=== PATIENT | female | born 1965 | race Caucasian/White ===

== ENCOUNTER 2020-05-06 11:07 | Outpatient (CLI) | payer SELFPAY ==
--- NOTE | 2020-05-06 | CT_ITS ---
WS: [id number] CT CHEST, ABDOMEN AND PELVIS WITH CONTRAST HISTORY: SOB/RLQ PAIN TECHNIQUE: Contiguous 5 mm axial imaging performed through the chest, abdomen and pelvis with IV cont rast, oral contrast has been provided. Coronal and sagittal reformats chest. Coronal and sagittal ref ormats through the abdomen and pelvis. All CT scans at [facility] use at least one of the se dose optimization techniques: automated exposure control; mA and/or kV adjustment per patient size (includes targeted exams where dose is matched to clinical indication); or iterative reconstruction. CONTRAST: Omnipaque 300; 95 mL IV. DLP: 2568.08 mGy-cm. COMPARISON: None available. Chest CT: Diffuse bilateral interstitial thickening. Linear areas of atelectasis from poor inspiratio n and multifocal areas of groundglass attenuation. No mass or pneumonia. No pleural effusions. Mild a therosclerosis aorta. No adenopathy. RIGHT thyroid nodule. Abdomen CT: Moderately enlarged liver extends over length of 20 cm with diffuse hepatic steatosis. Pr ior cholecystectomy. Normal size spleen and pancreas. No bile duct dilatation. Bilateral too small to characterize hypodensities within each kidney with no obstruction. No solid mass. No free fluid or a scites or free air. Normal aorta with no retroperitoneal adenopathy. Mild constipation. The appendix is normal. No mucosal wall thickening or inflammation. Pelvic CT: Prior hysterectomy. No free fluid in the pelvis. Minimally distended urinary bladder. T9 hemangioma. Sclerotic focus in T6 is probably a bone island. Notified HUEY Kirby at 05/06/2020 12:[address]/CT chest abd pel w con* IMPRESSION: 1. Diffuse, multilobar groundglass attenuation and interstitial thickening. Co rrelate for possible viral pneumonia. 2. Prior cholecystectomy. 3. Moderate hepatomegaly and severe hepatic steatosis. 4. No ascites or free fluid. 5. Normal appendix.
[2020-05-06] MEDS: iohexol 300 mg/mL 100 mL Btl IV (12:07)
== END 2020-05-06 11:08 | disposition home or self-care (01) ==
LOC: RAD 11:12
PROVIDERS: PCP Physician Assistant; Visit Provider Physician Assistant
DX: R06.02 Shortness of breath (principal); R10.31 Right lower quadrant pain; R16.0 Hepatomegaly, not elsewhere classified; K76.0 Fatty (change of) liver, not elsewhere classified
CPT/HCPCS: 71260; 74177

== ENCOUNTER 2020-05-10 10:58 | Inpatient (IN) | payer SELFPAY ==
[2020-05-10] VITALS (9 sets, daily range): BP systolic 111–149; BP diastolic 71–87; PULSE 88–106; RESP 15–22; TEMP 36.8–37; O2SAT 90–92; BMI 35.4
--- NOTE | 2020-05-10 11:24 | ECG_ITS ---
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 Measurements Intervals Allen Rate: 99 P: 6 CA: 155 QRS: 265 QRSD: 85 T: -4 QT: 334 QTc: 429 Interpretive Statements SINUS RHYTHM POSSIBLE RIGHT VENTRICULAR HYPERTROPHY [SOME/ALL OF: PROMINENT R IN V1, LATE TRANSITION, RAD, VANESSA, SSS] POSSIBLE ANTERIOR MYOCARDIAL INFARCTION , PROBABLY OLD [30 ms Q WAVE IN V3/V4, OR R < 0.2 mV IN V4] INFERIOR MYOCARDIAL INFARCTION , OF INDETERMINATE AGE [40+ ms Q WAVE AND/OR ST/T ABNORMALITY IN II/aVF] No previous ECG available for comparison Electronically Signed On 05-11-2020 17:20:45 CDT by Quinton Moran M.D. [id number]
--- NOTE | 2020-05-10 11:24 | XRR_ITS ---
PROCEDURE INFORMATION: Exam: XR Chest, 1 View Exam date and time: 05/10/2020 12:26 PM Age: 54 years old Clinical indication: Dyspnea and other: Hypoxia; Patient HX: Covid precautions; Additional info: Dyspnea, hypoxia TECHNIQUE: Imaging protocol: XR of the chest Views: 1 view. COMPARISON: CT chest abd pel w con* 05/06/2020 12:11 PM FINDINGS: Lungs: Possible faint peripheral ill-defined foci of airspace disease. No focal peripheral lung consolidation, air bronchogram formation, or silhouette sign. Pleural space: No pleural effusion or pneumothorax. Heart/Mediastinum: The cardiac silhouette is not enlarged. The mediastinal contours are normal. Vasculature: The thoracic aorta is tortuous. Bones/joints: No acute osseous abnormality. XR/XR chest 1V portable [id number] IMPRESSION: Possible mild bilateral peripheral airspace disease. Consider follow-up CT CHEST as it would be more sensitive in detecting ground-glass opacities typical of COVID-19 pneumonia.
--- NOTE | 2020-05-10 11:40 | PC.NURSE ---
Pt swabbed for COVID, all precautions maintained.
[2020-05-10 11:46] LABS: Basophils % 0.3 %; Eosinophils % 0.3 %; Hematocrit 36.8 % (37.0-47.0); Lymphocytes # 4.1 10^3/uL (0.8-4.8); Lymphocytes % 29.7 %; Mean Corpuscular HGB Conc 32.6 g/dL (30.0-36.0); Mean Corpuscular Hemoglobin 30.1 pg (28.0-34.0); Mean Corpuscular Volume 92.2 fL (81-99); Monocytes # 1.3 10^3/uL (0.2-0.9); Monocytes % 9.6 %; Neutrophils % 59.2 %; Nucleated Red Blood Cells % 0 %; Platelet Count 460 10^3/cmm (130-400); Red Blood Count 3.99 10^6/uL (4.1-5.3); Red Cell Distribution Width 11.9 % (12.1-15.1); White Blood Count 13.7 10^3/uL (4.0-10.0)
--- NOTE | 2020-05-10 11:55 | ED_ITS ---
HPI - Fever General: Chief Complaint: Fever Stated Complaint: SOB Time Seen by Provider: 05/10/20 11:01 History of Present Illness: HPI Narrative: This patient is a 54-year-old diabetic female who presents with 4 weeks of symptoms. Her symptoms include cough, shortness of breath, fevers, night sweats, nausea and dry heaves, myalgias and fatigue. She denies rash. She has been to her primary care provider at [facility] several times for this. She has had testing including 2- COVID tests, one several weeks ago and 1 about 5 days ago. Both were negative. She also had testing for tickborne illnesses which came back positive for a prior infection of ehrlichiosis and possible acute [place] spotted fever. She has been on doxycycline, Augmentin, Zithromax. She finished the doxycycline yesterday. She was noted to have a markedly elevated CRP at 218 on her last round of labs. She also had a CT of her chest abdomen and pelvis on May 06 which showed viral pneumonia and severe fatty liver. She comes in today because she is still feeling so terrible. MD elicited complaint: fever, malaise, weakness and other (Shortness of breath) Pertinent past history: diabetes (Blood sugars normally run around 200-2 50. They have been around 300 with this illness.) Onset (ago): week(s) (4) Context: recent antibiotic use Exacerbating factors: nothing Relieving factors: nothing Associated symptoms: Reports flank pain, chills, cough, headache(s), myalgias, nausea, night sweats, short of breath and vomiting (Dry heaves); Deny dysuria Review of Systems General: Reports: 10 or more systems reviewed and unremarkable except in HPI and below Const: Reports: chills and night sweats Resp: Reports: dyspnea and non-productive cough GI: Reports: nausea and vomiting (Dry heaves) : Reports: flank pain; Denies: difficulty voiding or dysuria Skin/Breast: Denies: rash Neuro: Reports: headache(s) Woodrow/Lymph: Denies: easy bruising [facility] ED PFSH: Medical History (Updated 05/10/20 @ 16:44 by Willi Bills MD) Diabetes Surgical History H/O: hysterectomy Hx of cholecystectomy Family History Other Healthy adult No significant family history Social History Smoking and tobacco status: never smoked Alcohol intake: never Substance/Drug Use: never Household members: spouse Marital status: Physical Exam Const: COMMON NORMALS: no acute distress, patient oriented x3, no limitations and alert GENERAL APPEARANCE: cooperative, well kempt and other (Uncomfortable, pale) NUTRITIONAL APPEARANCE: overweight ORIENTATION/CONSCIOUSNESS: Yes awake, Yes oriented to person, Yes oriented to place and Yes oriented to time HENMT: HEAD & SCALP: normal to inspection FACE & SINUS: normal facial exam Eye: GENERAL EYE: appearance normal, both eyes and all related structures Neck/C-Spine: COMMON NORMALS: supple, no meningeal signs and no JVD Chest: COMMONS NORMALS: normal inspection of the chest Resp: EFFORT & INSPECTION: Yes tachypneic (Slightly, room air sat 88%) AUSCULTATION: diminished lung sounds diffuse Cardio: COMMON NORMALS: no JVD, regular rate, regular rhythm and No murmurs present (Cardio) RATE: regular rate RHYTHM: regular rhythm GI: COMMON NORMALS: Normal to inspection, nondistended, normoactive bowel sounds present, Soft to palpation and non-tender INSPECTION: Yes normal to inspection AUSCULTATION: Yes normoactive bowel sounds PALPATION: Yes Soft to palpation Back/Pelvis: COMMON NORMALS: thoracic and lumbar spine normal to inspection Extremity: COMMON NORMALS: normal to inspection and no pedal edema Neuro: COMMON NORMALS: patient oriented x3, moves all extremities, no focal motor deficits and no sensory deficits noted SENSORIUM/ORIENTATION: Yes alert, Yes oriented to person, Yes oriented to place and Yes oriented to time MENINGEAL SIGNS: Yes no meningeal signs Psych: COMMON NORMALS: mental status grossly normal, cooperative and normal affect APPEARANCE: Yes well kempt Skin: COMMON NORMALS: no rashes or lesions noted and turgor normal GENERAL SKIN EXAM: no rashes or lesions noted and turgor normal Course ED course: This patient has an unclear reason for her viral pneumonia apparent on her chest x-ray. She has had some blood work suggestive of tick fever but this typically does not cause a viral pneumonia picture. She has been treated with multiple and adequate antibiotics, although they may have started a little late into the treatment if this is actually tick fever. Her COVID was negative here. A PTC is pending. Given the prolonged course of her illness she will be admitted to the hospital for further evaluation. A viral respiratory panel is also pending. Vital Signs: Vital signs: Vital Signs Temperature 98.9 F 05/11/20 10:59 Pulse Rate 81 05/11/20 10:59 Respiratory Rate 16 05/11/20 10:59 Blood Pressure 121/71 05/11/20 10:59 Pulse Oximetry 93 05/11/20 10:59 MDM - Fever MDM Narrative: Medical decision making narrative: Viral pneumonia, COVID, influenza, other respiratory viral pneumonia, tick fever, less likely allergic, atypical bacterial. Lab Data: Labs: Lab Results 05/10/20 05/10/20 05/10/20 Range/Units 11:32 11:32 11:32 WBC 13.7 H (4.0-10.0) 10^3/ uL RBC 3.99 L (4.1-5.3) 10^6/u L Hgb 12.0 (11.5-15.3) g/dL Hct 36.8 L (37.0-47.0) % MCV 92.2 (81-99) fL MCH 30.1 (28.0-34.0) pg MCHC 32.6 (30.0-36.0) g/dL RDW 11.9 L (12.1-15.1) % Plt Count 460 H (130-400) 10^3/c mm MPV 10.0 (7.4-10.4) fL Neut % (Auto) 59.2 % Lymph % (Auto) 29.7 % [place] % (Auto) 9.6 % Eos % (Auto) 0.3 % Baso % (Auto) 0.3 % Neut # (Auto) 8.10 H (1.8-7.7) 10^3/u L Lymph # (Auto) 4.1 (0.8-4.8) 10^3/u L [place] # (Auto) 1.3 H (0.2-0.9) 10^3/u L Eos # (Auto) 0.0 (0.0-0.8) 10^3/u L Baso # (Auto) 0.0 (0.0-0.1) 10^3/u L Nucleated RBC % (a uto) 0 % Nucleated RBCs # 0.0 /100WBC ESR (0-15) mm/hr PT 15.40 H (12.1-14.9) SECO NDS INR 1.18 (0.8-1.2) Fibrinogen 869 H (174-498) mg/dL D-Dimer 1.13 H (0-0.59) ug/mIFE U Sodium 130 L (136-145) mmol/L Potassium 4.0 (3.5-5.1) mmol/L Chloride 94 L (98-107) mmol/L Carbon Dioxide 24 (22-29) mmol/L Anion Gap 16.0 (5-19) BUN 11 (6-20) mg/dL Creatinine 0.6 (0.5-0.9) mg/dL GFR Calculation 103.4 (90-130) mL/min Glucose 325 H (65-115) mg/dL Calculated Osmolal ity 279 L (285-295) mOsm/k g Lactic Acid (0.5-2.2) mmol/L Calcium 8.9 (8.5-10.5) mg/dL Ferritin 879 H (15-150) ng/mL Total Bilirubin 0.8 (0.15-1.2) mg/dL AST 15 (0-32) U/L ALT 12 (0-33) U/L Alkaline Phosphata se 49 (35-105) IU/L Lactate Dehydrogen ase 147 (135-214) U/L C-Reactive Protein 246.6 H (0.0-4.9) mg/L NT-Pro-B Natriuret Pep 70 (0-125) pg/mL Total Protein 8.2 (6.6-8.7) g/dL Albumin 3.5 (3.5-5.2) g/dL Globulin 4.7 H (1.3-4.6) g/dL Procalcitonin 0.17 (0-0.5) ng/mL TSH (0.27-4.20) uIU/ mL Nasal/Oral COVID-1 9 PCR Influenza Type A A g (Negative) Influenza Type B A g (Negative) SARS-CoV-2 Ag (Rap id) (Negative) 05/10/20 05/10/20 05/10/20 Range/Units 11:32 11:32 11:32 WBC (4.0-10.0) 10^3/ uL RBC (4.1-5.3) 10^6/u L Hgb (11.5-15.3) g/dL Hct (37.0-47.0) % MCV (81-99) fL MCH (28.0-34.0) pg MCHC (30.0-36.0) g/dL RDW (12.1-15.1) % Plt Count (130-400) 10^3/c mm MPV (7.4-10.4) fL Neut % (Auto) % Lymph % (Auto) % [place] % (Auto) % Eos % (Auto) % Baso % (Auto) % Neut # (Auto) (1.8-7.7) 10^3/u L Lymph # (Auto) (0.8-4.8) 10^3/u L [place] # (Auto) (0.2-0.9) 10^3/u L Eos # (Auto) (0.0-0.8) 10^3/u L Baso # (Auto) (0.0-0.1) 10^3/u L Nucleated RBC % (a uto) % Nucleated RBCs # /100WBC ESR 103 H (0-15) mm/hr PT (12.1-14.9) SECO NDS INR (0.8-1.2) Fibrinogen (174-498) mg/dL D-Dimer (0-0.59) ug/mIFE U Sodium (136-145) mmol/L Potassium (3.5-5.1) mmol/L Chloride (98-107) mmol/L Carbon Dioxide (22-29) mmol/L Anion Gap (5-19) BUN (6-20) mg/dL Creatinine (0.5-0.9) mg/dL GFR Calculation (90-130) mL/min Glucose (65-115) mg/dL Calculated Osmolal ity (285-295) mOsm/k g Lactic Acid 1.6 (0.5-2.2) mmol/L Calcium (8.5-10.5) mg/dL Ferritin (15-150) ng/mL Total Bilirubin (0.15-1.2) mg/dL AST (0-32) U/L ALT (0-33) U/L Alkaline Phosphata se (35-105) IU/L Lactate Dehydrogen ase (135-214) U/L C-Reactive Protein (0.0-4.9) mg/L NT-Pro-B Natriuret Pep (0-125) pg/mL Total Protein (6.6-8.7) g/dL Albumin (3.5-5.2) g/dL Globulin (1.3-4.6) g/dL Procalcitonin (0-0.5) ng/mL TSH 1.91 (0.27-4.20) uIU/ mL Nasal/Oral COVID-1 9 PCR Influenza Type A A g (Negative) Influenza Type B A g (Negative) SARS-CoV-2 Ag (Rap id) (Negative) 05/10/20 05/10/20 05/10/20 Range/Units 11:36 12:30 13:03 WBC (4.0-10.0) 10^3/ uL RBC (4.1-5.3) 10^6/u L Hgb (11.5-15.3) g/dL Hct (37.0-47.0) % MCV (81-99) fL MCH (28.0-34.0) pg MCHC (30.0-36.0) g/dL RDW (12.1-15.1) % Plt Count (130-400) 10^3/c mm MPV (7.4-10.4) fL Neut % (Auto) % Lymph % (Auto) % [place] % (Auto) % Eos % (Auto) % Baso % (Auto) % Neut # (Auto) (1.8-7.7) 10^3/u L Lymph # (Auto) (0.8-4.8) 10^3/u L [place] # (Auto) (0.2-0.9) 10^3/u L Eos # (Auto) (0.0-0.8) 10^3/u L Baso # (Auto) (0.0-0.1) 10^3/u L Nucleated RBC % (a uto) % Nucleated RBCs # /100WBC ESR (0-15) mm/hr PT (12.1-14.9) SECO NDS INR (0.8-1.2) Fibrinogen (174-498) mg/dL D-Dimer (0-0.59) ug/mIFE U Sodium (136-145) mmol/L Potassium (3.5-5.1) mmol/L Chloride (98-107) mmol/L Carbon Dioxide (22-29) mmol/L Anion Gap (5-19) BUN (6-20) mg/dL Creatinine (0.5-0.9) mg/dL GFR Calculation (90-130) mL/min Glucose (65-115) mg/dL Calculated Osmolal ity (285-295) mOsm/k g Lactic Acid (0.5-2.2) mmol/L Calcium (8.5-10.5) mg/dL Ferritin (15-150) ng/mL Total Bilirubin (0.15-1.2) mg/dL AST (0-32) U/L ALT (0-33) U/L Alkaline Phosphata se (35-105) IU/L Lactate Dehydrogen ase (135-214) U/L C-Reactive Protein (0.0-4.9) mg/L NT-Pro-B Natriuret Pep (0-125) pg/mL Total Protein (6.6-8.7) g/dL Albumin (3.5-5.2) g/dL Globulin (1.3-4.6) g/dL Procalcitonin (0-0.5) ng/mL TSH (0.27-4.20) uIU/ mL Nasal/Oral COVID-1 9 PCR Negative Influenza Type A A g Negative (Negative) Influenza Type B A g Negative (Negative) SARS-CoV-2 Ag (Rap id) Negative (Negative) Discharge Plan Discharge Patient Disposition: Admitted As Inpatient Admit Provider: Willi Bills Clinical Impression: Pneumonia, viral, COVID-19 virus test result unknown Diabetes Qualifiers: Diabetes mellitus type: type 2 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
[2020-05-10 12:05] LABS: INR 1.18 (0.8-1.2)
[2020-05-10 12:07] LABS: Fibrinogen 869 mg/dL (174-498)
[2020-05-10 12:09] LABS: D Dimer 1.13 ug/mIFEU (0-0.59)
[2020-05-10 12:10] LABS: Lactic Sepsis W/Reflex 1.6 mmol/L (0.5-2.2)
[2020-05-10 12:20] LABS: NT Pro B Type Natriuretic Pept 70 pg/mL (0-125); Procalcitonin 0.17 ng/mL (0-0.5)
[2020-05-10 12:32] LABS: Alanine Aminotransferase 12 U/L (0-33); Albumin Level 3.5 g/dL (3.5-5.2); Alkaline Phosphatase 49 IU/L (35-105); Aspartate Amino Transferase 15 U/L (0-32); Blood Urea Nitrogen 11 mg/dL (6-20); C Reactive Protein 246.6 mg/L (0.0-4.9); Calcium 8.9 mg/dL (8.5-10.5); Carbon Dioxide 24 mmol/L (22-29); Chloride 94 mmol/L (98-107); Creatinine Clr Calc Pharmacy 137.6182; Ferritin 879 ng/mL (15-150); Globulin 4.7 g/dL (1.3-4.6); Glomerular Filtration Rate 103.4 mL/min (90-130); Glucose 325 mg/dL (65-115); Lactate Dehydrogenase 147 U/L (135-214); Osmolality Calculated 279 mOsm/kg (285-295); Sodium 130 mmol/L (136-145); Total Bilirubin 0.8 mg/dL (0.15-1.2); Total Protein 8.2 g/dL (6.6-8.7)
[2020-05-10] MEDS: sodium chloride 0.9% 1,000 ML 150 ML IV ×2 (12:33→18:14)
[2020-05-10 13:31] LABS: SARS Covid-2 Antigen Negative (Negative)
[2020-05-10 15:03] LABS: Erythrocyte Sedimentation Rate 103 mm/hr (0-15)
--- NOTE | 2020-05-10 15:17 | PC.NURSE ---
Notified Dr. Bills patients arrival on floor and need for orders.
--- NOTE | 2020-05-10 16:04 | PM.HP ---
Providers/Chief Complaint Admitting Physician: Willi Bills Primary Care Provider: Chacha Whitmore Chief Complaint: SOB History of Present Illness Angela Estrada is a pleasant 54 year old lady with 4 week history of malaise, sweats, subjective fever, headaches, 12 lb weight loss, with symptoms not improving despite several courses of antibiotics. 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 She notes did not have any improvement despite this. She is also been undergoing now second day of Augmentin and azithromycin treatment. She reports mild intermittent cough productive of just clear sputum. Denies any chest pain or pressure. No hemoptysis. Has had loss of appetite as nothing tastes good. Denies any abdominal pain or diarrhea. She lives at home with her who has not had any illness at any time recently. She has been tested for COVID-19 by rapid antibody test at PCPs office which was negative. She denies history of VTE. Denies history of any autoimmune condition. Denies seeing any rashes. She does have cats and dogs at home which are outdoor pets. Denies keeping other pets. She has seasonal allergies, and takes Zyrtec year-round due to different allergies. She denies any prior history of TB. Has had skin test before which were negative, although has not had one in a while. Denies any exposure to ill persons. Denies any incarceration or homelessness. Review of Systems Const: Reports: fever(s) (Subjective), chills, body aches, change in appetite, change in weight (12 pound weight loss in the last 1 month), malaise, diaphoresis and other (Recurrent headaches. Denies photosensitivity.) Eyes: Denies: change in vision or eye redness ENMT: Denies: throat pain, oral sores or ear or mastoid pain Card: Denies: chest pain, edema, pre-syncope or dyspnea on exertion Resp: Reports: dyspnea and productive cough; Denies: wheezing, pain on inspiration, change in phlegm color or hemoptysis GI: Denies: abdominal pain, nausea, vomiting, diarrhea, constipation, hematochezia or melena : Denies: flank pain, urinary frequency or hematuria Musc: Denies: back pain, joint swelling or joint redness Skin/Breast: Denies: rash, sores or new lesions Neuro: Reports: headache(s); Denies: numbness in extremities, weakness in extremities, dizziness, confusion or seizure-like activity Endo: Denies: polyuria or polydipsia Woodrow/Lymph: Denies: easy bleeding or purpura All/Imm: Denies: urticaria, throat swelling or tongue swelling Medications/Allergies Home Medications Medication Instructions Recorded Confirmed Last Taken Type PNV cmb#95-ferrous fumarate-FA 1 tab PO DAILY 05/10/20 05/10/20 Unknown History [] Vitamin C 1 tab PO DAILY PRN 05/10/20 05/10/20 Unknown History alendronate 70 mg PO Q7D 05/10/20 05/10/20 Unknown History amoxicillin-pot clavulanate 2 tab PO BID 05/10/20 05/10/20 05/09/20 History rqwystp-ccaxigltkhktq-igjgcfvk 1 tab PO PRN 05/10/20 05/10/20 Unknown History [Excedrin Migraine] azithromycin See Rx Instructions .ROUTE .COMPLEX 05/10/20 05/10/20 05/09/20 History calcium carbonate-vitamin D3 1 tab PO DAILY 05/10/20 05/10/20 Unknown History [Calcium 500 + D] cetirizine [Zyrtec] 10 mg PO DAILY PRN 05/10/20 05/10/20 Unknown History citalopram 40 mg PO DAILY 05/10/20 05/10/20 05/09/20 History glyburide 5 mg PO DAILY 05/10/20 05/10/20 05/09/20 History ibuprofen 600 mg PO PRN 05/10/20 05/10/20 Unknown History metformin 1,000 mg PO BID 05/10/20 05/10/20 05/09/20 History trazodone 50 mg PO BEDTIME PRN 05/10/20 05/10/20 05/09/20 History Allergies Allergy/AdvReac Type Severity Reaction Status Date / Time No Known Allergies Allergy Verified 05/10/20 11:24 PFSH Acute PFSH: Medical History (Updated 05/10/20 @ 16:44 by Willi Bills MD) Diabetes Surgical History H/O: hysterectomy Hx of cholecystectomy Family History Other Healthy adult No significant family history Social History Smoking and tobacco status: never smoked Alcohol intake: never Substance/Drug Use: never Household members: spouse Marital status: Vitals/I&O/Wt Last Vital Signs Temp 98.2 F 05/10/20 15:01 Pulse 99 05/10/20 15:01 Resp 22 H 05/10/20 15:01 BP 143/87 05/10/20 15:01 Pulse Ox 92 05/10/20 15:01 Weight last 48 hrs Weight 108.862 kg Physical Exam Const: COMMON NORMALS: no acute distress and patient oriented x3 HENMT: COMMON NORMALS: oropharynx normal Neck/C-Spine: COMMON NORMALS: no JVD Resp: COMMON NORMALS: normal respiratory effort and clear to auscultation bilaterally AUSCULTATION: clear to auscultation bilaterally Cardio: COMMON NORMALS: no JVD, regular rhythm, S1 normal heart sound present, S2 normal heart sound present and No murmurs present (Cardio) RHYTHM: regular rhythm HEART SOUNDS: S1 normal heart sound present and S2 normal heart sound present GI: COMMON NORMALS: Normal to inspection, nondistended, normoactive bowel sounds present, Soft to palpation and non-tender PALPATION: Yes Soft to palpation Extremity: COMMON NORMALS: no joint enlargement and no pedal edema Neuro: COMMON NORMALS: patient oriented x3 and moves all extremities Skin: COMMON NORMALS: no rashes or lesions noted GENERAL SKIN EXAM: no rashes or lesions noted Data : 05/10/20 11:32 05/10/20 11:32 Micro: Microbiology 05/10/20 11:34 Blood Culture - Preliminary Blood SPECIMEN COLLECTED 05/10/20 11:32 Blood Culture - Preliminary Blood SPECIMEN COLLECTED A&P Assessment and plan (1) Malaise and fatigue: Discussed with her possible etiologies, including infectious, inflammatory. At this time also cannot exclude VTE, and she does have risk factors. Reports about 4 weeks of malaise, chills, subjective fevers, muscle aches, headaches, cough productive of clear sputum. Underwent treatment with a course of doxycycline for possibility of tickborne illness, testing positive for RMSF, ehrlichiosis, although denies having any rash. Took a 10-day course of doxycycline and did not note any improvement. These conditions are not commonly associated with pulmonary symptoms, although it is not impossible. For now empirically will resume doxycycline, although this appears less likely, RMSF also given she has had no rash at all. No response to Augmentin and azithromycin so far. Possibility of persistent pneumonia with groundglass opacities noted on CT. Discussed with her possibility of persistent pneumonia, possibly viral, we are also testing for COVID-19 by PCR, although rapid antigen was negative in the ER, rapid antibody test reportedly negative in the office. She has not been requiring any oxygen. Extensive viral panel has been sent out from ER. We will also add bacterial panel, as well as histoplasma, Blastomyces urine antigens, as well as PCP and MTB from sputum, although suspicion for this is lower, as she has never had positive skin test in the past, has had no exposure or risk factors. Check mycoplasma panel. She is immunocompromise secondary to diabetes, but otherwise is not on any immunosuppressive medications. Does not have any history of recurrent infections in the past. Will check BD glucan, galactomannan. Due to possibility of bacterial pneumonia, for now we will empirically treat with Levaquin. For now with elevated d-dimer, risk factors for PE, discussed with her that this is still consideration on differential diagnosis. For now she is agreeable to empiric anticoagulation. Will order VQ scan. She did just have recently CT scan with contrast, however, prescription with radiology this was not a good enough study to evaluate for possibility of PE. For now started on Lovenox. Ordered VQ scan to avoid repeat contrast administration with possibility of contrast nephropathy. She is in agreement to proceed this way. Discussed with her also that we cannot exclude possibility of other inflammatory conditions, possibly autoimmune. She denies any history of autoimmune conditions in the past. Denies any family history. Denies any renal history or other problems. Has had no rashes. Does have elevation of CRP and ESR. Will check NOLAN, ANCA. She is agreeable, if we are not finding a cause for her symptoms, to also see a radio program director as other etiologies may also need to be considered. Night events eosinophils elevated, however, she does have history of recurrent allergic rhinitis, conjunctivitis, with reported allergies to multiple things including grass. Hypersensitivity pneumonitis may need to be considered. She has cats and dogs, although they are outdoor pets. If no improvement, no additional obvious cause, additional ILD's may need to be considered as discussed with her. Her symptoms are associated with unintended weight loss of 12 pounds in the last 4 weeks. She has been having recurrent headaches, but otherwise no other meningeal signs to indicate LITURGICAL MUSIC DIRECTOR infection at this time. No focal normalities. Status: Acute (2) Persistent pneumonia: As above. Monitor oxygenation. He did not respond to courses of doxycycline, Augmentin, azithromycin. Status: Acute (3) Diabetes: Consistent carbohydrate diet. Hold metformin. Mild insulin sliding scale. 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 Coding Level of Care Code Acute Director Of Business Development for [facility] Diagnoses Malaise and fatigue R53.81; R53.83 Persistent pneumonia J18.9 Diabetes E11.9 Diabetes mellitus skilled nursing insulin use: unspecified adjunct faculty for medical terminology insulin use status Diabetes mellitus type: type 2
[2020-05-10 16:38] LABS: LAB Peripheral Smear Sent for Review
[2020-05-10] MEDS: levofloxacin-dextrose 5 % 750 MG/150 ML PREMIX 100 MG IV (17:05)
[2020-05-10] MEDS: enoxaparin 100 mg/mL Syringe SUBCUT (17:05)
[2020-05-10 17:06] LABS: Thyroid Stimulating Hormone 1.91 uIU/mL (0.27-4.20)
[2020-05-10 17:22] LABS: Glucose Point of Care 247 mg/dL (70-110)
[2020-05-10] MEDS: doxycycline 100 MG in sodium chloride 0.9% (plus) 100 ML IV (18:14)
[2020-05-10 18:26] LABS: Influenza A by IFA Negative (Negative)
[2020-05-10 18:27] LABS: Influenza B by IFA Negative (Negative)
[2020-05-10 20:36] LABS: Glucose Point of Care 334 mg/dL (70-110)
[2020-05-11] VITALS (8 sets, daily range): BP systolic 118–126; BP diastolic 71–82; PULSE 78–95; RESP 16–18; TEMP 36.7–37.3; O2SAT 92–95
[2020-05-11] MEDS: sodium chloride 0.9% 1,000 ML 150 ML IV ×3 (01:00→13:45)
[2020-05-11 05:22] LABS: Basophils % 0.4 %; Eosinophils # 0.1 10^3/uL (0.0-0.8); Eosinophils % 1.4 %; Hematocrit 33.6 % (37.0-47.0); Hemoglobin 10.7 g/dL (11.5-15.3); Lymphocytes # 3.2 10^3/uL (0.8-4.8); Lymphocytes % 35.9 %; Mean Corpuscular HGB Conc 31.8 g/dL (30.0-36.0); Mean Corpuscular Hemoglobin 30.1 pg (28.0-34.0); Mean Corpuscular Volume 94.6 fL (81-99); Mean Platelet Volume 10.3 fL (7.4-10.4); Monocytes # 1.1 10^3/uL (0.2-0.9); Monocytes % 12.6 %; Neutrophils # 4.36 10^3/uL (1.8-7.7); Neutrophils % 48.5 %; Nucleated Red Blood Cells % 0 %; Platelet Count 362 10^3/cmm (130-400); Red Blood Count 3.55 10^6/uL (4.1-5.3); Red Cell Distribution Width 12.1 % (12.1-15.1)
[2020-05-11] MEDS: enoxaparin 100 mg/mL Syringe SUBCUT ×2 (05:28→16:52)
[2020-05-11] MEDS: doxycycline 100 MG in sodium chloride 0.9% (plus) 100 ML IV ×2 (05:28→17:57)
[2020-05-11 06:01] LABS: Alanine Aminotransferase 8 U/L (0-33); Albumin Level 2.8 g/dL (3.5-5.2); Alkaline Phosphatase 41 IU/L (35-105); Aspartate Amino Transferase 12 U/L (0-32); Blood Urea Nitrogen 9 mg/dL (6-20); Calcium 7.9 mg/dL (8.5-10.5); Carbon Dioxide 24 mmol/L (22-29); Chloride 99 mmol/L (98-107); Globulin 4.4 g/dL (1.3-4.6); Glomerular Filtration Rate 103.4 mL/min (90-130); Glucose 276 mg/dL (65-115); Osmolality Calculated 284 mOsm/kg (285-295); Sodium 134 mmol/L (136-145); Total Bilirubin 0.4 mg/dL (0.15-1.2); Total Protein 7.2 g/dL (6.6-8.7)
[2020-05-11 06:40] LABS: Glucose Point of Care 296 mg/dL (70-110)
[2020-05-11] MEDS: citalopram 20 mg Tablet 40 MG PO (08:48)
--- NOTE | 2020-05-11 09:42 | PC.NURSE ---
sputum sent to lab
[2020-05-11 10:21] LABS: Coronavirus Lab Test PTC Negative
--- NOTE | 2020-05-11 10:41 | PC.NURSE ---
[facility] called and said they can not do test until patient is off Airborne precautions for TB. notified Dr Bills
[2020-05-11 10:58] LABS: Glucose Point of Care 224 mg/dL (70-110)
[2020-05-11 13:52] LABS: Anti-Nuclear Antibody Screen NEGATIVE (NEGATIVE)
[2020-05-11] MEDS: acetaminophen 325 mg Tablet 650 MG PO (13:57)
--- NOTE | 2020-05-11 14:02 | PC.NURSE ---
urine sample sent to lab
--- NOTE | 2020-05-11 14:24 | PC.NURSE ---
Patient gave verbal permission to speak with Amina
[2020-05-11] MEDS: levofloxacin-dextrose 5 % 750 MG/150 ML PREMIX 100 MG IV (16:51)
[2020-05-11 16:56] LABS: Glucose Point of Care 215 mg/dL (70-110)
--- NOTE | 2020-05-11 17:51 | P.PN_ITS ---
Subjective Subjective: Interval history: So far she is feeling slightly better, so far denies recurrence of chills. No muscle aches. Currently denies headache. Vitals/I&O/Wt Last Vital Signs Temp 99.1 F 05/11/20 16:47 Pulse 78 05/11/20 16:47 Resp 16 05/11/20 16:47 BP 118/74 05/11/20 16:47 Pulse Ox 95 05/11/20 16:47 05/11/20 05/11/20 05/11/20 06:59 14:59 22:59 Intake Total 1000 / 2582.5 1982.5 / 1981.5 Output Total 1650 / 1650 600 / 600 Balance -650 / 932.5 1382.5 / 1382.5 Weight last 48 hrs Weight 112.499 kg Weight 108.862 kg Physical Exam Const: COMMON NORMALS: no acute distress and patient oriented x3 HENMT: COMMON NORMALS: oropharynx normal Neck/C-Spine: COMMON NORMALS: no JVD Resp: COMMON NORMALS: normal respiratory effort and clear to auscultation bilaterally AUSCULTATION: clear to auscultation bilaterally Cardio: COMMON NORMALS: no JVD, regular rhythm, S1 normal heart sound present, S2 normal heart sound present and No murmurs present (Cardio) RHYTHM: regular rhythm HEART SOUNDS: S1 normal heart sound present and S2 normal heart sound present GI: COMMON NORMALS: Normal to inspection, nondistended, normoactive bowel sounds present, Soft to palpation and non-tender PALPATION: Yes Soft to palpation Extremity: COMMON NORMALS: no joint enlargement and no pedal edema Neuro: COMMON NORMALS: patient oriented x3 and moves all extremities Skin: COMMON NORMALS: no rashes or lesions noted GENERAL SKIN EXAM: no rashes or lesions noted Data : 05/11/20 04:28 05/11/20 04:28 Micro: Microbiology 05/11/20 13:40 Legionella Urinary Antigen - Final Urine,Voided Bacterial Antigens - Final 05/10/20 11:34 Blood Culture - Preliminary Blood NEGATIVE TO DATE 05/10/20 11:32 Blood Culture - Preliminary Blood NEGATIVE TO DATE A&P Assessment and plan (1) Malaise and fatigue: Subjectively she is doing a little better today. We have not been able to catch a fever here, although low-grade temperature of 99.1 is present today. So far coronavirus testing has been negative, including PCR. Rapid influenza negative. Other tests are pending. NOLAN screen has come back negative. Leukocytosis is improved down to normal. Tachycardia resolved. Sepsis suspected on presentation with leukocytosis of 13.7, tachycardia with heart rate of 99, appears to be resolving. Since she appears to be improving With current treatment, for now we will continue with Levaquin. If continues to improve, and remains stable, consideration may be given to follow-up with pulmonology on outpatient side. Continue collection of ordered cultures. Discussed with her possible etiologies, including infectious, inflammatory including autoimmune or allergic. At this time also cannot exclude VTE, and she does have risk factors. Unfortunately VQ scan could not be obtained due to precautions empirically for TB. Of renal function remains stable, may need to consider CTA tomorrow. 4 weeks of malaise, chills, subjective fevers, muscle aches, headaches, cough productive of clear sputum. Underwent treatment preadmission with a course of doxycycline for possibility of tickborne illness, testing positive for RMSF, ehrlichiosis, although denies having any rash. Took a 10-day course of doxycycline and did not note any improvement. These conditions are not commonly associated with pulmonary symptoms, although it is not impossible. For now empirically will resume doxycycline, although this appears less likely, RMSF also given she has had no rash at all. No response to Augmentin and azithromycin. Possibility of persistent pneumonia with groundglass opacities noted on CT. Discussed with her possibility of persistent pneumonia, possibly viral. Negative COVID-19 by PCR, rapid antibody test reportedly negative in the office. She has not been requiring any oxygen. Extensive viral panel has been sent out from ER. Requested also add bacterial panel, as well as histoplasma, Blastomyces urine antigens, as well as PCP and MTB from sputum, although suspicion for this is lower, as she has never had positive skin test in the past, has had no exposure or risk factors. Check mycoplasma panel. She is immunocompromised secondary to diabetes, but otherwise is not on any immunosuppressive medications. Does not have any history of recurrent infections in the past. Will check BD glucan, galactomannan. Due to possibility of bacterial pneumonia, for now empirically treat with Levaquin. For now with elevated d-dimer, risk factors for PE, discussed with her that this is still consideration on differential diagnosis. For now continue empiric anticoagulation. Discussed with her also that we cannot exclude possibility of other inflammatory conditions, possibly autoimmune. She denies any history of autoimmune conditions in the past. Denies any family history. Denies any renal history or other problems. Has had no rashes. Does have elevation of CRP and ESR. Pending ANCA. She is agreeable, if we are not finding a cause for her symptoms, to also see a small arms repairer as other etiologies may also need to be considered. Night events eosinophils elevated, however, she does have history of recurrent allergic rhinitis, conjunctivitis, with reported allergies to multiple things including grass. Hypersensitivity pneumonitis may need to be considered. She has cats and dogs, although they are outdoor pets. If no improvement, no additional obv ious cause, additional ILD's may need to be considered as discussed with her. Her symptoms are associated with unintended weight loss of 12 pounds in the last 4 weeks. She has been having recurrent headaches, but otherwise no other meningeal signs to indicate OUTREACH SPECIALIST infection at this time. No focal normalities. Status: Acute (2) Persistent pneumonia: As above. Monitor oxygenation. He did not respond to courses of doxycycline, Augmentin, azithromycin. Status: Acute (3) Diabetes: Consistent carbohydrate diet. Hold metformin. Mild insulin sliding scale. 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 Coding Level of Care Code Acute Dental Hygiene Administrative Assistant for [facility] Fwd Exam Comprehensive Diagnoses Malaise and fatigue R53.81; R53.83 Persistent pneumonia J18.9 Diabetes E11.9 Diabetes mellitus intermediate school teacher insulin use: unspecified [facility] insulin use status Diabetes mellitus type: type 2
[2020-05-11 20:11] LABS: Glucose Point of Care 292 mg/dL (70-110)
[2020-05-12] VITALS (11 sets, daily range): BP systolic 117–137; BP diastolic 72–80; PULSE 71–84; RESP 16–18; TEMP 36.6–37.6; O2SAT 92–96
[2020-05-12] MEDS: enoxaparin 100 mg/mL Syringe SUBCUT (05:50)
[2020-05-12] MEDS: sodium chloride 0.9% 1,000 ML 150 ML IV ×3 (05:58→17:10)
[2020-05-12] MEDS: doxycycline 100 MG in sodium chloride 0.9% (plus) 100 ML IV ×2 (05:58→21:16)
[2020-05-12 05:59] LABS: Basophils % 0.5 %; Eosinophils # 0.2 10^3/uL (0.0-0.8); Hematocrit 31.4 % (37.0-47.0); Hemoglobin 9.9 g/dL (11.5-15.3); Lymphocytes # 2.8 10^3/uL (0.8-4.8); Lymphocytes % 34.4 %; Mean Corpuscular HGB Conc 31.5 g/dL (30.0-36.0); Mean Corpuscular Hemoglobin 29.7 pg (28.0-34.0); Mean Corpuscular Volume 94.3 fL (81-99); Mean Platelet Volume 10.2 fL (7.4-10.4); Neutrophils % 49.9 %; Nucleated Red Blood Cells % 0 %; Platelet Count 371 10^3/cmm (130-400); Red Blood Count 3.33 10^6/uL (4.1-5.3); Red Cell Distribution Width 12.1 % (12.1-15.1); White Blood Count 8.2 10^3/uL (4.0-10.0)
[2020-05-12] MEDS: acetaminophen 325 mg Tablet 650 MG PO ×2 (06:02→17:32)
[2020-05-12 06:14] LABS: Alanine Aminotransferase 7 U/L (0-33); Albumin Level 2.8 g/dL (3.5-5.2); Alkaline Phosphatase 41 IU/L (35-105); Anion Gap 10.4 (5-19); Aspartate Amino Transferase 12 U/L (0-32); Blood Urea Nitrogen 6 mg/dL (6-20); Calcium 7.3 mg/dL (8.5-10.5); Carbon Dioxide 25 mmol/L (22-29); Chloride 103 mmol/L (98-107); Globulin 3.9 g/dL (1.3-4.6); Glomerular Filtration Rate 127.6 mL/min (90-130); Glucose 254 mg/dL (65-115); Osmolality Calculated 284 mOsm/kg (285-295); Potassium 3.4 mmol/L (3.5-5.1); Sodium 135 mmol/L (136-145); Total Bilirubin 0.4 mg/dL (0.15-1.2); Total Protein 6.7 g/dL (6.6-8.7)
[2020-05-12 07:16] LABS: Glucose Point of Care 264 mg/dL (70-110)
--- NOTE | 2020-05-12 08:40 | PC.NURSE ---
Patient awake alert and oriented, sitting up in bed eating breakfast, denies pain, denies shortness of breath, intermittent cough noted nonproductive, reports, I just want to know what's wrong with me, I need an answer. Understands doctor will be in to see her today to discuss further plan of care. Pleasant and understands plan of care.
[2020-05-12] MEDS: citalopram 20 mg Tablet 40 MG PO (10:04)
--- NOTE | 2020-05-12 10:14 | PC.NURSE ---
Patient refused miralax due to just having a BM, reports, the orange juice that was on my breakfast tray made me go.
[2020-05-12 12:24] LABS: Glucose Point of Care 240 mg/dL (70-110)
--- NOTE | 2020-05-12 13:34 | CT_ITS ---
WS: [id number] CTA OF THE CHEST WITH PULMONARY EMBOLISM PROTOCOL TECHNIQUE: High-resolution contrast enhanced CTA of the chest with coronal and sagittal reformatted i mages with pulmonary embolism protocol. MIP images are also reviewed. CLINICAL INFORMATION: Assess for possible PE COMPARISON: CT chest abdomen pelvis May 06, 2020 DLP: 1021.[address] scans at [facility] use at least one of these dose optimization techniques: automat ed exposure control; mA and/or kV adjustment per patient size (includes targeted exams where dose is matched to clinical indication); or iterative reconstruction. FINDINGS: Previously described hazy groundglass infiltrates in the mid and lower lungs unchanged since April 182019. No focal consolidation. No significant pleural fluid. Proximal main pulmonary arteries are normal. Normal segmental and subsegmental pulmonary arteries. No filling defects. No evidence of pulmonary embolus. No mediastinal or hilar lymphadenopathy. Normal c aliber thoracic aorta. Benign-appearing sclerotic lesion in the mid thoracic spine T7. No axillary ly mphadenopathy. Stable right thyroid nodule. Hepatomegaly. Diffuse fatty infiltration liver. CT/CT angio chest PE protcl [id number] IMPRESSION: 1. No evidence for pulmonary embolus. 2. Slight hazy groundglass infiltrates in the mid and lower lungs unchanged. N o focal consolidation. 3. No mediastinal or hilar lymphadenopathy. 4. Hepatomegaly with diffuse fatty infiltration liver. 5. Cholecystectomy.
[2020-05-12] MEDS: sodium chloride 3.5% neb 4 mL Neb INHALATION ×2 (14:03→22:56)
[2020-05-12] MEDS: iohexol 350 mg/mL 100 mL Btl IV ×2 (14:38→14:39)
--- NOTE | 2020-05-12 16:35 | P.PN_ITS ---
Subjective Subjective: Interval history: She is overall feeling better. Vitals/I&O/Wt Last Vital Signs Temp 98.6 F 05/12/20 14:52 Pulse 83 05/12/20 14:52 Resp 18 05/12/20 14:52 BP 134/75 05/12/20 14:52 Pulse Ox 94 05/12/20 14:52 05/12/20 05/12/20 05/12/20 06:59 14:59 22:59 Intake Total 1600 / 3922.5 857.5 / 857.5 Output Total 1500 / 2700 850 / 850 Balance 100 / 1222.5 7.5 / 7.5 Weight last 48 hrs Weight 112.499 kg Physical Exam Const: COMMON NORMALS: no acute distress and patient oriented x3 HENMT: COMMON NORMALS: oropharynx normal Neck/C-Spine: COMMON NORMALS: no JVD Resp: COMMON NORMALS: normal respiratory effort and clear to auscultation bilaterally AUSCULTATION: clear to auscultation bilaterally Cardio: COMMON NORMALS: no JVD, regular rhythm, S1 normal heart sound present, S2 normal heart sound present and No murmurs present (Cardio) RHYTHM: regular rhythm HEART SOUNDS: S1 normal heart sound present and S2 normal heart sound present GI: COMMON NORMALS: Normal to inspection, nondistended, normoactive bowel sounds present, Soft to palpation and non-tender PALPATION: Yes Soft to palp ation Extremity: COMMON NORMALS: no joint enlargement and no pedal edema Neuro: COMMON NORMALS: patient oriented x3 and moves all extremities Skin: COMMON NORMALS: no rashes or lesions noted GENERAL SKIN EXAM: no rashes or lesions noted Data : 05/12/20 05:17 05/12/20 05:17 Micro: Microbiology 05/11/20 13:40 Legionella Urinary Antigen - Final Urine,Voided Bacterial Antigens - Final 05/10/20 11:34 Blood Culture - Preliminary Blood NEGATIVE TO DATE 05/10/20 11:32 Blood Culture - Preliminary Blood NEGATIVE TO DATE A&P Assessment and plan (1) Malaise and fatigue: Subjectively improving. Received some low-grade temperature 99 Fahrenhe it, but no fever. Leukocytosis is resolved. Most studies are still pending. We are working on collecting sputum for AFB, pneumocystis. Unfortunately not been able to provide a good sample. Discussed with RT will need to induce with hypertonic saline. Discussion with pulmonology may do every 8 hour samples. Discussed condition and imaging with our on-call spot man. Groundglass positives appear somewhat focal, and so at this time cannot exclude infection. Continue empirically treating as she appears to be improving. If she continues to do well, if we are able to collect sputum samples for AFB, pneumocystis, and she is still not requiring any oxygen, and has no worsening, discussed with her may cautiously discharge from the hospital and have her follow-up with pulmonology in office. Minibus Driver will be able to see her in 1 week. By that time hopefully most of the studies should be back to give additional idea as to what may be causing her persistent pneumonia findings and malaise. She understands that this lab work is taking somewhat longer. Understands that in case there was worsening her condition, a higher level facility may be able to get some of these tests done faster. She agrees that at this time there is no strong indication to transfer as this option has been discussed with her. We discussed again that there may be possibility of underlying bacterial p neumonia which currently is responding to Levaquin as she is feeling better and showing clinical improvement. But cannot exclude other possibilities of a viral, fungal or other pulmonary infection. We are still also working on additional assessment for possible autoimmune causes. Pulmonology may consider additional evaluation if she is not improving, possibly with bronchoscopy with additional samples, both for culture, evaluation for eosinophils, etc. She verbalized understanding and agreement with plan. For now given persisting groundglass opacities will assess with CTA to exclude pulmonary emboli and any progression of disease. If no PE is noted, may discontinue therapeutic anticoagulation. So far coronavirus testing has been negative, including PCR. Rapid influenza negative. Other tests are pending. NOLAN screen has come back negative. Leukocytosis is improved down to normal. Tachycardia resolved. Sepsis suspected on presentation with leukocytosis of 13.7, tachycardia with heart rate of 99, appears to be resolving. Since she appears to be improving With current treatment, for now we will continue with Levaquin. If continues to improve, and remains stable, consideration may be given to follow-up with pulmonology on outpatient side. Continue collection of ordered cultures. Discussed with her possible etiologies, including infectious, inflammatory including autoimmune or allergic. At this time also cannot exclude VTE, and she does have risk factors. Unfortunately VQ scan could not be obtained due to precautions empirically for TB. Of renal function remains stable, may need to consider CTA tomorrow. 4 weeks of malaise, chills, subjective fevers, muscle aches, headaches, cough productive of clear sputum. Underwent treatment preadmission with a course of doxycycline for possibility of tickborne illness, testing positive for RMSF, ehrlichiosis, although denies having any rash. Took a 10-day course of doxycycline and did not note any improvement. These conditions are not commonly associated with pulmonary symptoms, although it is not impossible. For now empirically will resume doxycycline, although this appears less likely, RMSF also given she has had no rash at all. No response to Augmentin and azithromycin. Possibility of persistent pneumonia with groundglass opacities noted on CT. Discussed with her possibility of persistent pneumonia, possibly viral. Negative COVID-19 by PCR, rapid antibody test reportedly negative in the office. She has not been requiring any oxygen. Extensive viral panel has been sent out from ER. Requested also add bacterial panel, as well as histoplasma, Blastomyces urine antigens, as well as PCP and MTB from sputum, although suspicion for this is lower, as she has never had positive skin test in the past, has had no exposure or risk factors. Check mycoplasma panel. She is immunocompromised secondary to diabetes, but otherwise is not on any immunosuppressive medications. Does not have any history of recurrent infections in the past. Will check BD glucan, galactomannan. Due to possibility of bacterial pneumonia, for now empirically treat with Levaquin. For now with elevated d-dimer, risk factors for PE, discussed with her that this is still consideration on differential diagnosis. For now continue empiric anticoagulation. Discussed with her also that we cannot exclude possibility of other inflammatory conditions, possibly autoimmune. She denies any history of autoimmune conditions in the past. Denies any family history. Denies any renal history or other problems. Has had no rashes. Does have elevation of CRP and ESR. Pending ANCA. She is agreeable, if we are not finding a cause for her symptoms, to also see a spot man as other etiologies may also need to be considered. Night events eosinophils elevated, however, she does have history of recurrent allergic rhinitis, conjunctivitis, with reported allergies to multiple things including grass. Hypersensitivity pneumonitis may need to be considered. She has cats and dogs, although they are outdoor pets. If no improvement, no additional obvious cause, additional ILD's may need to be considered as discussed with her. Her symptoms are associated with unintended weight loss of 12 pounds in the last 4 weeks. She has been having recurrent headaches, but otherwise no other meningeal signs to indicate SPA EXPERIENCE COORDINATOR infection at this time. No focal normalities. Status: Acute (2) Persistent pneumonia: CTA chest. Discussed benefits and risks involved with study with contrast administration. She is agreeable to proceed. As above. Monitor oxygenation. He did not respond to courses of doxycycline, Augmentin, azithromycin. Status: Acute (3) Diabetes: Consistent carbohydrate diet. Hold metformin. Mild insulin sliding scale. 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
[2020-05-12] MEDS: levofloxacin-dextrose 5 % 750 MG/150 ML PREMIX 100 MG IV (17:10)
[2020-05-12 17:15] LABS: Glucose Point of Care 226 mg/dL (70-110)
[2020-05-12 20:56] LABS: Glucose Point of Care 212 mg/dL (70-110)
[2020-05-13] VITALS (8 sets, daily range): BP systolic 120–148; BP diastolic 73–82; PULSE 73–90; RESP 16–20; TEMP 36.8–38.3; O2SAT 91–95
[2020-05-13] MEDS: sodium chloride 0.9% 1,000 ML 150 ML IV ×3 (03:23→16:55)
[2020-05-13] MEDS: enoxaparin 40 mg/0.4 mL Syringe SUBCUT (05:47)
[2020-05-13 06:09] LABS: Basophils % 0.3 %; Eosinophils # 0.1 10^3/uL (0.0-0.8); Eosinophils % 1.6 %; Hematocrit 31.1 % (37.0-47.0); Hemoglobin 9.9 g/dL (11.5-15.3); Lymphocytes # 2.4 10^3/uL (0.8-4.8); Lymphocytes % 31.1 %; Mean Corpuscular HGB Conc 31.8 g/dL (30.0-36.0); Mean Corpuscular Hemoglobin 30.1 pg (28.0-34.0); Mean Corpuscular Volume 94.5 fL (81-99); Mean Platelet Volume 10.2 fL (7.4-10.4); Monocytes % 12.7 %; Neutrophils # 4.11 10^3/uL (1.8-7.7); Neutrophils % 53.1 %; Nucleated Red Blood Cells % 0 %; Platelet Count 349 10^3/cmm (130-400); Red Blood Count 3.29 10^6/uL (4.1-5.3); Red Cell Distribution Width 12.1 % (12.1-15.1); White Blood Count 7.7 10^3/uL (4.0-10.0)
[2020-05-13] MEDS: sodium chloride 3.5% neb 4 mL Neb INHALATION (06:12)
[2020-05-13 06:26] LABS: Glucose Point of Care 221 mg/dL (70-110)
[2020-05-13 07:02] LABS: Alanine Aminotransferase 12 U/L (0-33); Albumin Level 2.6 g/dL (3.5-5.2); Alkaline Phosphatase 40 IU/L (35-105); Anion Gap 13.3 (5-19); Aspartate Amino Transferase 18 U/L (0-32); Blood Urea Nitrogen 4 mg/dL (6-20); Calcium 7.7 mg/dL (8.5-10.5); Carbon Dioxide 23 mmol/L (22-29); Chloride 102 mmol/L (98-107); Globulin 3.8 g/dL (1.3-4.6); Glomerular Filtration Rate 127.6 mL/min (90-130); Glucose 224 mg/dL (65-115); Osmolality Calculated 283 mOsm/kg (285-295); Potassium 3.3 mmol/L (3.5-5.1); Sodium 135 mmol/L (136-145); Total Bilirubin 0.4 mg/dL (0.15-1.2); Total Protein 6.4 g/dL (6.6-8.7)
[2020-05-13] MEDS: doxycycline 100 MG in sodium chloride 0.9% (plus) 100 ML IV ×2 (08:39→21:25)
[2020-05-13] MEDS: potassium chloride ER 10 mEq Tablet 40 MEQ PO (08:41)
[2020-05-13] MEDS: citalopram 20 mg Tablet 40 MG PO (08:42)
[2020-05-13] MEDS: cetirizine 10 mg Tablet PO (08:43)
[2020-05-13 11:07] LABS: Glucose Point of Care 254 mg/dL (70-110)
[2020-05-13] MEDS: acetaminophen 325 mg Tablet 650 MG PO ×2 (12:22→22:44)
[2020-05-13 16:47] LABS: Glucose Point of Care 219 mg/dL (70-110)
[2020-05-13] MEDS: levofloxacin-dextrose 5 % 750 MG/150 ML PREMIX 100 MG IV (16:56)
--- NOTE | 2020-05-13 21:11 | PM.PN ---
Subjective Subjective: Interval history: No change. Overall she is feeling better. Has been working with respiratory therapy for induction of sputum to collect for samples. Vitals/I&O/Wt Last Vital Signs Temp 98.3 F 05/13/20 15:29 Pulse 73 05/13/20 15:29 Resp 18 05/13/20 15:29 BP 121/75 05/13/20 15:29 Pulse Ox 94 05/13/20 15:29 05/13/20 05/13/20 05/13/20 06:59 14:59 22:59 Intake Total 1240 / 3587.5 1345 / 1345 1240 / 2585 Output Total 1100 / 3250 700 / 700 1650 / 2350 Balance 140 / 337.5 645 / 645 -410 / 235 Weight last 48 hrs Weight 120.202 kg Physical Exam Const: COMMON NORMALS: no acute distress and patient oriented x3 HENMT: COMMON NORMALS: oropharynx normal Neck/C-Spine: COMMON NORMALS: no JVD Resp: COMMON NORMALS: normal respiratory effort and clear to auscultation bilaterally AUSCULTATION: clear to auscultation bilaterally Cardio: COMMON NORMALS: no JVD, regular rhythm, S1 normal heart sound present, S2 normal heart sound present and No murmurs present (Cardio) RHYTHM: regular rhythm HEART SOUNDS: S1 normal heart sound present and S2 normal heart sound present GI: COMMON NORMALS: Normal to inspection, nondistended, normoactive bowel sounds present, Soft to palpation and non-tender PALPATION: Yes Soft to palpation Extremity: COMMON NORMALS: no joint enlargement and no pedal edema Neuro: COMMON NORMALS: patient oriented x3 and moves all extremities Skin: COMMON NORMALS: no rashes or lesions noted GENERAL SKIN EXAM: no rashes or lesions noted Data : 05/13/20 05:40 05/13/20 05:40 Micro: Microbiology 05/11/20 09:05 Sputum Culture - Preliminary Sputum - Expectorated Sputum Gram positive jake A&P Assessment and plan (1) Malaise and fatigue: Low-grade fever today 99.9. She does report overall has been feeling better. We repeated CTA, and discussed results with her. No PE is noted. She is noted to have persistent areas of groundglass opacities. Today complete collection of needed sputum samples. Monitor for any recurrent/worsening of fever, and if remains stable, no further fever, she is agreeable with plan tomorrow to cautiously return home and follow-up in outpatient with pulmonology and PCP with regards to further reassessment, and follow-up on the pending studies. Subjectively improving. Received some low-grade temperature 99 Fahrenheit, but no fever. Leukocytosis is resolved. Most studies are still pending. We are working on collecting sputum for AFB, pneumocystis. Unfortunately not been able to provide a good sample. Discussed with RT will need to induce with hypertonic saline. Discussion with pulmonology may do every 8 hour samples. Discussed condition and imaging with our on-call bowling pin refinisher. Groundglass positives appear somewhat focal, and so at this time cannot exclude infection. Continue empirically treating as she appears to be improving. If she continues to do well, if we are able to collect sputum samples for AFB, pneumocystis, and she is still not requiring any oxygen, and has no worsening, discussed with her may cautiously discharge from the hospital and have her follow-up with pulmonology in office. Dog Pound Attendant will be able to see her in 1 week. By that time hopefully most of the studies should be back to give additional idea as to what may be causing her persistent pneumonia findings and malaise. She understands that this lab work is taking somewhat longer. Understands that in case there was worsening her condition, a higher level facility may be able to get some of these tests done faster. She agrees that at this time there is no strong indication to transfer as this option has been discussed with her. We discussed again that there may be possibility of underlying bacterial pneumonia which currently is responding to Levaquin as she is feeling better and showing clinical improvement. But cannot exclude other possibilities of a viral, fungal or other pulmonary infection. We are still also working on additional assessment for possible autoimmune causes. Pulmonology may consider additional evaluation if she is not improving, possibly with bronchoscopy with additional samples, both for culture, evaluation for eosinophils, etc. She verbalized understanding and agreement with plan. For now given persisting groundglass opacities will assess with CTA to exclude pulmonary emboli and any progression of disease. If no PE is noted, may discontinue therapeutic anticoagulation. So far coronavirus testing has been negative, including PCR. Rapid influenza negative. Other tests are pending. NOLAN screen has come back negative. Leukocytosis is improved down to normal. Tachycardia resolved. Sepsis suspected on presentation with leukocytosis of 13.7, tachycardia with heart rate of 99, appears to be resolving. Since she appears to be improving With current treatment, for now we will continue with Levaquin. If continues to improve, and remains stable, consideration may be given to follow-up with pulmonology on outpatient side. Continue collection of ordered cultures. Discussed with her possible etiologies, including infectious, inflammatory including autoimmune or allergic. At this time also cannot exclude VTE, and she does have risk factors. Unfortunately VQ scan could not be obtained due to precautions empirically for TB. Of renal function remains stable, may need to consider CTA tomorrow. 4 weeks of malaise, chills, subjective fevers, muscle aches, headaches, cough productive of clear sputum. Underwent treatment preadmission with a course of doxycycline for possibility of tickborne illness, testing positive for RMSF, ehrlichiosis, although denies having any rash. Took a 10-day course of doxycycline and did not note any improvement. These conditions are not commonly associated with pulmonary symptoms, although it is not impossible. For now empirically will resume doxycycline, although this appears less likely, RMSF also given she has had no rash at all. No response to Augmentin and azithromycin. Possibility of persistent pneumonia with groundglass opacities noted on CT. Discussed with her possibility of persistent pneumonia, possibly viral. Negative COVID-19 by PCR, rapid antibody test reportedly negative in the office. She has not been requiring any oxygen. Extensive viral panel has been sent out from ER. Requested also add bacterial panel, as well as histoplasma, Blastomyces urine antigens, as well as PCP and MTB from sputum, although suspicion for this is lower, as she has never had positive skin test in the past, has had no exposure or risk factors. Check mycoplasma panel. She is immunocompromised secondary to diabetes, but otherwise is not on any immunosuppressive medications. Does not have any history of recurrent infections in the past. Will check BD glucan, galactomannan. Due to possibility of bacterial pneumonia, for now empirically treat with Levaquin. For now with elevated d-dimer, risk factors for PE, discussed with her that this is still consideration on differential diagnosis. For now continue empiric anticoagulation. Discussed with her also that we cannot exclude possibility of other inflammatory conditions, possibly autoimmune. She denies any history of autoimmune conditions in the past. Denies any family history. Denies any renal history or other problems. Has had no rashes. Does have elevation of CRP and ESR. Pending ANCA. She is agreeable, if we are not finding a cause for her symptoms, to also see a bowling pin refinisher as other etiologies may also need to be considered. Night events eosinophils elevated, however, she does have history of recurrent allergic rhinitis, conjunctivitis, with reported allergies to multiple things including grass. Hypersensitivity pneumonitis may need to be considered. She has cats and dogs, although they are outdoor pets. If no improvement, no additional obvious cause, additional ILD's may need to be considered as discussed with her. Her symptoms are associated with unintended weight loss of 12 pounds in the last 4 weeks. She has been having recurrent headaches, but otherwise no other meningeal signs to indicate FUR STORAGE CLERK infection at this time. No focal normalities. Status: Acute (2) Persistent pneumonia: Continue Levaquin. As above. Monitor oxygenation. He did not respond to courses of doxycycline, Augmentin, azithromycin. Status: Acute (3) Diabetes: Consistent carbohydrate diet. Hold metformin. Mild insulin sliding scale. 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 If no new developments, tentative discharge tomorrow. Coding Level of Care Code Acute Batting Machine Operator for [facility] Diagnoses Malaise and fatigue R53.81; R53.83 Persistent pneumonia J18.9 Diabetes E11.9 Diabetes mellitus prison insulin use: unspecified terminal computer operator insulin use status Diabetes mellitus type: type 2
[2020-05-13 21:39] LABS: Glucose Point of Care 286 mg/dL (70-110)
[2020-05-14] VITALS (8 sets, daily range): BP systolic 126–145; BP diastolic 74–82; PULSE 73–89; RESP 16–18; TEMP 36.3–38.3; O2SAT 92–95; BMI 40.1
[2020-05-14] MEDS: sodium chloride 0.9% 1,000 ML 150 ML IV ×4 (02:35→19:53)
[2020-05-14 04:37] LABS: Adenovirus Not Detected (Not Detected); Human Metapneumovirus Not Detected (Not Detected); Human Parainflu Virus 1 Not Detected (Not Detected); Human Parainflu Virus 2 Not Detected (Not Detected); Human Parainflu Virus 3 Not Detected (Not Detected); Human Rsv A Not Detected (Not Detected); Influenza A Not Detected (Not Detected); Influenza B Not Detected (Not Detected); Rhinovirus/Enterovirus Not Detected (Not Detected)
[2020-05-14 05:07] LABS: Basophils % 0.4 %; Eosinophils # 0.1 10^3/uL (0.0-0.8); Eosinophils % 1.5 %; Hematocrit 35.6 % (37.0-47.0); Hemoglobin 10.9 g/dL (11.5-15.3); Lymphocytes # 2.4 10^3/uL (0.8-4.8); Lymphocytes % 32.3 %; Mean Corpuscular HGB Conc 30.6 g/dL (30.0-36.0); Mean Corpuscular Hemoglobin 29.5 pg (28.0-34.0); Mean Corpuscular Volume 96.2 fL (81-99); Monocytes % 13.3 %; Nucleated Red Blood Cells % 0 %; Platelet Count 360 10^3/cmm (130-400); Red Cell Distribution Width 12.3 % (12.1-15.1); White Blood Count 7.5 10^3/uL (4.0-10.0)
[2020-05-14 05:56] LABS: Alanine Aminotransferase 9 U/L (0-33); Albumin Level 2.5 g/dL (3.5-5.2); Alkaline Phosphatase 39 IU/L (35-105); Anion Gap 13.8 (5-19); Aspartate Amino Transferase 15 U/L (0-32); Blood Urea Nitrogen 5 mg/dL (6-20); Calcium 7.7 mg/dL (8.5-10.5); Carbon Dioxide 22 mmol/L (22-29); Chloride 105 mmol/L (98-107); Globulin 4.3 g/dL (1.3-4.6); Glomerular Filtration Rate 127.6 mL/min (90-130); Glucose 235 mg/dL (65-115); Osmolality Calculated 287 mOsm/kg (285-295); Potassium 3.8 mmol/L (3.5-5.1); Sodium 137 mmol/L (136-145); Total Bilirubin 0.4 mg/dL (0.15-1.2); Total Protein 6.8 g/dL (6.6-8.7)
[2020-05-14] MEDS: enoxaparin 40 mg/0.4 mL Syringe SUBCUT (06:35)
[2020-05-14] MEDS: acetaminophen 325 mg Tablet 650 MG PO (06:40)
[2020-05-14] MEDS: doxycycline 100 MG in sodium chloride 0.9% (plus) 100 ML IV ×2 (08:23→19:53)
[2020-05-14] MEDS: polyethylene glycol 3350 Pkt 17 gm PO (08:24)
[2020-05-14] MEDS: citalopram 20 mg Tablet 40 MG PO (08:25)
[2020-05-14 08:29] LABS: Glucose Point of Care 245 mg/dL (70-110)
--- NOTE | 2020-05-14 09:40 | PC.RESP ---
PATIENT DOES NOT HAVE A QUALIFYING HX OF LUNG DISEASE AND DOES NOT QUALIFY FOR PULMONARY REHAB AT THIS TIME.
[2020-05-14 11:41] LABS: Glucose Point of Care 260 mg/dL (70-110)
[2020-05-14 17:18] LABS: Glucose Point of Care 247 mg/dL (70-110)
[2020-05-14] MEDS: levofloxacin-dextrose 5 % 750 MG/150 ML PREMIX 100 MG IV (17:39)
[2020-05-14 19:59] LABS: Glucose Point of Care 285 mg/dL (70-110)
--- NOTE | 2020-05-14 21:29 | PM.PN ---
Subjective Subjective: Interval history: She subjectively is still feeling better. She is agreeable to stay for additional day due to finding of gram-positive jake in sputum to modify antibiotic regimen, and get seen by pulmonology tomorrow. Denies any chest pain, pressure, any headache, dizziness, any nausea, vomiting, diarrhea, or rash. Vitals/I&O/Wt Last Vital Signs Temp 99.2 F 05/14/20 19:55 Pulse 89 05/14/20 19:55 Resp 18 05/14/20 19:55 BP 128/76 05/14/20 19:55 Pulse Ox 94 05/14/20 19:55 05/14/20 05/14/20 05/14/20 06:59 14:59 22:59 Intake Total 1480 / 5135 2200.0 / 2200.0 1050.0 / 3250.0 Output Total 1400 / 4650 950 / 950 400 / 1350 Balance 80 / 485 1250.0 / 1250.0 650.0 / 1900.0 Weight last 48 hrs Weight 123.332 kg Weight 120.202 kg Physical Exam Const: COMMON NORMALS: no acute distress and patient oriented x3 HENMT: COMMON NORMALS: oropharynx normal Neck/C-Spine: COMMON NORMALS: no JVD Resp: COMMON NORMALS: normal respiratory effort and clear to auscultation bilaterally AUSCULTATION: clear to auscultation bilaterally Cardio: COMMON NORMALS: no JVD, regular rhythm, S1 normal heart sound present, S2 normal heart sound present and No murmurs present (Cardio) RHYTHM: regular rhythm HEART SOUNDS: S1 normal heart sound present and S2 normal heart sound present GI: COMMON NORMALS: Normal to inspection, nondistended, normoactive bowel sounds present, Soft to palpation and non-tender PALPATION: Yes Soft to palpation Extremity: COMMON NORMALS: no joint enlargement and no pedal edema Neuro: COMMON NORMALS: patient oriented x3 and moves all extremities Skin: COMMON NORMALS: no rashes or lesions noted GENERAL SKIN EXAM: no rashes or lesions noted Data : 05/14/20 04:50 05/14/20 04:50 Micro: Microbiology 05/13/20 12:50 Mycobacterial Smear - Preliminary Sputum - Expectorated Sputum 05/13/20 06:30 Mycobacterial Smear - Preliminary Sputum - Expectorated Sputum 05/12/20 01:20 Sputum Culture - Preliminary Sputum - Expectorated Sputum Gram positive jake A&P Assessment and plan (1) Malaise and fatigue: Subjectively she is feeling well. Again fever up to 100.9 with an episode this morning. Discussed with her, as well as her and [id number]. Preparations have been made for discharge and follow-up with pulmonology in office since she has been stable. However, gram-positive rods are noted in sputum culture this morning. Discussed with pulmonology. They are agreeable to see her in the hospital. For now recommend addition of penicillin. Per discussion with micro this may be suspicious for nocardia, possibly actinomyces, although needs definitive identification. For now we will keep Levaquin for possible nocardia, doxycycline is for now continues with history of positive tick panel. Her [id number] will also get some professional assessment of their house as it appears they live in a house that is built into a hill, and so he is like a basement environment. They are having to run humidifier all the time. She states will perform deep cleaning on everything, disinfect humidifier, and also involved professional assessment to exclude mold in the germain, or other contaminants. AFB sputum cultures collected. Low-grade fever today 99.9. She does report overall has been feeling better. We repeated CTA, and discussed results with her. No PE is noted. She is noted to have persistent areas of groundglass opacities. Groundglass positives appear somewhat focal, and so at this time cannot exclude infection. Continue empirically treating as she appears to be improving. We discussed again that there may be possibility of underlying bacterial pneumonia which currently is responding to Levaquin as she is feeling better and showing clinical improvement. But cannot exclude other possibilities of a viral, fungal or other pulmonary infection. We are still also working on additional assessment for possible autoimmune causes. Pulmonology may consider additional evaluation if she is not improving, possibly with bronchoscopy with additional samples, both for culture, evaluation for eosinophils, etc. Family understand that in case of any deterioration or change or concerning symptoms to seek immediate medical attention in ER. Coronavirus testing has been negative, including PCR. Rapid influenza negative. Viral panel negative. Other tests are pending. NOLAN screen has come back negative. Leukocytosis is improved down to normal. Tachycardia resolved. Sepsis suspected on presentation with leukocytosis of 13.7, tachycardia with heart rate of 99, appears to be resolving. Since she appears to be improving With current treatment, for now we will continue with Levaquin. If continues to improve, and remains stable, consideration may be given to follow-up with pulmonology on outpatient side. Continue collection of ordered cultures. Discussed with her possible etiologies, including infectious, inflammatory including autoimmune or allergic. On admission 4 weeks of malaise, chills, subjective fevers, muscle aches, headaches, cough productive of clear sputum. Underwent treatment preadmission with a course of doxycycline for possibility of tickborne illness, testing positive for RMSF, ehrlichiosis, although denies having any rash. Took a 10-day course of doxycycline and did not note any improvement. These conditions are not commonly associated with pulmonary symptoms, although it is not impossible. For now empirically will resume doxycycline, although this appears less likely, RMSF also given she has had no rash at all. No response to Augmentin and azithromycin. Possibility of persistent pneumonia with groundglass opacities noted on CT. Discussed with her possibility of persistent pneumonia She is agreeable, if we are not finding a cause for her symptoms, to also see a language teacher as other etiologies may also need to be considered. Night events eosinophils elevated, however, she does have history of recurrent allergic rhinitis, conjunctivitis, with reported allergies to multiple things including grass. Hypersensitivity pneumonitis may need to be considered. She has cats and dogs, although they are outdoor pets. If no improvement, no additional obvious cause, additional ILD's may need to be considered as discussed with her. Her symptoms are associated with unintended weight loss of 12 pounds in the last 4 weeks. She has been having recurrent headaches, but otherwise no other meningeal signs to indicate [employer] infection at this time. No focal normalities. Status: Acute (2) Persistent pneumonia: Continue Levaquin. As above. Monitor oxygenation. She did not respond to courses of doxycycline, Augmentin, azithromycin. Status: Acute (3) Diabetes: Consistent carbohydrate diet. Hold metformin. Mild insulin sliding scale. Status: Acute Qualifiers: Diabetes mellitus fci insulin use: unspecified fci insulin use status Diabetes mellitus type: type 2 Attestations Medical Necessity Statement*: Continue admission for additional assessment and management of persistent pneumonia not responsive to outpatient treatment, with gram-positive jake growing in sputum, with immunocompromise due to diabetes. Coding Level of Care Code Acute Clinical Rehabilitation Liaison for Daisy Fwjeremias Diagnoses Malaise and fatigue R53.81; R53.83 Persistent pneumonia J18.9 Diabetes E11.9 Diabetes mellitus fci insulin use: unspecified intermediate accountant insulin use status Diabetes mellitus type: type 2
[2020-05-15] VITALS: BP 129/73; PULSE 86; RESP 16; TEMP 37.3; O2SAT 93
[2020-05-15 04:00] VITALS: BP 136/76; PULSE 78; RESP 16; TEMP 37.3; O2SAT 93
[2020-05-15 04:30] LABS: Basophils % 0.4 %; Eosinophils # 0.1 10^3/uL (0.0-0.8); Eosinophils % 1.2 %; Hematocrit 33.5 % (37.0-47.0); Hemoglobin 10.5 g/dL (11.5-15.3); Lymphocytes # 3.1 10^3/uL (0.8-4.8); Lymphocytes % 34.5 %; Mean Corpuscular HGB Conc 31.3 g/dL (30.0-36.0); Mean Corpuscular Hemoglobin 29.6 pg (28.0-34.0); Mean Corpuscular Volume 94.4 fL (81-99); Monocytes # 1.2 10^3/uL (0.2-0.9); Monocytes % 13.1 %; Neutrophils # 4.44 10^3/uL (1.8-7.7); Neutrophils % 49.7 %; Nucleated Red Blood Cells % 0 %; Platelet Count 420 10^3/cmm (130-400); Red Blood Count 3.55 10^6/uL (4.1-5.3); Red Cell Distribution Width 12.2 % (12.1-15.1); White Blood Count 8.9 10^3/uL (4.0-10.0)
[2020-05-15 04:50] LABS: Alanine Aminotransferase 10 U/L (0-33); Albumin Level 2.7 g/dL (3.5-5.2); Alkaline Phosphatase 45 IU/L (35-105); Anion Gap 9.8 (5-19); Aspartate Amino Transferase 16 U/L (0-32); Blood Urea Nitrogen 4 mg/dL (6-20); Calcium 8.2 mg/dL (8.5-10.5); Carbon Dioxide 27 mmol/L (22-29); Chloride 103 mmol/L (98-107); Globulin 4.1 g/dL (1.3-4.6); Glomerular Filtration Rate 103.4 mL/min (90-130); Glucose 216 mg/dL (65-115); Osmolality Calculated 284 mOsm/kg (285-295); Potassium 3.8 mmol/L (3.5-5.1); Sodium 136 mmol/L (136-145); Total Bilirubin 0.4 mg/dL (0.15-1.2); Total Protein 6.8 g/dL (6.6-8.7)
[2020-05-15] MEDS: enoxaparin 40 mg/0.4 mL Syringe SUBCUT (05:40)
[2020-05-15] MEDS: sodium chloride 0.9% 1,000 ML 150 ML IV (05:40)
[2020-05-15 06:00] VITALS: BMI 40.1
[2020-05-15 07:14] LABS: Glucose Point of Care 239 mg/dL (70-110)
[2020-05-15] MEDS: doxycycline 100 MG in sodium chloride 0.9% (plus) 100 ML IV (07:58)
[2020-05-15] MEDS: citalopram 20 mg Tablet 40 MG PO (07:58)
[2020-05-15] MEDS: polyethylene glycol 3350 Pkt 17 gm PO (07:59)
[2020-05-15 08:00] VITALS: BP 126/77; PULSE 80; RESP 18; TEMP 37.2; O2SAT 94
[2020-05-15 09:12] VITALS: PULSE 95; RESP 18; O2SAT 92; O2SAT 93
--- NOTE | 2020-05-15 09:37 | P.CONIM_ITS ---
Providers/Reason For Consult Consulting Physican/Specialty*: Dr. Cerda Datar/Pulmonary Reason for Consult*: Pneumonia Attending Physician: Willi Bills Primary Care Provider: Chacha Whitmore History of Present Illness History of Present Illness Angela Estrada is a 54 year old lady with 4 week history of malaise, sweats, subjective fever, headaches, 12 lb weight loss, with symptoms not improving despite several courses of antibiotics. 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 She notes did not have any improvement despite this. She is also been undergoing now second day of Augmentin and azithromycin treatment. She reports mild intermittent cough productive of just clear sputum. Denies any chest pain or pressure. No hemoptysis. Has had loss of appetite as nothing tastes good. Denies any abdominal pain or diarrhea. She lives at home with her who has not had any illness at any time recently. She has been tested for COVID-19 by rapid antibody test at PCPs office which was negative. She denies history of VTE. Denies history of any autoimmune condition. Denies seeing any rashes. She does have cats and dogs at home which are outdoor pets. Denies keeping other pets. She has seasonal allergies, and takes Zyrtec year-round due to different allergies. She denies any prior history of TB. Has had skin test before which were negative, although has not had one in a while. Denies any exposure to ill persons. Denies any incarceration or homelessness. On admission CT chest ruled out PE but showed diffuse GGO's. She was tested for COVID 4 times and was negative. sputum cultures are growing gram-positive rods and patient is covered with Levaquin since 05/10/2020. Pulmonary consultation called for pneumonia Review of Systems General: Reports: 10 or more systems reviewed and unremarkable except in HPI and below Meds/Allergies Home Medications and Allergies Home Medications Medication Instructions Recorded Confirmed Last Taken Type PNV cmb#95-ferrous fumarate-FA 1 tab PO DAILY 05/10/20 05/10/20 Unknown History [] Vitamin C 1 tab PO DAILY PRN 05/10/20 05/10/20 Unknown History alendronate 70 mg PO Q7D 05/10/20 05/10/20 Unknown History amoxicillin-pot clavulanate 2 tab PO BID 05/10/20 05/10/20 05/09/20 History gsgwjds-jboilwjjmpsca-wrqeoont 1 tab PO PRN 05/10/20 05/10/20 Unknown History [Excedrin Migraine] azithromycin See Rx Instructions .ROUTE .COMPLEX 05/10/20 05/10/20 05/09/20 History calcium carbonate-vitamin D3 1 tab PO DAILY 05/10/20 05/10/20 Unknown History [Calcium 500 + D] cetirizine [Zyrtec] 10 mg PO DAILY PRN 05/10/20 05/10/20 Unknown History citalopram 40 mg PO DAILY 05/10/20 05/10/20 05/09/20 History glyburide 5 mg PO DAILY 05/10/20 05/10/20 05/09/20 History ibuprofen 600 mg PO PRN 05/10/20 05/10/20 Unknown History metformin 1,000 mg PO BID 05/10/20 05/10/20 05/09/20 History trazodone 50 mg PO BEDTIME PRN 05/10/20 05/10/20 05/09/20 History Allergies Allergy/AdvReac Type Severity Reaction Status Date / Time No Known Allergies Allergy Verified 05/10/20 11:24 Current Medications Current Medications Generic Name Dose Route Start Last Admin Trade Name Freq PRN Reason Stop Dose Admin Acetaminophen 650 mg 05/10/20 16:18 05/14/20 06:40 Tylenol PO 650 mg Q6H PRN Administration Mild/Mod Pain Or Temp >/= 101 Cetirizine HCl 10 mg 05/10/20 16:17 05/13/20 08:43 Zyrtec PO 10 mg DAILY PRN Administration Allergy Symptoms Citalopram Hydrobromide 40 mg 05/11/20 09:00 05/15/20 07:58 Celexa PO 40 mg DAILY HIRO Administration Enoxaparin Sodium 40 mg 05/13/20 06:00 05/15/20 05:40 Lovenox SUBCUT 40 mg Q24H HIRO Administration Sodium Chloride 1,000 mls @ 150 mls/hr 05/10/20 11:30 05/15/20 05:40 Sodium Chloride 0.9% IV 150 mls/hr .Q6H40M HIRO Administration Levofloxacin/Dextrose 750 mg in 150 mls @ 100 mls/hr 05/10/20 16:45 05/14/20 17:39 Levaquin-D5w IV 100 mls/hr Q24H HIRO Administration Protocol Doxycycline Hyclate 100 mg/ 100 mls @ 100 mls/hr 05/10/20 18:00 05/15/20 07 :58 Sodium Chloride IV 100 mls/hr Q12H HIRO Administration Protocol Penicillin G Potassium 2,500, 100 mls @ 100 mls/hr 05/14/20 14:00 05/15/20 04:07 000 unit/ Sodium Chloride IV 100 mls/hr Q6H HIRO Administration Insulin Aspart 0 unit 05/10/20 18:00 05/15/20 07:59 Novolog SUBCUT 6 unit WM&BEDTIME HIRO Administration Protocol Polyethylene Glycol 17 gm 05/12/20 09:45 05/15/20 07:59 Miralax PO 17 gm BID HIRO Administration Sodium Chloride 4 ml 05/12/20 14:00 05/13/20 06:12 Hyper-Chapo INHALATION 4 ml Q8H HIRO Administration PFSH Acute PFSH: Medical History Diabetes Surgical History H/O: hysterectomy Hx of cholecystectomy Family History Other Healthy adult No significant family history Social History Smoking and tobacco status: never smoked Alcohol intake: never Substance/Drug Use: never Household members: spouse Marital status: Vitals/I&O/Wt Last Vital Signs Temp 99.0 F 05/15/20 08:00 Pulse 95 05/15/20 09:12 Resp 18 05/15/20 09:12 BP 126/77 05/15/20 08:00 Pulse Ox 92 05/15/20 09:12 05/14/20 05/15/20 05/15/20 22:59 06:59 14:59 Intake Total 1610.0 / 3910.0 2500 / 6410.0 360 / 360 Output Total 1300 / 2250 1600 / 3850 Balance 310.0 / 1660.0 900 / 2560.0 360 / 360 Weight last 48 hrs Weight 271 lb 14.4 oz Weight 271 lb 14.4 oz Physical Exam Narrative: EXAM NARRATIVE: General: alert, NAD HEENT: conj clear, EOMI, PERRL, mmm, Neck: supple, no meningismus Heme: no cervical LAP Pulmonary: CTAB, no wheezing, rhonchi, crackles Cardiovascular: rrr, nl s1s2, no mrg Abdomen: soft, nt, nd, no r/g, bs+ Extremities: pulses +, no edema, no c/c : no CVA tenderness Skin: intact, no rash MSK: no back or neck pain Neurologic: grossly intact Data Micro: Micro: Microbiology 05/13/20 12:50 Mycobacterial Smea r - Preliminary Sputum - Expector ated Sputum 05/13/20 06:30 Mycobacterial Smea r - Preliminary Sputum - Expector ated Sputum 05/12/20 01:20 Sputum Culture - P reliminary Sputum - Expector ated Sputum Gram positive r od A&P Assessment and plan (1) Persistent pneumonia: Status: Acute #Pneumonia #Recently treated [address] chest 05/12/2020-ruled out PE but showed persistent slight hazy groundglass infiltrates in mid and lower lungs compared to CT 05/06/2020 Patient on Levaquin/and doxy since 05/10/2020 COVID-19 tested for times negative Viral panel negative-preliminary AFB smears negative-discontinue contact/isolation precautions Sputum stains shows gram-positive rods-moderate branching-final organism identification and antibiotic sensitivity is pending Patient is clinically stable and saturating 94% on room air Can switch to Levaquin p.o. and continue for 4 more days After discharge will follow-up in clinic Medical condition, labs, investigations, medications, counseling regarding medication compliance, side effects, importance of follow-up appointments, smoking-its adverse effects and importance of cessation and plan of care- everything explained in detail to the patient. Patient verbalized understanding and agreed with the plan of care. Recommendations conveyed to Dr. Gilliam hospitalist Consult Attestations Medical Necessity Statement: Pneumonia Time Spent in Patient Care: 16 - 35 minutes (>than 50% of time spent in counselling and/or direct pt care on unit) . 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
[2020-05-15 11:32] LABS: Glucose Point of Care 74 mg/dL (70-110)
[2020-05-15 11:32] LABS: Glucose Point of Care 263 mg/dL (70-110)
[2020-05-15 11:56] VITALS: BP 136/77; PULSE 85; RESP 20; TEMP 37.4; O2SAT 92
--- NOTE | 2020-05-15 13:47 | P.DS_ITS ---
Discharge Providers Date of Admission: 05/10/20 13:56 Date of Discharge: May 15, 2020 Attending Provider at Admission: Willi Bills Attending Provider at Discharge: Willi Bills Primary Care Provider: Chacha Whitmore Diagnoses at Discharge Discharge Diagnosis (1) Persistent pneumonia: Status: Acute Reason for Visit Reason for Visit: SOB Hospital Course Hospital Course: This pleasant 54-year-old lady with history of diabetes, as well as non-resolving symptoms of malaise, sweats, chills, muscle aches, cough, low-grade fevers as well as 12 pound weight loss for about a month, for which she was treated with several courses of antibiotics, for pneumonia, and with a course of doxycycline after tick panel came back positive for RMSF and ehrlichiosis. Subsequently treated with Augmentin and azithromycin. Her symptoms still did not resolve. She was tested for coronavirus by PCP, and testing was repeated here with rapid antigen and PCR, both negative. She denied history of any autoimmune condition. Denied any rash. Does have cats and dogs which are outdoor pets. No other pets. Has seasonal allergies and takes Zyrtec year-round due to different allergies. Does report that they run a [employer]'s at home pretty much all the time as the house is built into a hill and so is like a semi-basement. Has had no risk factors of tuberculosis. On presentation noted to be with possible sepsis, with leukocytosis of 13.7, sinus tachycardia of 99. In the hospital she was restarted on doxycycline, and treated with Levaquin for possible bacterial pneumonia. She was initially treated empirically with anticoagulation due to possibility of PE, although additional assessment by CTA did not reveal PE, and therapeutic dose anticoagulation was discontinued. Leukocytosis on presentation of 13.7 had resolved. Subjectively she reported feeling better. Her vital signs remained stable. Blood cultures were unrevealing. Urine bacterial antigens negative. Sputum culture initially was not growing anything, but subsequently is showing gram-positive rods. Moderate. Due to concern for possible nocardia, or actinomyces she is maintained on empiric antibiotics, and was evaluated in the hospital by pulmonology. She will follow-up with them in office, and is also referred to follow-up with infectious disease specialist. Other considerations of her condition with persistent groundglass opacities noted on CT included possible other infections, with AFBs collected to exclude TB, although initial smears are negative. Galactomannan and B-D glucan were requested. As well as fungal cultures. More extensive viral panel was sent out and was negative. Mycoplasma and Ureaplasma PCR was requested. Sputum was also collected for pneumocystis PCR. Autoimmune conditions were considered as well, although NOLAN has been negative. ANCA has been sent out and pending. Additional consideration was given to possibly hypersensitivity pneumonitis, although distribution of opacities on CT did not fit the pattern per discussion with senior production supervisor. Hypersensitivity to molds could have been considered as well as discussed with her and daughter given the construction of their house. Recommendation was given to check for mold in the germain, as well as make sure to disinfect the humidifiers. Given she is continued to do well, did not require any oxygen, although continues spiking low-grade temperatures up to about 100.9, she is preferred to return home and follow-up in outpatient setting with the specialists. She was urged to return to the hospital in case there was any change in her symptoms, and verbalized understanding and agreement. Physical Exam Const: COMMON NORMALS: no acute distress and patient oriented x3 HENMT: COMMON NORMALS: oropharynx normal Neck/C-Spine: COMMON NORMALS: no JVD Resp: COMMON NORMALS: normal respiratory effort and clear to auscultation bilaterally AUSCULTATION: clear to auscultation bilaterally Cardio: COMMON NORMALS: no JVD, regular rhythm, S1 normal heart sound present, S2 normal heart sound present and No murmurs present (Cardio) RHYTHM: regular rhythm HEART SOUNDS: S1 normal heart sound present and S2 normal heart sound present GI: COMMON NORMALS: Normal to inspection, nondistended, normoactive bowel sounds present, Soft to palpation and non-tender PALPATION: Yes Soft to palpation Extremity: COMMON NORMALS: no joint enlargement and no pedal edema Neuro: COMMON NORMALS: patient oriented x3 and moves all extremities Skin: COMMON NORMALS: no rashes or lesions noted GENERAL SKIN EXAM: no rashes or lesions noted Discharge Data Data Completed and Pending: Completed Studies During Hospitalization Category Date Time Status CT angio chest PE protcl 85910 Rout ine Cat Scan 05/12/20 13:34 Completed XR chest 1V sofie ble [id number] Stat Exams 05/10/20 11:24 Completed Pending at discharge Category Date Time Status Anti-Neutrophil C utoplasmic AB Rout ine Lab 05/10/20 05:17 Received Complete Blood Co unt w/Auto AM LABS Lab 05/16/20 04:00 Ordered Comprehensive Met abolic Panel AM LA BS Lab 05/16/20 04:00 Ordered Miscellaneous Effie t Routine Lab 05/10/20 16:25 Received Miscellaneous Effie t Routine Lab 05/10/20 16:28 Received Miscellaneous Effie t Routine Lab 05/10/20 16:30 Received Miscellaneous Effie t Routine Lab 05/10/20 18:54 Received Miscellaneous Effie t Routine Lab 05/10/20 18:54 Received Mycobacteria, Cul ture w/Fluor Routi ne Lab 05/13/20 06:30 Results Mycobacteria, Cul ture w/Fluor Routi ne Lab 05/13/20 12:50 Results Mycoplasma/Ureapl asma Panel Routine Lab 05/10/20 16:31 Received Pneumocystis jiro vecii, QT PCR Rout ine Lab 05/10/20 16:32 Received Sputum Culture Ro utine Lab 05/12/20 01:[address] at Lab 05/11/20 09:05 Results Labs from last 24 hours 05/15/20 05/15/20 05/15/20 11:23 11:19 07:11 WBC RBC Hgb Hct MCV MCH MCHC RDW Plt Count MPV Neut % (Auto) Lymph % (Auto) Randall % (Auto) Eos % (Auto) Baso % (Auto) Neut # (Auto) Lymph # (Auto) Randall # (Auto) Eos # (Auto) Baso # (Auto) Nucleated RBC % (a uto) Nucleated RBCs # Sodium Potassium Chloride Carbon Dioxide Anion Gap BUN Creatinine GFR Calculation Glucose POC Glucose 74 263 239 Calculated Osmolal ity Calcium Total Bilirubin AST ALT Alkaline Phosphata se Total Protein Albumin Globulin 05/15/20 05/15/20 05/14/20 04:16 04:16 19:47 WBC 8.9 RBC 3.55 L Hgb 10.5 L Hct 33.5 L MCV 94.4 MCH 29.6 MCHC 31.3 RDW 12.2 Plt Count 420 H MPV 10.0 Neut % (Auto) 49.7 Lymph % (Auto) 34.5 Randall % (Auto) 13.1 Eos % (Auto) 1.2 Baso % (Auto) 0.4 Neut # (Auto) 4.44 Lymph # (Auto) 3.1 Randall # (Auto) 1.2 H Eos # (Auto) 0.1 Baso # (Auto) 0.0 Nucleated RBC % (a uto) 0 Nucleated RBCs # 0.0 Sodium 136 Potassium 3.8 Chloride 103 Carbon Dioxide 27 Anion Gap 9.8 BUN 4 L Creatinine 0.6 GFR Calculation 103.4 Glucose 216 H POC Glucose 285 Calculated Osmolal ity 284 L Calcium 8.2 L Total Bilirubin 0.4 AST 16 ALT 10 Alkaline Phosphata se 45 Total Protein 6.8 Albumin 2.7 L Globulin 4.1 05/14/20 16:49 WBC RBC Hgb Hct MCV MCH MCHC RDW Plt Count MPV Neut % (Auto) Lymph % (Auto) Randall % (Auto) Eos % (Auto) Baso % (Auto) Neut # (Auto) Lymph # (Auto) Randall # (Auto) Eos # (Auto) Baso # (Auto) Nucleated RBC % (a uto) Nucleated RBCs # Sodium Potassium Chloride Carbon Dioxide Anion Gap BUN Creatinine GFR Calculation Glucose POC Glucose 247 Calculated Osmolal ity Calcium Total Bilirubin AST ALT Alkaline Phosphata se Total Protein Albumin Globulin Vitals: Last Vital Signs Temp 99.3 F 05/15/20 11:56 Pulse 85 05/15/20 11:56 Resp 20 H 05/15/20 11:56 BP 136/77 05/15/20 11:56 Pulse Ox 92 05/15/20 11:56 Discharge Plan Discharge Patient Disposition: Home Condition: Stable Prescriptions: New doxycycline hyclate 100 mg capsule 100 mg PO BID 14 Days Qty: 28 RF: 0 Levaquin 750 mg tablet 750 mg PO DAILY 10 Days RF: 0 Continued citalopram 40 mg tablet 40 mg PO DAILY RF: 0 trazodone 50 mg tablet 50 mg PO BEDTIME PRN (Reason: Sleep) RF: 0 Zyrtec 10 mg Tablet 10 mg PO DAILY PRN (Reason: Allergy Symptoms) RF: 0 glyburide 5 mg tablet 5 mg PO DAILY RF: 0 alendronate 70 mg tablet 70 mg PO Q7D RF: 0 metformin 1,000 mg tablet 1,000 mg PO BID RF: 0 Excedrin Migraine 250-250-65 mg Tablet 1 tab PO PRN RF: 0 Calcium 500 + D 500 mg(1,250mg) -200 unit Tablet 1 tab PO DAILY RF: 0 28 mg iron- 800 mcg Tablet 1 tab PO DAILY RF: 0 Vitamin C 1 tab PO DAILY PRN (Reason: unknown) RF: 0 Discontinued azithromycin 250 mg tablet See Rx Instructions .ROUTE .COMPLEX RF: 0 ibuprofen 200 mg Tablet 600 mg PO PRN RF: 0 amoxicillin-pot clavulanate 500-125 mg tablet 2 tab PO BID RF: 0 Discharge Orders: Discharge Order (Routine); Ordered 05/15/20 Ordered By: Willi Bills Referrals: Prashant Weiner MD [Physician] - 4-7 days (Please call patient at home with a hospital follow up appointment in 4-7 days. Faxed information to clinic) Viral Ma MD [Physician] - (Persistant PNA and low grade fevers. Please call patient at home with a follow up appointment with Dr. Gould. Faxed information to clinic) Chacha Whitmore PA [Primary Care Provider] - 4-7 days (Please call patient at home with a follow up appointment from the hosptial in 4-7 days. Faxed information to clinic) Discharge Diet: Diabetic Discharge Activity: Increase activity as tolerated Patient Instructions: Doxycycline (By mouth), Levofloxacin (By mouth), Viral Pneumonia (DC) Activity Restrictions/Additional Instructions: Please make sure to follow-up with senior production supervisor in office. Follow-up with infectious disease Dr. Gould at next available appointment. You are for now prescribed 2 antibiotics. You are continued on doxycycline for now until this may be changed by 1 of the following up physicians. He also given prescription for Levaquin, for now only for 10 days, but this may be changed or extended by the specialist physicians after your visit in office. Please proceed to ER in case there is any change for worsening your symptoms, or any other worrisome symptoms. Do not wait for the appointments if there is any concern. Please continue monitoring her glucose, write down values to follow-up with your primary care doctor to optimize control of your diabetes. Discharge Date/Time: 05/15/20 15:00 Discharge Attestations Time Spent in Discharge Care*: greater than 30 min Quality Metrics Clinical Quality Measures During this hospital stay, did patient experience: None Coding Level of Care Code Acute Rat Breeder for Chg Fwd Diagnoses Persistent pneumonia J18.9
[2020-05-15 13:57] VITALS: BP 136/77; PULSE 85; RESP 20; TEMP 37.4; O2SAT 92
[2020-05-16 21:22] LABS: ANCA Interp Negative (Negative)
--- NOTE | 2020-05-19 14:00 | PC.SOCIAL ---
[facility] has called to notify Dr Bills about a test that could not be performed. Pneumocystitis Jirovecii due to specimen type has not been validated for test requested. Sent Dr Bills copy of report and will await his response to see if further orders are needed.
--- NOTE | 2020-05-19 14:23 | PC.SOCIAL ---
Notified Chacha Le's nurse regarding the test previous mentioned on sputum not able to be performed. Pneumocystis Jirovecii. Faxed information to their office at [phone] with confirmation that fax was sent successfully. Updated patient as well and asked her to review any further questions with primary care provider. She verbalized understanding and indicates overall she is feeling better.
== END 2020-05-15 15:00 | disposition home or self-care (01) | DRG 871 ==
LOC: ER 13:59 → MEDSURG 14:16
PROVIDERS: Emergency Medicine; Admitting Provider Internal Medicine; PCP Physician Assistant; Visit Provider Internal Medicine
DX: A41.9 Sepsis, unspecified organism (principal); J18.9 Pneumonia, unspecified organism; E11.9 Type 2 diabetes mellitus without complications; R53.81 Other malaise; R53.83 Other fatigue; Z79.84 Long term (current) use of oral hypoglycemic drugs
CPT/HCPCS: 12345; 36415; 36416; 71045; 71275; 80053; 80500; 82728; 82962; 83516; 83605; 83615; 83880; 84145; 84443; 85025; 85378; 85384; 85610; 85651; 86038; 86140; 86403; 87015; 87040; 87070; 87077; 87116; 87206; 87305; 87385; 87426; 87449; 87635; 87799; 87801; 87804; 93005; 94640; 94664; 96372; 99283; J1650; J1815; J1956; J2540; J3490; J7030; Q9967

== ENCOUNTER 2020-05-26 13:11 | Outpatient (CLI) | payer SELFPAY ==
[2020-05-26 13:55] LABS: Basophils # 0.1 10^3/uL (0.0-0.1); Basophils % 0.5 %; Eosinophils # 0.1 10^3/uL (0.0-0.8); Eosinophils % 0.5 %; Hematocrit 40.9 % (37.0-47.0); Hemoglobin 13.2 g/dL (11.5-15.3); Lymphocytes # 6.1 10^3/uL (0.8-4.8); Mean Corpuscular HGB Conc 32.3 g/dL (30.0-36.0); Mean Corpuscular Hemoglobin 29.3 pg (28.0-34.0); Mean Corpuscular Volume 90.9 fL (81-99); Mean Platelet Volume 9.4 fL (7.4-10.4); Monocytes % 12.5 %; Neutrophils # 7.67 10^3/uL (1.8-7.7); Neutrophils % 47.6 %; Nucleated Red Blood Cells % 0 %; Platelet Count 719 10^3/cmm (130-400); Red Cell Distribution Width 12.5 % (12.1-15.1); White Blood Count 16.1 10^3/uL (4.0-10.0)
[2020-05-26 14:24] LABS: Free T4 Free Thyroxine 1.51 ng/dL (0.82-1.77); T3 Free 2.6 PG/ML (2.0-4.4); Thyroid Stimulating Hormone 2.07 uIU/mL (0.27-4.20)
[2020-05-26 14:34] LABS: Erythrocyte Sedimentation Rate 98 mm/hr (0-15)
[2020-05-26 14:46] LABS: Hepatitis A Antibody IgM Non-Reactive (Nonreactive); Hepatitis B Core AB, Total Non-Reactive (Nonreactive); Hepatitis B Surface AB 3.5 (0-8.5); Hepatitis B Surface Antigen Non-Reactive (Nonreactive); Hepatitis C Virus Antibody Non-Reactive (Nonreactive)
[2020-05-26 14:50] LABS: HIV 1 & 2 Antibody Non-Reactive (Non-Reactiv); HIV 1 & 2 Antigen Non-Reactive (Non-Reactiv)
[2020-05-27 14:03] LABS: CENTROMERE B ANTIBODY <1.0 NEG AI (<1.0 NEG); JO-1 ANTIBODY <1.0 NEG AI (<1.0 NEG); RNP ANTIBODY <1.0 NEG AI (<1.0 NEG); SCL-70 ANTIBODY <1.0 NEG AI (<1.0 NEG); SJOGREN'S ANTIBODY (SS-A) <1.0 NEG AI (<1.0 NEG); SM ANTIBODY <1.0 NEG AI (<1.0 NEG)
[2020-05-27 14:56] LABS: Immunoglobulin E 46 kU/L (<OR=114)
[2020-05-27 15:57] LABS: Lyme AB Screen <0.90 index
[2020-05-27 17:23] LABS: THYROID PEROXIDASE ANTIBODIES <1 IU/mL (<9)
[2020-05-28 12:07] LABS: ANA SCREEN, IFA POSITIVE (NEGATIVE); ANA TITER 1:40 titer
[2020-05-28 15:32] LABS: Quantiferon Mitogen 7.67 IU/mL; Quantiferon Nil 0.01 IU/mL; Quantiferon Plus TB1 0.01 IU/mL; Quantiferon Plus TB2 0.01 IU/mL; Quantiferon TB Gold NEGATIVE (NEGATIVE)
[2020-05-31 00:47] LABS: DNA AB (DS) CRITHIDIA,IFA NEGATIVE (NEGATIVE)
[2020-05-31 15:13] LABS: COMPLEMENT COMPONENT C3C 247 mg/dL (83-193); COMPLEMENT COMPONENT C4C 39 mg/dL (15-57)
[2020-06-01 16:16] LABS: RMSF IGG NOT DETECTED; RMSF IGM NOT DETECTED
[2020-06-01 17:12] LABS: E. Chaffeensis AB IGM <1:20; Interpretation PAST INFECTION
== END 2020-05-26 13:12 | disposition home or self-care (01) ==
LOC: LAB 13:14
PROVIDERS: Student in an Organized Health Care Education/Training Program; PCP Physician Assistant; Visit Provider Internal Medicine Pulmonary Disease
DX: J18.9 Pneumonia, unspecified organism (principal); R53.81 Other malaise; R53.83 Other fatigue
CPT/HCPCS: 36415; 82785; 84439; 84443; 84481; 85025; 85651; 86003; 86480; 86618; 86666; 86705; 86706; 86709; 86757; 86803; 87340; 87806

== ENCOUNTER 2020-06-07 12:29 | Outpatient (CLI) | payer SELFPAY ==
[2020-06-07 15:25] LABS: Basophils % 0.3 %; Eosinophils # 0.2 10^3/uL (0.0-0.8); Eosinophils % 1.4 %; Hematocrit 40.5 % (37.0-47.0); Hemoglobin 12.8 g/dL (11.5-15.3); Lymphocytes # 4.1 10^3/uL (0.8-4.8); Lymphocytes % 35.5 %; Mean Corpuscular HGB Conc 31.6 g/dL (30.0-36.0); Mean Corpuscular Hemoglobin 28.6 pg (28.0-34.0); Mean Corpuscular Volume 90.6 fL (81-99); Mean Platelet Volume 10.1 fL (7.4-10.4); Monocytes # 1.1 10^3/uL (0.2-0.9); Monocytes % 9.5 %; Neutrophils # 6.13 10^3/uL (1.8-7.7); Neutrophils % 52.7 %; Nucleated Red Blood Cells % 0 %; Platelet Count 528 10^3/cmm (130-400); Red Blood Count 4.47 10^6/uL (4.1-5.3); Red Cell Distribution Width 13.1 % (12.1-15.1); White Blood Count 11.6 10^3/uL (4.0-10.0)
[2020-06-07 15:46] LABS: LAB Peripheral Smear Sent for Review
[2020-06-07 16:10] LABS: Alanine Aminotransferase 14 U/L (0-33); Albumin Level 3.5 g/dL (3.5-5.2); Alkaline Phosphatase 50 IU/L (35-105); Anion Gap 18.3 (5-19); Aspartate Amino Transferase 24 U/L (0-32); Blood Urea Nitrogen 7 mg/dL (6-20); Carbon Dioxide 25 mmol/L (22-29); Chloride 97 mmol/L (98-107); Glomerular Filtration Rate 103.4 mL/min (90-130); Glucose 314 mg/dL (65-115); Lactate Dehydrogenase 154 U/L (135-214); Osmolality Calculated 292 mOsm/kg (285-295); Potassium 4.3 mmol/L (3.5-5.1); Sodium 136 mmol/L (136-145); Total Bilirubin 0.4 mg/dL (0.15-1.2); Total Protein 8.5 g/dL (6.6-8.7)
[2020-06-07 16:11] LABS: Erythrocyte Sedimentation Rate 96 mm/hr (0-15)
[2020-06-07 18:09] LABS: Immunoglobulin IGA 780 mg/dL (70-400); Immunoglobulin IGG 1504 mg/dL (700-1600); Immunoglobulin IGM 130 mg/dL (40-230)
--- NOTE | 2020-06-07 18:19 | ONC CON_ITS ---
Dr. Novoa New Patient Note Patient: Angela Estrada Unit #: [id number]: [id number] Dicatated By: Nishant Novoa M.D.Date of Visit: Jun 07, 2020 Onc MED New Patient/Consult Referring Physician: Prashant Weiner Chief Complaint: Anemia and thrombocytosis. History of Present Illness: This is a 54 year-old woman with anemia and thrombocytosis in association with an acute illness characterized by low-grade fever, weakness/fatigue, and drenching night sweats. She has type 2 diabetes, osteopenia, and depression, and she also has a history of nephrolithiasis. On 05/10/2020 she was admitted to the hospital after presenting to the emergency room with a 4-week history of cough, shortness of breath, low-grade fever, night sweating, nausea/dry heaves, myalgias, and fatigue. Her CBC showed borderline low hemoglobin at 12.0 g with white blood cell count elevated at 13,700 and platelet count elevated at 460,000. Her sed rate was markedly elevated at 103 mm/hour and her CRP was also significantly elevated at 246.6 mg/L, normal range up to 4.9. Comprehensive metabolic profile was unremarkable except for elevated blood sugar. Her CT chest, abdomen, and pelvis showed diffuse multilobar groundglass attenuation and interstitial thickening suggestive of possible viral pneumonia. There was moderate hepatomegaly with severe hepatic steatosis. There were no other acute findings. She had previously been given outpatient antibiotic therapy with doxycycline. Following admission she continued empiric antibiotic therapy with doxycycline and Levaquin. Her blood and urine cultures were negative and extensive serologic testing revealed no specific cause for the illness. She tested negative for COVID. A CT pulmonary angiogram on 05/12/2020 showed no evidence for pulmonary embolus. Slight hazy groundglass infiltrates in the mid and lower lung zones were noted to be unchanged. There was no mediastinal or hilar lymphadenopathy noted. At discharge she continued on antibiotic therapy with Levaquin and doxycycline but those were subsequently discontinued because of nausea/vomiting. Her outpatient laboratory studies on 05/26/2020 included CBC showing hemoglobin 13.2 g with white blood cell count elevated at 16,100 and platelet count elevated at 719,000. The differential included 47% neutrophils, 38% lymphocytes, and 12% monocytes. Sed rate remained elevated at 98 mm/hour. Her NOLAN screen was positive at 1:40, but the NOLAN profile was unrevealing. Since she has been home from the hospital she has been feeling a little better, to the extent that she is starting to get some strength back. However, she still has very limited activity. Her ECOG score is 3. She was having difficulty eating, as everything had a metal taste, but that is also getting better now. Her weight is down at least 20 pounds. She continues to have intermittent low-grade fever in the range of 99 to 100.5 degrees. She continues to have drenching night sweats. She still has shortness of breath, which does limit her activity. She also is still having cough. She has not had chest pain or hemoptysis. Her nausea has improved since she stopped the antibiotics. She is having some constipation, but bowel function has been adequate with MiraLAX. She has no complaints. She still sometimes feels achy, but it is not bad. She has no other joint or bone pain. She had been having some headaches, but lately those have been better. She had an episode of vertigo last week. She occasionally has lightheadedness. She has no focal neurologic symptoms. Past Medical History: Her medical history includes depression, history of nephrolithiasis, osteopenia, and type II diabetes. Past Surgical History: Her surgical/procedural history includes bilateral oophorectomy, section in 1986 and in 1988, cholecystectomy, hysterectomy, and lithotripsy for kidney stone. Medications: Albuterol Sulfate 2 Puff(s) (of 108 (90 base) mcg/act) Aerosol Powder, Breath Activated Inhalation q 6 hours PRN, Alendronate Sodium 1 Tablet (of 70 mg) Oral q 7 days, Citalopram Hydrobromide 1 Tablet (of 40 mg) Oral daily, glyBURIDE 1 Tablet (of 5 mg) Oral daily, metFORMIN HCl 1 Tablet (of 1000 mg) Oral b.i.d., traZODone HCl 1 Tablet (of 50 mg) Oral daily Allergies: No Known Allergies. Social History: Ms. Estrada is . She is a non-smoker. She does not drink alcohol. Family History: Her mother had diabetes and of heart disease at age 71. She does not know about her father. A twin sister has diabetes. Another sister and a brother in good health. Review Of Symptoms: Constitutional - She has very limited activity, but recently she has started getting a little strength back. Appetite has been poor, as everything has had a metal taste. She is eating better now, but her weight is down at least 20 pounds. She still has intermittent low-grade fever in the range of 99 to 100.5 degrees. She had chills at the initial onset of the illness, but that has resolved. She is still having drenching night sweats. ECOG score is 3, Eyes - She has had some decline in visual acuity, ENMT - No sinus congestion/drainage. No mouth sores. No sore throat or difficulty swallowing, Hematologic/Lymphatic - No abnormal bruising or bleeding, Respiratory - She has shortness of breath, which limits her activity and she still has cough. No pleuritic pain or hemoptysis, Cardiovascular - No angina pain. No palpitations, Gastrointestinal - She was having nausea/vomiting attributed to her medication, and that has now resolved. No heartburn or acid reflux. She has had some constipation, adequately managed with MiraLAX. No blood in the stool or black stools, Genitourinary (F) - No dysuria or hematuria. No urinary frequency. No urgency or incontinence, Musculoskeletal - Her joints are sometimes achy, not bad. No other joint or bone pain, Integumentary - No skin rash, Neurologic - She has had headaches, but lately they have been getting better. She had an episode of vertigo last week, and she has had occasional lightheadedness. No numbness or tingling. No other focal neurologic symptoms, Psychiatric - She has depression. She sometimes has difficulty sleeping. Vital Signs: Performed on Jun 07, 2020 13:39: 0, 33.88 (HIGH), 2.19 sq.m, 69.00 in, 95 % (LOW), 113 /min (HIGH), 24 /min, 10/78 mm(hg) (LOW), 98.4 F, and 229.4 lbs (HIGH). Physical Examination: Constitutional - She appears somewhat weak generally, Eyes - Sclerae nonicteric. Conjunctivae clear, ENMT - No lesions noted in the oral cavity, Neck - No mass or thyromegaly, Hematologic/Lymphatic - No cervical, clavicular, or axillary adenopathy, Respiratory - Lungs sound clear. She has good air movement bilaterally, Cardiovascular - Heart rhythm is regular with a mild tachycardia. There is no murmur, gallop, or rub noted, Abdomen - Soft and non-tender. Liver and spleen are not enlarged. There is no abdominal mass or ascites noted and there is no inguinal adenopathy, Back/Spine - No spine or CVA tenderness noted, Extremities - No edema. Dorsalis pedis pulses are palpable bilaterally, Integumentary - No rashes. No suspicious skin lesions noted, Neurologic - No focal neurologic deficits noted. Impression: 1. Patient with anemia and thrombocytosis in association with an acute illness characterized by low-grade fever, drenching night sweats, shortness of breath and cough, fatigue, and markedly elevated sed rate and CRP. Her initial chest CT was suggestive of possible viral pneumonia, but thus far a specific cause for the illness has not been determined. 2. There has been no evidence of underlying malignancy by CT scan, but with the symptoms and associated laboratory findings, I am concerned about the possibility of underlying hematologic malignancy. Her other medical illnesses include: 3. Type 2 diabetes. 4. Osteopenia. 5. Depression. 6. History of nephrolithiasis. Plan: The laboratory and CT findings were reviewed with the patient and her , and we discussed the clinical implications. She has significant symptomatology in association with very high sed rate and CRP levels, but as yet a specific cause for the illness has not been determined. At this point I would like to repeat the CBC and CMP along with sed rate and CRP level and also check her LDH level, serum protein electrophoresis, and serum free light chain assay. I will contact Dr. Gould when the results are available, and we will determine then whether to proceed with bone marrow aspiration/biopsy. Signed By: Nishant Novoa M.D. <<Signature on File>>
[2020-06-08 07:58] LABS: PROTEIN, TOTAL 7.7 g/dL (6.1-8.1)
[2020-06-08 15:42] LABS: ALBUMIN 3.3 g/dL (3.8-4.8); ALPHA 1 GLOBULIN 0.5 g/dL (0.2-0.3); ALPHA 2 GLOBULIN 1.1 g/dL (0.5-0.9); BETA 1 GLOBULIN 0.6 g/dL (0.4-0.6); BETA 2 GLOBULIN 0.7 g/dL (0.2-0.5); GAMMA GLOBULIN 1.6 g/dL (0.8-1.7); KAPPA LIGHT CHAIN, FREE, SERUM 42.3 mg/L (3.3-19.4); KAPPA/LAMBDA LIGHT CHAINS FREE 0.84 (0.26-1.65); LAMBDA LIGHT CHAIN, FREE, SERU 50.5 mg/L (5.7-26.3)
== END 2020-06-07 12:30 | disposition home or self-care (01) ==
PROVIDERS: PCP Physician Assistant; Visit Provider Internal Medicine Medical Oncology
DX: R79.89 Other specified abnormal findings of blood chemistry (principal); E11.9 Type 2 diabetes mellitus without complications; M85.80 Other specified disorders of bone density and structure, unspecified site; F32.9 Major depressive disorder, single episode, unspecified; N20.0 Calculus of kidney
CPT/HCPCS: 80053; 82784; 83615; 83883; 84155; 84165; 85025; 85651; 86141; 99205

== ENCOUNTER 2020-06-08 15:27 | Outpatient (CLI) | payer SELFPAY ==
[2020-06-09 12:27] LABS: EBV IGG TEST >750.00 U/mL; EBV IGM TEST <36.00 U/mL
== END 2020-06-08 15:28 | disposition home or self-care (01) ==
LOC: LAB 15:28
PROVIDERS: PCP Physician Assistant; Visit Provider Student in an Organized Health Care Education/Training Program
DX: R50.9 Fever, unspecified (principal)
CPT/HCPCS: 36415

== ENCOUNTER → 2020-06-26 11:32 | Outpatient (BNVA) | payer OTHER, SELFPAY | PROVIDERS: PCP Physician Assistant; Visit Provider Surgery | DX: Z11.59 Encounter for screening for other viral diseases (principal) | CPT/HCPCS: 87635 ==

== ENCOUNTER 2020-06-30 09:53 | Day surgery (SDC) | payer SELFPAY ==
[2020-06-29 12:55] VITALS: BMI 33.5
[2020-06-30 10:20] VITALS: BP 127/93; PULSE 110; RESP 18; TEMP 36.1; O2SAT 90
[2020-06-30] MEDS: sodium chloride 0.9% 1,000 ML 30 ML IV (10:28)
[2020-06-30 10:34] LABS: Glucose Point of Care 290 mg/dL (70-110)
--- NOTE | 2020-06-30 11:25 | ANES.PREANE2 ---
Pre-Anesthetic Assessment Pre-Anesthetic Assessment: Height/Weight: Height 1.75 m Weight 102.965 kg Temp Pulse Resp BP Pulse Ox 97 F L 110 H 18 127/93 90 06/30/20 10:20 06/30/20 10:20 06/30/20 10:20 06/30/20 10:20 06/30/20 10:20 Preop Diagnosis: headache Proposed Procedure: Operation Date: 06/30/20 11:40 Proposed Procedures p Temporal Artery Biopsy 36443 R51.9(Right) - Viral Ma MD s Bone Marrow Biopsy With Aspiration(Not Applicable) - Lala Zavala MD Familial anesthetic complications: PONV Was Beta Gil taken within 24 hours: N/A Last intake: Intake Last Liquid Date 06/29/20 Last Liquid Time 20:00 Last Solid Date 06/29/20 Last Solid Time 19:00 Social: Social History: No alcohol and No tobacco Exam: Pre-Anes Outpt Exam: alert, oriented x 3, clear to auscultation bilaterally and regular rate & rhythm Airway: Cervical ROM: WNL MP: 2 Dentition: Full Pulmonary: Pulmonary: Asthma Comments: pneumonia (frequent) Metabolic: Metabolic: DM Comments: B symptoms Anesthetic Plan: ASA status: 3 Anesthesia: MAC Risk of > 500 ml blood loss (7ml/kg in children): No Meds/Allergies Current Medications: Current Medications Generic Name Dose Route Start Last Admin Trade Name Freq PRN Reason Stop Dose Admin Sodium Chloride 1,000 mls @ 30 ml s/hr 06/30/20 10:30 06/30/20 10:28 Sodium Chloride 0.9% IV 07/01/20 10:29 30 mls/hr .Q24H HIRO Administration PFSH Anesthesia PFSH: Medical History Diabetes Surgical History H/O: hysterectomy Hx of cholecystectomy Family History Other Healthy adult No significant family history Social History Smoking and tobacco status: never smoked Alcohol intake: never Lives independently: Yes Household members: spouse Marital status: Current occupational status: employed 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
--- NOTE | 2020-06-30 11:36 | W.PM.OPSUD ---
Surgery/Procedure H&P Update DATE OF PROCEDURE: June 30, 2020 DATE H&P PERFORMED: 06/18/20 H&P UPDATE INFORMATION: I have reviewed H&P completed within last 30 days, I have examined patient prior to procedure and No changes to prior documentation PREOP DIAGNOSIS: headache PLANNED PROCEDURE: Operation Date: 06/30/20 11:40 Proposed Procedures p Temporal Artery Biopsy 74973 R51.9(Right) - Viral Ma MD s Bone Marrow Biopsy With Aspiration(Not Applicable) - Lala Zavala MD
[2020-06-30] MEDS: lidocaine 1% INJ 20 mL INJECTION (13:18)
[2020-06-30 13:25] VITALS: BP 145/98; PULSE 86; RESP 18; TEMP 36.7; O2SAT 90
--- NOTE | 2020-06-30 13:26 | PM.OP ---
Operative Report Date of procedure: June 30, 2020 Pre-op Diagnosis: headache with elevated ESR Post-op Findings: Right and left superficial temporal artery could not be identified on Doppler right superficial temporal artery confirmed on frozen section Bone marrow biopsy by Dr. Zavala Procedure Done: Right superficial temporal artery biopsy Specimens removed/disposition: Segment of right superficial temporal artery Surgeon: Viral Ma Anesthesia: MAC Condition: stable Disposition: same day Procedure: The patient was taken to the operating room and the right adventism or the left temporal artery could not be identified using a Doppler. The right temporal area was prepped and draped in a sterile manner. 5 mL of 1% lidocaine with 0.5% Marcaine was infiltrated around this area. Using a 15 blade the skin and subcutaneous tissue was divided over the approximate location of the superficial temporal artery until the temporoparietal fascia was identified. The temporoparietal fascia was opened using iris scissors and about a 3 cm segment of superficial temporal artery was skeletonized. Small vascular clips were applied proximally and distally and the artery was divided and confirmed on frozen section. Hemostasis was ensured, subcutis tissue approximate using running 3-0 Vicryl suture and skin was closed using running subcuticular 4-0 Monocryl suture and surgical glue. Please refer to Dr. Zavala's note about the bone marrow biopsy
[2020-06-30 13:45] VITALS: BP 142/95; PULSE 75; RESP 18; O2SAT 93
--- NOTE | 2020-06-30 15:52 | P.PCN_ITS ---
Bone Marrow Biopsy Bone Marrow Biopsy: I was consulted by [] office regarding bone marrow biopsy on Angela Estrada []. Briefly, the patient is a [54-year] year old female [] with [anemia and thrombocytosis]. In the Outpatient Services Department, with nursing staff and laboratory technologists in attendance, the procedure was discussed with the patient. Appropriate consent form had been signed. Appropriate alternatives, benefits and risks of procedure were discussed with the patient and she was pre-operatively assessed with a history and physical by myself and cleared for the biopsy procedure. The patient did request IV sedation and that was provided by the Anesthesia Department. Under general sedation, local anesthesia was given to the right superior iliac area, and to the periosteum and about 15 cc of bone marrow aspirate and core biopsy was obtained, patient tolerated procedure well, hemostasis was obtained, sample was sent for routine histopathology, flow cytometry/cytogenetic and further orders as per Dr. Novoa. Postprocedure nursing instructions were given. Thank you for allowing me to participate in this patient's care and diagnosis. Coding Level of Care Code Acute Radio Frequency Technician for Daisy Hartley
--- NOTE | 2020-07-02 01:06 | PTH.FRZRPT ---
Frozen Section Notes Specimen(s): Vascular fragment superficial temporal artery Gross: The specimen is received fresh in a single container labeled with the patient's name and MRN number and additionally labeled, superficial temporal artery consists of a 0.6 x 0.1 cm vascular fragment. The specimen is serially sectioned and submitted for frozen section diagnosis in [facility] 1. Preliminary Impression: Soft tissue, vascular tissue superficial temporal artery , excisional biopsy: ?Vascular fragment, consistent with temporal artery. - Specimen Information Pathologist: Madhu John Date: 06/30/20 Specimen reported at what time: 13:09 - Clinician Specimen collection time: 12:57 Clinician reported to: Viral Ma
[2020-07-21 11:01] LABS: Miscellaneous Test See Scanned Lab Rpt
== END 2020-06-30 14:08 | disposition home or self-care (01) ==
PROVIDERS: Internal Medicine Hematology & Oncology; PCP Physician Assistant; Visit Provider Surgery
PROC: (CPT 37609; principal; 2020-06-30 11:40)
PROC: (CPT 38221; 2020-06-30 11:40)
DX: R51.9 Headache, unspecified (principal); J45.909 Unspecified asthma, uncomplicated; E11.9 Type 2 diabetes mellitus without complications; Z79.82 Long term (current) use of aspirin; Z79.84 Long term (current) use of oral hypoglycemic drugs
CPT/HCPCS: 37609; 12345; 36416; 38222; 82962; 88305; J0690; J2704; J3010; J3490; J7030

== ENCOUNTER → 2020-07-05 15:03 | Outpatient (BNVA) | payer OTHER, SELFPAY | PROVIDERS: PCP Physician Assistant; Visit Provider Internal Medicine Pulmonary Disease | DX: Z11.59 Encounter for screening for other viral diseases (principal) | CPT/HCPCS: 87635 ==

== ENCOUNTER 2020-07-08 13:46 | Outpatient (CLI) | payer SELFPAY ==
--- NOTE | 2020-07-08 14:30 | PFTS_ITS ---
Date of Study:07/08/20 Date of Dictation: 07/08/2020 MECHANICS: Forced vital capacity (FVC) is reduced Forced expiratory volume in one second (FEV1) is normal FEV1/FVC is normal No significant response to bronchodilators FLOW VOLUME LOOP: Normal . LUNG VOLUMES: Total lung capacity (TLC) is normal. Residual volume (RV) is slightly increased suggestive of mild air trapping DIFFUSING CAPACITY FOR CARBON MONOXIDE: Normal . INTERPRETATION: The pulmonary function tests are normal MTDD
== END 2020-07-08 13:47 | disposition home or self-care (01) ==
LOC: RT 13:48
PROVIDERS: PCP Physician Assistant; Visit Provider Internal Medicine Pulmonary Disease
DX: J18.9 Pneumonia, unspecified organism (principal)
CPT/HCPCS: 94060; 94726; 94729; J7611

== ENCOUNTER 2020-07-15 13:47 | Outpatient (CLI) | payer SELFPAY ==
--- NOTE | 2020-07-15 13:56 | CT_ITS ---
WS: [id number] Exam: CT chest wo con [id number] Date/Time of Exam: 07/15/2020 1:58 PM Reason For Exam: resolution of pneumonia DLP: 1681.[address] scans at [facility] use at least one of these dose optimization techniques: automat ed exposure control; mA and/or kV adjustment per patient size (includes targeted exams where dose is matched to clinical indication); or iterative reconstruction. Comparison with prior CTA of the chest performed 05/12/2020. High-resolution CT scan of the chest is p erformed. There are mild groundglass densities identified throughout both lungs. No consolidated infiltrates ar e seen. The lungs are fully inflated. No pleural or pericardial effusion. The airway is patent. The t horacic aorta is normal in caliber. No mediastinal or hilar lymphadenopathy is seen. No destructive b one lesions are seen. Several vertebra contain bone hemangiomas unchanged. CT/CT chest wo con [id number] IMPRESSION: 1. Mild groundglass densities identified in both lungs essentially unchanged fr om prior study and most likely chronic. 2. No consolidating infiltrate or pulmonary mass. No lymphadenopathy in the [facility].
[2020-07-16 17:38] LABS: Immunoglobulin E 20 kU/L (<OR=114)
[2020-07-16 18:08] LABS: Bermuda Class 0; Bermuda Grass (G2) Ige <0.10 kU/L; Cat Dander (E1) Ige <0.10 kU/L; Cat Dander Class 0; Common Ragweed (Short) (W1) Ig <0.10 kU/L; Dog Dander (E5) Ige <0.10 kU/L; Dog Dander Class 0; Elm (T8) Ige <0.10 kU/L; Elm Class 0; English Plantain (W9) Ige <0.10 kU/L; English Plantain Class 0; Johnson Grass (G10) Ige <0.10 kU/L; Johnson Grass Cl 0; June Grass Class 0; June Grass(Kentucky Blue) (G8) <0.10 kU/L; Lamb'S Quarters (Goose Foot) <0.10 kU/L; Lamb'S Quarters Class 0; Maple (Box Elder) (T1) Ige <0.10 kU/L; Maple Class 0; Meadow Fescue (G4) Ige <0.10 kU/L; Meadow Fescue Class 0; Oak (T7) Ige <0.10 kU/L; Oak Class 0; Orchard Grass (Cocksfoot) (G3) <0.10 kU/L; Perennial Rye Grass (G5) Ige <0.10 kU/L; Perennial Rye Grass Class 0; Ragweeed Class 0; Rough Marsh Elder (W16) Ige <0.10 kU/L; Rough Marsh Elder Class 0; Sweet Vernal Class 0; Sweet Vernal Grass (G1) Ige <0.10 kU/L; Timothy Grass (G6) Ige <0.10 kU/L; Timothy Grass Class 0
[2020-07-19 17:52] LABS: Alternaria Alternata (M6) Ige <0.10 kU/L; Alternaria Class 0; D. Farinae Class 0; Dermatophagoides Class 0; Dermatophagoides Farinae (D2) <0.10 kU/L; Dermatophagoides Pteronyssinus <0.10 kU/L; House Dust (Greer) (H1) Ige <0.10 kU/L; House Dust (Hollister- Stier) <0.10 kU/L; House Dust Class 0; Mucor Racemosus Class 0; Penicillium Class 0; Penicillium Notatum (M1) Ige <0.10 kU/L
[2020-07-20 15:08] LABS: Aspergillus Fumigatus, Igg Ab, 23.4 mg/L (<=102)
== END 2020-07-15 13:48 | disposition home or self-care (01) ==
PROVIDERS: PCP Physician Assistant; Visit Provider Internal Medicine Pulmonary Disease
DX: J18.9 Pneumonia, unspecified organism (principal); T78.40XA Allergy, unspecified, initial encounter
CPT/HCPCS: 36415; 71250; 82785; 86003

== ENCOUNTER → 2020-07-19 12:10 | Outpatient (BNVA) | payer OTHER, SELFPAY | PROVIDERS: PCP Physician Assistant; Visit Provider Internal Medicine Critical Care Medicine | DX: Z11.59 Encounter for screening for other viral diseases (principal); J84.9 Interstitial pulmonary disease, unspecified | CPT/HCPCS: 87635 ==

== ENCOUNTER 2020-07-22 09:36 | Outpatient (CLI) | payer SELFPAY ==
--- NOTE | 2020-07-22 09:42 | MM_ITS ---
WS: [id number] Bilateral screening digital mammogram, 07/22/2020 Clinical Data: SCREENING Comparison: 08/30/2017, 08/16/2017, 02/28/2010, 02/21/2008. Findings: The breast parenchymal pattern shows fat replacement. No spiculated masses or clustered calcification s are seen. There are no secondary signs of carcinoma. MM/[place] [id number] Impression: 1. Negative bilateral mammogram unchanged. 2. Recommend annual screening mammograms. BIRADS: 1-Negative FOLLOW UP: 1 Year Follow-up The CAD material checker was used.
== END 2020-07-22 09:37 | disposition home or self-care (01) ==
LOC: RADSHAW 09:38
PROVIDERS: PCP Physician Assistant; Visit Provider Physician Assistant
DX: Z12.31 Encounter for screening mammogram for malignant neoplasm of breast (principal)
CPT/HCPCS: 77067

== ENCOUNTER 2020-07-23 06:40 | Day surgery (SDC) | payer SELFPAY ==
[2020-07-22 14:22] VITALS: BMI 34.4
[2020-07-23] VITALS (8 sets, daily range): BP systolic 125–152; BP diastolic 65–89; PULSE 78–98; RESP 16–20; TEMP 36.1–36.4; O2SAT 92–96
--- NOTE | 2020-07-23 | SCC_ITS ---
Procedure: Flexible bronchoscopy with BAL and transbronchial biopsy of right upper lobe 16.6 seconds of fluoroscopic guidance, for a cumulative dose of 2.57 mGy, was provided to Dr. Weiner by the radiology department. C-arm images of the chest were saved for the patient's permanent record. TAMIKOD
--- NOTE | 2020-07-23 06:43 | XR_ITS ---
WS: [id number] XR chest 1V portable [id number] REASON FOR EXAM: post bronch scopy with Transbroncial biopsies FINDINGS: Examination post bronchoscopy to evaluate for pneumothorax. Case discussed over the phone with pulmon ologist. No pneumothorax is identified. Minimal infiltrative change in the right upper. (Minimal infiltrative changes often seen post bronchoscopy.) The heart and mediastinum are within normal limits. XR/XR chest 1V portable [id number] IMPRESSION: Post bronchoscopy with no pneumothorax.
[2020-07-23] MEDS: sodium chloride 0.9% 1,000 ML 30 ML IV (06:55)
[2020-07-23 07:02] LABS: Glucose Point of Care 236 mg/dL (70-110)
--- NOTE | 2020-07-23 07:07 | PM.OPSURHP ---
Providers/Chief Complaint Primary Care Provider: Chacha Whitmore Chief Complaint: bronchoscopy with c-arm History of Present Illness Angela Estrada is a 54 year old female seen in clinic and scheduled for bronchoscopy for transbronchial biopsy and BAL for CD4 and CD8 count to rule out Hypersensitivity pneumonitis Pt. seen recently in pulmonary clinic on 07/13/2020. No new complaints Review of Systems Narrative: mostly constitutional drenching night sweaths low grade fevers, malaise shortness of breath especially on exertion Medications/Allergies Home Medications Medication Instructions Recorded Confirmed Last Taken Type alendronate 70 mg PO Q7D 05/10/20 07/22/20 07/21/20 History citalopram 40 mg PO DAILY 05/10/20 07/23/20 07/21/20 History glyburide 5 mg PO BEDTIME 05/10/20 07/23/20 07/21/20 History metformin 1,000 mg PO BID 05/10/20 07/23/20 07/21/20 History trazodone 50 mg PO BEDTIME PRN 05/10/20 07/23/20 07/21/20 History dulaglutide 0.75 mg/0.5 mL 0.75 mg SUBCUT .weekly ml 05/25/20 07/22/20 07/21/20 History subcutaneous pen injector cetirizine [Zyrtec] 10 mg PO DAILY 06/29/20 07/23/20 07/21/20 History docusate sodium [Colace] 100 mg PO BID #30 cap 06/30/20 07/23/20 07/21/20 Rx albuterol sulfate 90 mcg/actuation 2 puff INHALATION Q6H PRN #18 gm 07/13/20 07/23/20 07/21/20 Rx aerosol inhaler prednisone 10 mg tablet 30 mg PO DAILY #21 tab 07/15/20 07/23/20 07/21/20 Rx Allergies Allergy/AdvReac Type Severity Reaction Status Date / Time No Known Allergies Allergy Verified 07/23/20 06:47 PFSH PFSH: Medical History Diabetes Surgical History H/O: hysterectomy History of temporal artery biopsy Hx of cholecystectomy Status post colonoscopy Family History Other Healthy adult No significant family history Social History Smoking and tobacco status: never smoked Second hand smoke exposure: Yes Smoking risk assessment/counseling performed?: No Alcohol intake: never Lives independently: Yes Household members: spouse Marital status: Current occupational status: employed 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 History of recent travel: No Current gender identity: Female Dietary Habits: Caffeine: Yes Vital Signs Vitals Signs: Last Vital Signs Temp 97.5 F L 07/23/20 06:51 Pulse 93 07/23/20 06:51 Resp 18 07/23/20 06:51 BP 129/89 07/23/20 06:51 Pulse Ox 93 07/23/20 06:51 Weight: Weight last 48 hrs Weight 233 lb Weight 233 lb Physical Exam Narrative: EXAM NARRATIVE: General: alert, NAD HEENT: conj clear, EOMI, PERRL, mmm, Neck: supple, no meningismus Heme: no cervical LAP Pulmonary: CTAB, no wheezing, rhonchi, crackles Cardiovascular: rrr, nl s1s2, no mrg Abdomen: soft, nt, nd, no r/g, bs+ Extremities: pulses +, no edema, no c/c : no CVA tenderness Skin: intact, no rash MSK: no back or neck pain Neurologic: grossly intact A&P Assessment and plan (1) Interstitial lung disease: Status: Acute (2) Unexplained night sweats: Status: Acute (3) Reactive airway disease: Status: Acute Qualifiers: Asthma severity: mild Asthma persistence: unspecified Qualified Code(s): J45.909 - Unspecified asthma, uncomplicated (4) FUO (fever of unknown origin): Status: Acute Additional A&P Information #Exertional shortness of breath and nonproductive cough with remote history of allergies #PFTs restrictive spirometry and lung volumes suggestive of mild air trapping; -albuterol as needed -Allergy panel not reported-we will follow-up -on Zyrtec for allergies -If frequent symptoms we will step up therapy to add inhaled corticosteroid #Persistent fever of unknown origin, night sweats #Recently treated for Rickettsia and pneumonia #Diabetes -Lost weight but states that she recently started gaining weight -Recent CT abdomen pelvis and chest did not reveal any lymphadenopathy -CBC differential showed elevated monocytes and thrombocytosis all could be reactive to underlying inflammatory or infectious process -Bone marrow biopsy done 06/30/2020 did not show any abnormality of myeloid or lymphoid cells -Increased serum kappa and lambda light chains but ratio is normal -Elevated ESR, CRP but ANCA negative -NOLAN IFA positive 1:40, complement C3 elevated to 47 -nonspecific findings -e.chaffeensisIgG antibodies 1: 256 high - EBV IgG antibody and EBV nuclear antigen high and IgA antibodies high -all suggestive of previous/recovering EBV infection -TB QuantiFERON negative, negative sputum culture for TB after 6 weeks -We will discuss with oncology/rheumatologyID and get back to patient -Says her A1c is 11 has been on Metformin 1000 mg twice daily, glyburide 5 mg daily daily, and recently started on Trulicity 0.75 mg subcutaneously every week. Says her morning sugars are 200-300. Says she has just nighttime drenching sweats even before starting Trulicity. But to rule out possibility of Somogyi effect asked patient to check blood sugars during middle of the night and to report if they are low CT chest 07/15/20: 1. Mild groundglass densities identified in both lungs essentially unchanged from prior study and most likely chronic. 2. No consolidating infiltrate or pulmonary mass. No lymphadenopathy in the chest. Looking at HRCT inspiration and expiration films - suspect Hypersensitivity pneumonitis -ordered hypersensitivity panel , -Given endocrinology referral for diabetes management as patient reported that her sugars between 200 -300 even on Metformin thousand p.o. twice daily, glyburide 5 mg daily, dulaglutide 0.75 mg weekly injection and -today bronchoscopy for transbronchial biopsy and BAL for CD4 and CD8 count #Excessive daytime sleepiness, fatigue, snoring and headaches -Sleep study to rule out NICOLÁS-not yet done Medical condition, labs, investigations, medications, counseling regarding medication compliance, side effects, importance of follow-up appointments, and plan of care-everything explained in detail to the patient. Patient verbalized understanding and agreed with the plan of care. If symptoms worse informed patient to call 911 or go to nearest emergency room immediately. Patient verbalized understanding and agreed to do so Return to clinic in 2 months Coding Level of Care Code Established Pt Acute Leadership Program Intern for Daisy Hartley Patient Type Established History Comprehensive Exam Comprehensive Medical Decision Making Moderate Complexity Diagnoses Interstitial lung disease J84.9 Unexplained night sweats R61 Reactive airway disease J45.909 Asthma severity: mild Asthma persistence: unspecified FUO (fever of unknown origin) R50.9 Time Spent (min) 20
--- NOTE | 2020-07-23 07:23 | ANES.PREANE2 ---
Pre-Anesthetic Assessment Pre-Anesthetic Assessment: Height/Weight: Height 1.75 m Weight 105.687 kg Temp Pulse Resp BP Pulse Ox 97.5 F L 93 18 129/89 93 07/23/20 06:51 07/23/20 06:51 07/23/20 06:51 07/23/20 06:51 07/23/20 06:51 Preop Diagnosis: Hypersensitivity pneumonitis Proposed Procedure: Operation Date: 07/23/20 07:55 Proposed Procedures p Bronchoscopy 34436(Not Applicable) - Prashant Weiner MD s Colonoscopy(Not Applicable) - Viral Ma MD s possible polypectomy/excision of warts suprapubic area(Not Applicable) - Viral Ma MD Familial anesthetic complications: None Was Beta Gil taken within 24 hours: N/A Last intake: Intake Last Liquid Date 07/22/20 Last Liquid Time 22:00 Last Solid Date 07/21/20 Social: Social History: No alcohol and No tobacco Exam: Pre-Anes Outpt Exam: alert, oriented x 3, clear to auscultation bilaterally and regular rate & rhythm Airway: Cervical ROM: WNL MP: 2 Dentition: Full Pulmonary: Pulmonary: Asthma Comments: persistent pneumonia, B symptoms, Insterstitial lung disease CV/HEM: Comments: EKG - SR with possible old anterior inferior ND Metabolic: Metabolic: DM Anesthetic Plan: ASA status: 3 Anesthesia: General Other: on prednisone daily, if refractory hypotension occurs may require hdyrocoritsone 100 mg IV Risk of > 500 ml blood loss (7ml/kg in children): No Meds/Allergies Current Medications: Current Medications Generic Name Dose Route Start Last Admin Trade Name Freq PRN Reason Stop Dose Admin Sodium Chloride 1,000 mls @ 30 ml s/hr 07/23/20 06:45 07/23/20 06:55 Sodium Chloride 0.9% IV 07/24/20 06:44 30 mls/hr .Q24H HIRO Administration PFSH Anesthesia PFSH: Medical History Diabetes Surgical History H/O: hysterectomy History of temporal artery biopsy Hx of cholecystectomy Status post colonoscopy Family History Other Healthy adult No significant family history Social History Smoking and tobacco status: never smoked Second hand smoke exposure: Yes Smoking risk assessment/counseling performed?: No Alcohol intake: never Lives independently: Yes Household members: spouse Marital status: Current occupational status: employed 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
--- NOTE | 2020-07-23 07:35 | W.PM.OPSUD ---
Surgery/Procedure H&P Update DATE OF PROCEDURE: July 23, 2020 DATE H&P PERFORMED: 07/19/20 H&P UPDATE INFORMATION: I have reviewed H&P completed within last 30 days, I have examined patient prior to procedure and No changes to prior documentation PREOP DIAGNOSIS: screening PLANNED PROCEDURE: Operation Date: 07/23/20 07:55 Proposed Procedures p Bronchoscopy 59592(Not Applicable) - Prashant Weiner MD s Colonoscopy(Not Applicable) - Viral Ma MD s possible polypectomy/excision of warts suprapubic area(Not Applicable) - Viral Ma MD
--- NOTE | 2020-07-23 08:55 | SC_ITS ---
WS: [id number] Right chest with C-arm fluoroscopy for bronchoscopy, 07/23/2020 Clinical Data: intra-op Comparison: None. Findings: The bronchoscope enters the right upper lobe bronchus. SC/C-arm FL for Bronchoscopy Impression: Images of bronchoscopy in the right lung.
[2020-07-23] MEDS: lidocaine 1% INJ 20 mL XX (09:15)
[2020-07-23] MEDS: EPINEPHrine 1 mg/mL INJ XX (09:25)
--- NOTE | 2020-07-23 10:05 | PM.OP ---
Operative Report Date of procedure: Procedure: Flexible bronchoscopy with BAL and transbronchial biopsy of right upper lobe Pre-Operative Diagnosis: Hypersensitivity pneumonitis Post-Operative Diagnosis: Same Indication: Patient with unexplained low-grade fevers, drenching night sweats, elevated ESR, persistent GGO's on CT chest Anesthesia: Anesthesia Pre-procedure Evaluation: Patient was evaluated clinically and ancillary testing reviewed. The risk of having active MTB infection is very low in my clinical judgement. ASA:3 Malampati score: unable to evaluate due to presence of endotracheal tube Consent: Consents were obtained from patient/MPOA and placed in the chart Procedure Details: Time out was performed by the procedure team and nursing staff. Vent support maintained on Fio2 100. The bronchoscope was introduced through the ETT. Distal trachea look normal. Main giorgio looked sharp. A bronchoscopic airway exam was performed to evaluate the visible tracheobronchial tree to the segmental level up to 3RD generation. The left bronchial tree was assessed to include the left mainstem bronchus, MIGUELITO, Lingula, and LLL bronchi to the segmental level. Mucosa looked normal throughout with no endobronchial lesions or abnormalities. T cysts hen the right bronchial tree was assessed to include the right mainstem bronchus, RBI, and RUL/RML/RLL bronchi to the segmental level. Mucosa looked normal throughout with no endobronchial lesions or abnormalities except right upper lobe subsegment has 4 openings. BAL and 5 transbronchial biopsies were taken from the posterior subsegment of the right upper lobe. The bronchoscope was then removed and the procedure terminated. Estimated Blood Loss: 10 mL Specimens: BAL from right upper lobe sent for microbiology culture, mycobacterial stain and culture, fungal cultures, viral culture, cell count and differential, flow cytometry, transbronchial biopsies in saline to microbiology for culture and transbronchial biopsies informally sent to pathology. Complications:None; patient tolerated the procedure well. Chest x-ray pending to rule out post transbronchial biopsy pneumothorax. Disposition: Home Prashant Weiner MD Pulmonary critical Care Medicine [facility] Pre-op Diagnosis: screening Associated Problem List Diagnoses (1) Interstitial lung disease: (2) Unexplained night sweats: (3) FUO (fever of unknown origin):
--- NOTE | 2020-07-23 12:15 | ANE.PACU2 ---
Inpatient post-anesthesia follow up: Airway intact: Yes Vital signs: Temperature 97.0 F Pulse Rate 78 Respiratory Rate 18 Blood Pressure 125/72 Pulse Oximetry 92 Oxygen Delivery Me thod Room Air Oxygen Flow Rate 8 Fraction of Inspir ed Oxygen Hydration adequate: Yes Nausea and vomiting: No Pain level: 2 Mental status: Baseline
[2020-07-23 13:13] LABS: Apprearance, Bronch Wash Clear (CLEAR); Color, Bronc Wash Colorless; PATH Referral Yes
[2020-07-23 15:34] LABS: Total Cells Counted Bronch 200
--- NOTE | 2020-07-23 15:53 | PM.OP ---
Operative Report Date of procedure: July 23, 2020 Pre-op Diagnosis: Vulvar lesions, screening colonoscopy Post-op Diagnosis: #1 7 x 7 mm papular lesion right side of the vulva #2 1 x 1 cm papular lesion inferior right side of vulva 5 mm sessile polyp removed with cold biopsy forceps sigmoid colon Procedure Done: Colonoscopy with polypectomy using cold biopsy forceps Excision of skin lesion right side of vulva Cautery of skin lesion right side of vulva Pathology: 1: Sigmoid colon polyp 2: Skin lesion right side of vulva Surgeon: Viral Ma Anesthesia: General Condition: stable Disposition: PACU Procedure: The patient was taken to the operating room and placed in the supine position well bronchoscopy was performed. The area around the vulva on the right side was prepped and draped in a sterile manner. 1% lidocaine with 1 2% Marcaine was infiltrated under the 2 lesions. Using a 15 blade lesion #1 which measured about 7 x 7 mm was excised and the base was cauterized. The specimen is sent to pathology Lesion #2 which measured 1 x 1 cm was cauterized and hemostasis ensured The patient was then placed in left lateral position after bronchoscopy was completed, refer to Dr. Weiner's note for bronchoscopy details. The colonoscope was introduced and advanced up to the cecum where the ileocecal valve and the appendicular orifice was visualized. The colonoscope was slowly withdrawn. The colon prep was fair. Cecum: Normal Ascending colon: Normal Transverse colon: Normal Descending colon: Normal Sigmoid colon: 5 mm sessile polyp removed with cold biopsy forceps Rectum:: Internal hemorrhoids JEN: internal hemorrhoids The patient was extubated and transferred to recovery room in stable condition.
[2020-07-26 22:27] LABS: Legionella Specimen Source BRONCH
[2020-07-28 09:47] LABS: Miscellaneous Test See Scanned Lab Rpt
[2020-08-17 18:33] LABS: Histoplasma Antigen (Quant) NONE DETECTED; Histoplasma Antigen Interpreta NEGATIVE
== END 2020-07-23 12:16 | disposition home or self-care (01) ==
PROVIDERS: Internal Medicine Pulmonary Disease; Surgery; PCP Physician Assistant; Visit Provider Internal Medicine Critical Care Medicine
PROC: 0BJ08ZZ Inspection of Tracheobronchial Tree, Via Natural or Artificial Opening Endoscopic (ICD-10-PCS; CPT 31622; principal; 2020-07-23 07:55)
PROC: 0DJD8ZZ Inspection of Lower Intestinal Tract, Via Natural or Artificial Opening Endoscopic (ICD-10-PCS; CPT 45378; 2020-07-23 07:55)
DX: J67.9 Hypersensitivity pneumonitis due to unspecified organic dust (principal); J45.909 Unspecified asthma, uncomplicated; E11.9 Type 2 diabetes mellitus without complications; Z79.52 Long term (current) use of systemic steroids; Z79.84 Long term (current) use of oral hypoglycemic drugs; J84.9 Interstitial pulmonary disease, unspecified; R61 Generalized hyperhidrosis; R50.9 Fever, unspecified
CPT/HCPCS: 12345; 36416; 71045; 76000; 80500; 82962; 87015; 87070; 87102; 87116; 87176; 87205; 87206; 87278; 87385; 87798; 87801; 88112; 88304; 88305; 89050; J0171; J1100; J2405; J2704; J2710; J3010; J3490; J7030

== ENCOUNTER → 2020-07-29 13:31 | Outpatient (BNVA) | payer SELFPAY | PROVIDERS: PCP Physician Assistant; Referring Provider Internal Medicine Pulmonary Disease; Visit Provider Internal Medicine | DX: E11.65 Type 2 diabetes mellitus with hyperglycemia (principal); Z79.52 Long term (current) use of systemic steroids | CPT/HCPCS: 99204 ==

== ENCOUNTER 2020-07-29 15:37 | Outpatient (CLI) | payer SELFPAY ==
[2020-07-29 16:59] LABS: Free T4 Free Thyroxine 1.37 ng/dL (0.82-1.77); T3 Free 2.3 PG/ML (2.0-4.4); Thyroid Stimulating Hormone 0.65 uIU/mL (0.27-4.20)
[2020-07-29 17:06] LABS: Estmated Average Glucose 200; Hemoglobin A1C 8.6 % (4.0-6.0)
[2020-07-29 17:12] LABS: HIV 1 & 2 Antibody Non-Reactive (Non-Reactiv); HIV 1 & 2 Antigen Non-Reactive (Non-Reactiv)
[2020-07-29 17:13] LABS: Hepatitis A Antibody IgM Non-Reactive (Nonreactive); Hepatitis B Core AB, Total Non-Reactive (Nonreactive); Hepatitis B Surface AB 3.5 (0-8.5); Hepatitis B Surface Antigen Non-Reactive (Nonreactive); Hepatitis C Virus Antibody Non-Reactive (Nonreactive)
[2020-07-29 17:41] LABS: Erythrocyte Sedimentation Rate 32 mm/hr (0-15)
[2020-07-30 11:57] LABS: COMPLEMENT COMPONENT C3C 175 mg/dL (83-193); COMPLEMENT COMPONENT C4C 27 mg/dL (15-57)
[2020-07-30 12:27] LABS: CENTROMERE B ANTIBODY <1.0 NEG AI (<1.0 NEG); JO-1 ANTIBODY <1.0 NEG AI (<1.0 NEG); RNP ANTIBODY <1.0 NEG AI (<1.0 NEG); SCL-70 ANTIBODY <1.0 NEG AI (<1.0 NEG); SJOGREN'S ANTIBODY (SS-A) <1.0 NEG AI (<1.0 NEG); SM ANTIBODY <1.0 NEG AI (<1.0 NEG); SS-B <1.0 NEG AI (<1.0 NEG)
[2020-07-30 12:58] LABS: COMPLEMENT, TOTAL (CH50) >60 U/mL (31-60)
[2020-07-30 14:28] LABS: Lyme AB Screen <0.90 index
[2020-07-30 14:58] LABS: ANA SCREEN, IFA NEGATIVE (NEGATIVE)
[2020-07-30 17:33] LABS: THYROID PEROXIDASE ANTIBODIES <1 IU/mL (<9)
[2020-07-31 14:33] LABS: Quantiferon Mitogen >10.00 IU/mL; Quantiferon Nil 0.01 IU/mL; Quantiferon Plus TB1 0.01 IU/mL; Quantiferon Plus TB2 0.01 IU/mL; Quantiferon TB Gold NEGATIVE (NEGATIVE)
[2020-08-02 23:36] LABS: DNA AB (DS) CRITHIDIA,IFA NEGATIVE (NEGATIVE)
[2020-08-03 16:38] LABS: E. Chaffeensis AB IGM <1:20; Interpretation PAST INFECTION
[2020-08-03 17:38] LABS: RMSF IGG NOT DETECTED; RMSF IGM NOT DETECTED
== END 2020-07-29 15:38 | disposition home or self-care (01) ==
LOC: LAB 15:38
PROVIDERS: Internal Medicine Pulmonary Disease; Student in an Organized Health Care Education/Training Program; PCP Physician Assistant; Visit Provider Internal Medicine
DX: R50.9 Fever, unspecified (principal); J18.9 Pneumonia, unspecified organism
CPT/HCPCS: 36415; 83036; 84439; 84443; 84481; 85651; 86480; 86618; 86666; 86705; 86706; 86709; 86757; 86803; 87340; 87385; 87806

== ENCOUNTER 2020-07-30 13:19 | Emergency (ER) | payer SELFPAY ==
[2020-07-30 13:35] VITALS: BP 122/81; PULSE 94; RESP 18; TEMP 37; O2SAT 94; BMI 34.5
[2020-07-30 14:51] LABS: Basophils % 0.3 %; Eosinophils % 0.2 %; Hematocrit 45.6 % (37.0-47.0); Hemoglobin 14.3 g/dL (11.5-15.3); Lymphocytes % 15.9 %; Mean Corpuscular HGB Conc 31.4 g/dL (30.0-36.0); Mean Corpuscular Hemoglobin 28.5 pg (28.0-34.0); Monocytes # 0.4 10^3/uL (0.2-0.9); Monocytes % 2.9 %; Neutrophils # 10.27 10^3/uL (1.8-7.7); Neutrophils % 79.8 %; Nucleated Red Blood Cells % 0 %; Platelet Count 409 10^3/cmm (130-400); Red Blood Count 5.01 10^6/uL (4.1-5.3); Red Cell Distribution Width 15.7 % (12.1-15.1); White Blood Count 12.9 10^3/uL (4.0-10.0)
[2020-07-30 15:12] LABS: Alanine Aminotransferase 36 U/L (0-33); Albumin Level 4.3 g/dL (3.5-5.2); Alkaline Phosphatase 63 IU/L (35-105); Anion Gap 19.7 (5-19); Aspartate Amino Transferase 45 U/L (0-32); Blood Urea Nitrogen 19 mg/dL (6-20); Calcium 9.3 mg/dL (8.5-10.5); Carbon Dioxide 23 mmol/L (22-29); Chloride 94 mmol/L (98-107); Globulin 3.7 g/dL (1.3-4.6); Glomerular Filtration Rate 86.6 mL/min (90-130); Lipase 98 U/L (13-60); Osmolality Calculated 300 mOsm/kg (285-295); Potassium 5.7 mmol/L (3.5-5.1); Sodium 131 mmol/L (136-145); Total Bilirubin 0.5 mg/dL (0.15-1.2)
[2020-07-30 15:16] LABS: Glucose 569 mg/dL (65-115)
--- NOTE | 2020-07-30 16:31 | XRR_ITS ---
PROCEDURE INFORMATION: Exam: XR Chest, 1 View Exam date and time: 07/30/2020 4:41 PM Age: 54 years old Clinical indication: Other: Vomiting blood; Patient HX: SOB TECHNIQUE: Imaging protocol: XR of the chest Views: 1 view. COMPARISON: CR XR chest 1V portable [id number] 07/23/2020 10:46 AM FINDINGS: Lungs: Unremarkable. No consolidation. Upper lobe infiltrates are improved compared with 07/23/2020 Pleural space: Unremarkable. No pleural effusion. No pneumothorax. Heart/Mediastinum: Unremarkable. No cardiomegaly. Bones/joints: Unremarkable. XR/XR chest 1V portable [id number] IMPRESSION: No acute findings.
--- NOTE | 2020-07-30 16:32 | CTR_ITS ---
PROCEDURE INFORMATION: Exam: CT Angiography Chest With Contrast Exam date and time: 07/30/2020 5:52 PM Age: 54 years old Clinical indication: Patient HX: 1 week S/P bronch w hemoptysis TECHNIQUE: Imaging protocol: Computed tomographic angiography of the chest with intravenous contrast. 3D rendering (Not supervised by radiologist): MIP and/or 3D reconstructed images were created by the technologist. Radiation optimization: All CT scans at this facility use at least one of these dose optimization techniques: automated exposure control; mA and/or kV adjustment per patient size (includes targeted exams where dose is matched to clinical indication); or iterative reconstruction. Contrast material: OMNI 350; Contrast volume: 67 ml; Contrast route: INTRAVENOUS (IV); COMPARISON: 1. CT angio chest PE protcl [id number] 05/12/2020 2:[address] chest wo con [id number] 07/15/2020 2:04:27 PM RADIATION DOSE METRICS: Total DLP (mGy-cm): 535.53 FINDINGS: Limitations: Suboptimal/less than robust opacification the pulmonary arterial tree. Pulmonary arteries: There is no evidence of filling defects within the pulmonary arterial circulation to suggest pulmonary embolism. Aorta: Unremarkable. No aortic aneurysm. No aortic dissection. Lungs: There are mild scattered ground-glass opacity showing improvement compared with 05/12/2020. There is some thickening of the upper end of the major fissure. The appearance of the lungs is not changed compared with 07/15/2020. No new infiltrate is identified. Pleural space: Unremarkable. No pneumothorax. No pleural effusion. Heart: Unremarkable. No cardiomegaly. No pericardial effusion. Lymph nodes: Unremarkable. No enlarged lymph nodes. Bones/joints: Unremarkable. No acute fracture. Soft tissues: Unremarkable. CT/CT angio chest PE protcl [id number] IMPRESSION: 1. No evidence of pulmonary embolism. 2. Minimal pulmonary scarring or subsegmental atelectasis. 3. No acute infiltrate. Radiation Dose CTDIVOL = (mGy): DLP = 535.53 (mGy-cm)
--- NOTE | 2020-07-30 16:36 | W.ED.GENADLT ---
HPI - General Adult General: Chief complaint: General Medical Stated complaint: THROWING UP BLOOD Time Seen by Provider: 07/30/20 16:25 Source: patient Mode of arrival: ambulatory Limitations: no limitations History of Present Illness: HPI narrative: 54-year-old female states she had a bronchoscopy last week for biopsy. She states since then she has had episodes hemoptysis. She states she had another episode today where she coughed up some blood clots. She denies any shortness of breath. She states she called her commercial carpet installer who recommended her come to the ER. She denies any chest pain. She denies any weakness or fever. Denies any worsening improving factors. Associated symptoms: Deny chest pain, headache(s), nausea, rash or vomiting Review of Systems Const: Denies: fever(s), chills, body aches or change in appetite Eyes: Denies: blurry vision or eye discomfort ENMT: Denies: throat pain or dental pain Card: Denies: chest pain Resp: Reports: hemoptysis GI: Denies: abdominal pain, nausea, vomiting or diarrhea : Denies: dysuria Musc: Denies: neck pain or back pain Skin/Breast: Denies: rash Neuro: Denies: headache(s) Psych: Denies: depression Woodrow/Lymph: Denies: easy bruising All/Imm: Denies: urticaria PFSH ED PFSH: Medical History Diabetes Surgical History H/O: hysterectomy History of temporal artery biopsy Hx of cholecystectomy Status post colonoscopy (07/23/20) Family History (Updated 07/29/20 @ 13:59 by Jose Potter) Mother Diabetes Sister Diabetes Other Healthy adult No significant family history Social History Smoking and tobacco status: never smoked Second hand smoke exposure: Yes Smoking risk assessment/counseling performed?: No Alcohol intake: never Lives independently: Yes Household members: spouse Marital status: Current occupational status: employed 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 History of recent travel: No Current gender identity: Female Physical Exam Const: COMMON NORMALS: no acute distress, patient oriented x3 and healthy appearing HENMT: COMMON NORMALS: normocephalic and atraumatic HEAD & SCALP: normocephalic and atraumatic Eye: COMMON NORMALS: Equal, round and reactive pupils present and EOMs intact bilaterally PUPIL: Yes Equal, round and reactive pupils present Neck/C-Spine: COMMON NORMALS: full ROM and supple Chest: COMMONS NORMALS: normal inspection of the chest and normal palpation of entire chest wall Resp: COMMON NORMALS: normal respiratory effort, No retractions, No use of accessory muscles and clear to auscultation bilaterally AUSCULTATION: clear to auscultation bilaterally Cardio: COMMON NORMALS: regular rate, regular rhythm and No murmurs present (Cardio) RATE: regular rate RHYTHM: regular rhythm GI: COMMON NORMALS: Normal to inspection, nondistended, normoactive bowel sounds present, Soft to palpation, non-tender and no masses PALPATION: Yes Soft to palpation Extremity: COMMON NORMALS: normal to inspection and full ROM Neuro: COMMON NORMALS: patient oriented x3, moves all extremities and no focal motor deficits Psych: COMMON NORMALS: mental status grossly normal, Normal thought process present and cooperative THOUGHT PROCESS: Normal thought process present Skin: COMMON NORMALS: no rashes or lesions noted and no wounds GENERAL SKIN EXAM: no rashes or lesions noted Course Vital Signs: Vital signs: Vital Signs Temperature 98.6 F 07/30/20 13:35 Pulse Rate 69 07/30/20 18:35 Respiratory Rate 18 07/30/20 18:35 Blood Pressure 117/73 07/30/20 18:35 Pulse Oximetry 95 07/30/20 18:35 MDM - General Adult MDM Narrative: Medical decision making narrative: Patient presents here with hemoptysis. She had no hemoptysis here CT scan is normal. I spoke to her commercial carpet installer he wants her to take her steroids and did feel her cough medicine any prescriber. I informed her of this that she is that she is going to had to the pharmacy. Patient is stable for discharge and is to follow-up with the commercial carpet installer. She is return if worsening. Patient is also hyperglycemic and informed her she needs to take her insulin and check her sugar closely. Lab Data: Labs: Lab Results 07/30/20 07/30/20 07/30/20 Range/Units 14:43 14:43 17:45 WBC 12.9 H (4.0-10.0) 10^3/ uL RBC 5.01 (4.1-5.3) 10^6/u L Hgb 14.3 (11.5-15.3) g/dL Hct 45.6 (37.0-47.0) % MCV 91.0 (81-99) fL MCH 28.5 (28.0-34.0) pg MCHC 31.4 (30.0-36.0) g/dL RDW 15.7 H (12.1-15.1) % Plt Count 409 H (130-400) 10^3/c mm MPV 10.0 (7.4-10.4) fL Neut % (Auto) 79.8 % Lymph % (Auto) 15.9 % Andrew % (Auto) 2.9 % Eos % (Auto) 0.2 % Baso % (Auto) 0.3 % Neut # (Auto) 10.27 H (1.8-7.7) 10^3/u L Lymph # (Auto) 2.0 (0.8-4.8) 10^3/u L Andrew # (Auto) 0.4 (0.2-0.9) 10^3/u L Eos # (Auto) 0.0 (0.0-0.8) 10^3/u L Baso # (Auto) 0.0 (0.0-0.1) 10^3/u L Nucleated RBC % (a uto) 0 % Nucleated RBCs # 0.0 /100WBC Sodium 131 L (136-145) mmol/L Potassium 5.7 H (3.5-5.1) mmol/L Chloride 94 L (98-107) mmol/L Carbon Dioxide 23 (22-29) mmol/L Anion Gap 19.7 H (5-19) BUN 19 (6-20) mg/dL Creatinine 0.7 (0.5-0.9) mg/dL GFR Calculation 86.6 L (90-130) mL/min Glucose 569 H* (65-115) mg/dL POC Glucose 330 (70-110) mg/dL Calculated Osmolal ity 300 H (285-295) mOsm/k g Calcium 9.3 (8.5-10.5) mg/dL Total Bilirubin 0.5 (0.15-1.2) mg/dL AST 45 H (0-32) U/L ALT 36 H (0-33) U/L Alkaline Phosphata se 63 (35-105) IU/L Total Protein 8.0 (6.6-8.7) g/dL Albumin 4.3 (3.5-5.2) g/dL Globulin 3.7 (1.3-4.6) g/dL Lipase 98 H (13-60) U/L Discharge Plan Discharge Patient Disposition: Home Clinical Impression: Hemoptysis Diabetes Qualifiers: Diabetes mellitus type: type 2 Diabetes mellitus chcf insulin use: unspecified chcf insulin use status Diabetes mellitus complication status: with other specified complication Qualified Code(s): E11.69 - Type 2 diabetes mellitus with other specified complication Condition: Stable Prescriptions: No Action Lantus Solostar U-100 Insulin 100 unit/mL (3 mL) insulin pen 10 unit SUBCUT DAILY 90 Days Qty: 15 RF: 3 metformin 1,000 mg tablet 1,000 mg PO BID Qty: 90 RF: 3 albuterol sulfate [ProAir HFA] 90 mcg/actuation HFA aerosol inhaler 2 puff INHALATION Q6H PRN (Reason: shortness of breath or wheezing) Qty: 18 RF: 3 prednisone 10 mg tablet 30 mg PO DAILY Qty: 21 RF: 2 codeine-guaifenesin 8-200 mg/5 mL liquid 5 ml PO Q6H PRN (Reason: cough) Qty: 473 RF: 0 magnesium citrate Solution 150 ml PO ONCE PRN (Reason: Constipation) RF: 0 Miralax 17 gram/dose Powder 17 g PO DAILY RF: 0 Trulicity 0.75 mg/0.5 mL Pen Injector 0.75 mg SUBCUT Q7D RF: 0 Ozempic 0.25 mg or 0.5 mg(2 mg/1.5 mL) pen injector 0.25 mg SUBCUT Q7D RF: 0 citalopram 40 mg tablet 40 mg PO DAILY RF: 0 trazodone 50 mg tablet 50 mg PO BEDTIME PRN (Reason: Sleep) RF: 0 alendronate 70 mg tablet 70 mg PO Q7D RF: 0 Discharge Orders: Discharge Order (Routine); Ordered 07/30/20 Ordered By: Cachorro Hull Referrals: Chacha Whitmore PA [Primary Care Provider] - Discharge Diet: Advance as tolerated Discharge Activity: Resume usual activity Patient Instructions: Acute Hemoptysis (ED) Coding Level of Care Code ED Certified Mortician for Daisy Fwd Exam Comprehensive
[2020-07-30] MEDS: sodium chloride 0.9% 1,000 ML 999 ML IV (16:45)
[2020-07-30] MEDS: insulin regular-human 100 units/1 mL 5 UNIT IVP (16:49)
[2020-07-30 17:51] LABS: Glucose Point of Care 330 mg/dL (70-110)
[2020-07-30] MEDS: iohexol 350 mg/mL 100 mL Btl IV (18:07)
[2020-07-30 18:35] VITALS: BP 117/73; PULSE 69; RESP 18; O2SAT 95
[2020-07-30 19:18] VITALS: BP 120/76; PULSE 71; RESP 18; O2SAT 93
--- NOTE | 2020-08-03 21:47 | PC.NURSE ---
Spoke with patient's about how patient is doing. states patient has been doing well and no new issues. states they will see PCP in the morning about getting antifungal medications for positive blood culture for fungus. states patient will return to ER if patient begins feeling bad or worse. Dr. Morales notified and agrees.
== END 2020-07-30 19:20 | disposition home or self-care (01) ==
PROVIDERS: Emergency Provider Emergency Medicine; PCP Physician Assistant
DX: R04.2 Hemoptysis (principal); E11.69 Type 2 diabetes mellitus with other specified complication; Z79.4 Long term (current) use of insulin; Z77.22 Contact with and (suspected) exposure to environmental tobacco smoke (acute) (chronic)
CPT/HCPCS: 12345; 36416; 71045; 71275; 80053; 82962; 83690; 85025; 96361; 96374; 99282; 99283; J1815; J7030; Q9967

== ENCOUNTER 2020-08-06 09:55 | Outpatient (CLI) | payer SELFPAY ==
[2020-08-06 11:04] LABS: Alanine Aminotransferase 37 U/L (0-33); Alkaline Phosphatase 61 IU/L (35-105); Anion Gap 20.4 (5-19); Aspartate Amino Transferase 32 U/L (0-32); Blood Urea Nitrogen 17 mg/dL (6-20); Calcium 9.2 mg/dL (8.5-10.5); Carbon Dioxide 21 mmol/L (22-29); Chloride 92 mmol/L (98-107); Globulin 3.6 g/dL (1.3-4.6); Glomerular Filtration Rate 74.2 mL/min (90-130); Glucose 482 mg/dL (65-115); Osmolality Calculated 291 mOsm/kg (285-295); Potassium 4.4 mmol/L (3.5-5.1); Sodium 129 mmol/L (136-145); Total Bilirubin 0.5 mg/dL (0.15-1.2); Total Protein 7.6 g/dL (6.6-8.7)
[2020-08-06 11:05] LABS: Bilirubin Urine Neg (Negative); Blood Urine Neg (Negative); Glucose Urine UA 4+ (Normal); Ketones Urine Negative (Negative); Leukocyte Esterase Urine Negative (Negative); Nitrate Urine Negative (Negative); Protein Urine Neg (Negative); RBC Urine RARE /hpf (0-2); Specific Gravity, Urine 1.015 (1.005-1.030); Squamous Epithelial Cell Urine RARE /hpf (0-5); Urine Appearance Clear (CLEAR); Urine Color Yellow (Yellow); Urobilinogen Urine Norm (Negative); WBC Urine RARE /hpf (0-5); pH Urine 5 (5-7)
== END 2020-08-06 09:56 | disposition home or self-care (01) ==
LOC: LAB 09:59
PROVIDERS: PCP Physician Assistant; Visit Provider Internal Medicine Pulmonary Disease
DX: E11.69 Type 2 diabetes mellitus with other specified complication (principal); R04.2 Hemoptysis; J18.9 Pneumonia, unspecified organism; R50.9 Fever, unspecified; R53.81 Other malaise; R53.83 Other fatigue
CPT/HCPCS: 80053; 81001; 86698

== ENCOUNTER → 2021-01-06 09:56 | Outpatient (BNVA) | payer OTHER, SELFPAY | PROVIDERS: PCP Physician Assistant; Visit Provider Internal Medicine Pulmonary Disease | DX: J45.909 Unspecified asthma, uncomplicated (principal) | CPT/HCPCS: 87635 ==

== ENCOUNTER 2021-01-11 10:02 | Outpatient (CLI) | payer SELFPAY ==
--- NOTE | 2021-01-11 11:30 | CT_ITS ---
WS: [id number] CT CHEST CT-HIGH RESOLUTION, NONCONTRAST. HISTORY: Interstitial lung disease. Technique: High-resolution chest CT is performed in inspiration, expiration, supine and prone positio galina. All CT scans at [facility] use at least one of these dose optimization techniques: automa vince exposure control; mA and/or kV adjustment per patient size (includes targeted exams where dose is matched to clinical indication); or iterative reconstruction. DLP: 303.32 mGy.cm COMPARISON: 07/30/2020 Findings: Lungs are hyperinflated. There are focal areas of linear atelectasis in the upper lung fiel ds. Additional scattered ill-defined subcentimeter opacifications throughout both lungs in a tree-in- bud airspace distribution. There is no honeycombing or traction bronchiectasis. There is volume loss and a very minimal mosaic attenuation on expiration. Due to the minimal change in attenuation cannot determine which is the normal versus abnormal lung. On the prone positioning the areas of atelectasis did not improve in the upper lung graff. No pleural effusions or pulmonary nodules. CT/CT chest wo con [id number] Impression: 1. There is no evidence for honeycombing or traction bronchiectasis. 2. Persistent areas of atelectasis or scar in the upper lung graff bilaterall y on prone positioning. 3. Peripheral multilobar areas of interstitial thickening distally with no def inite air trapping. 4. Consider hypersensitivity pneumonia and endobronchial spread of infection.
--- NOTE | 2021-01-11 13:39 | PFTS_ITS ---
Date of Study:01/11/21 Date of Dictation: 01/11/2021 MECHANICS: Postbronchodilator forced vital capacity (FVC) is reduced. Postbronchodilator forced expiratory volume in one second (FEV1) is moderately reduced 69% FEV1/FVC is normal. There is significant bronchodilator response at FEF 25 and 75% FLOW VOLUME LOOP: Sloping of end expiratory limb suggestive of small airway obstruction LUNG VOLUMES: Total lung capacity (TLC) is normal. Residual volume (RV) is normal. DIFFUSING CAPACITY FOR CARBON MONOXIDE: Mildly reduced 71% . INTERPRETATION: The spirometry suggestive of mixed pattern with restriction and significant response to bronchodilator at FEV1 25-75% suggestive of small airway obstruction. Lung volumes are normal. There is mild gas transfer defect. Please correlate clinically. MTDD
== END 2021-01-11 10:03 | disposition home or self-care (01) ==
LOC: RT 10:04
PROVIDERS: PCP Physician Assistant; Visit Provider Internal Medicine Pulmonary Disease
DX: J67.9 Hypersensitivity pneumonitis due to unspecified organic dust (principal); J45.909 Unspecified asthma, uncomplicated; J84.9 Interstitial pulmonary disease, unspecified
CPT/HCPCS: 71250; 94060; 94726; 94729; J7611

== ENCOUNTER → 2021-04-27 10:45 | Outpatient (BNVA) | payer MEDICAID, SELFPAY | PROVIDERS: PCP Physician Assistant; Visit Provider Nurse Practitioner Family | DX: Z20.822 Contact with and (suspected) exposure to COVID-19 (principal); J06.9 Acute upper respiratory infection, unspecified | CPT/HCPCS: 87426; 87635 ==

== ENCOUNTER → 2021-07-13 12:55 | Outpatient (BNVA) | payer MEDICAID, SELFPAY | PROVIDERS: PCP Physician Assistant; Visit Provider Nurse Practitioner Family | DX: Z20.822 Contact with and (suspected) exposure to COVID-19 (principal) | CPT/HCPCS: 87635 ==

== ENCOUNTER → 2021-08-04 11:11 | Outpatient (BNVA) | payer MEDICAID, SELFPAY | PROVIDERS: PCP Physician Assistant; Visit Provider Family Medicine | DX: E11.65 Type 2 diabetes mellitus with hyperglycemia (principal); Z79.4 Long term (current) use of insulin; Z76.89 Persons encountering health services in other specified circumstances | CPT/HCPCS: 80053; 82043; 83036; 85025 ==

== ENCOUNTER → 2021-11-15 11:17 | Outpatient (BNVA) | payer MEDICAID, SELFPAY | PROVIDERS: PCP Family Medicine; Visit Provider Family Medicine | DX: E11.65 Type 2 diabetes mellitus with hyperglycemia (principal); R35.0 Frequency of micturition; E11.69 Type 2 diabetes mellitus with other specified complication; Z13.220 Encounter for screening for lipoid disorders; Z13.6 Encounter for screening for cardiovascular disorders; Z79.4 Long term (current) use of insulin; E66.9 Obesity, unspecified; R30.0 Dysuria | CPT/HCPCS: 81000; 83036 ==

== ENCOUNTER 2022-04-19 11:18 | Outpatient (CLI) | payer MEDICAID, SELFPAY ==
--- NOTE | 2022-04-19 11:22 | MM_ITS ---
WS: [id number] Bilateral screening 3D tomosynthesis digital mammogram, 04/19/2022 Clinical Data: SCREENING Comparison: 07/22/2020, 08/30/2017, 08/16/2017, 02/28/2010, 02/21/2028. Findings: The breast parenchymal pattern shows fibroglandular tissue. No spiculated masses or clustered calcifi cations are seen. There are no secondary signs of carcinoma. There are lymph nodes in the left axilla . MM/[place] [id number] Impression: 1. Negative bilateral mammogram unchanged. 2. Recommend annual screening mammograms. BIRADS: 1-Negative FOLLOW UP: 1 Year Follow-up The CAD toolroom checker was used.
== END 2022-04-19 11:19 | disposition home or self-care (01) ==
LOC: RAD 11:19
PROVIDERS: PCP Family Medicine; Visit Provider Family Medicine
DX: Z12.31 Encounter for screening mammogram for malignant neoplasm of breast (principal)
CPT/HCPCS: 77063; 77067

== ENCOUNTER 2022-06-05 11:41 | Outpatient (CLI) | payer MEDICAID, SELFPAY ==
[2022-06-05 12:58] LABS: Anion Gap 13.9 (5-19); Blood Urea Nitrogen 13 mg/dL (6-20); Calcium 9.1 mg/dL (8.5-10.5); Carbon Dioxide 26 mmol/L (22-29); Chloride 100 mmol/L (98-107); Cholesterol 169 mg/dL (0-200); Glomerular Filtration Rate 102.7 mL/min (90-130); Glucose 136 mg/dL (65-115); HDL Cholesterol 47 mg/dL (60-100); LDL Cholesterol Calculated 100 mg/dL (50-129); LDL HDL Ratio 2.13 RATIO (0.00-3.22); Osmolality Calculated 284 mOsm/kg (285-295); Potassium 3.9 mmol/L (3.5-5.1); Sodium 136 mmol/L (136-145); Triglycerides 109 mg/dL (0-150)
[2022-06-05 13:08] LABS: Creatinine Urine, Random 195 mg/dL (28-217); Microalbum Creatinine Ratio Ur 5 mg/dL (0-20); Microalbumin Random Urine 1 ug/dL (0-20)
[2022-06-05 13:12] LABS: Estmated Average Glucose 148; Hemoglobin A1C 6.8 % (4.0-6.0)
== END 2022-06-05 11:42 | disposition home or self-care (01) ==
LOC: LAB 11:44
PROVIDERS: PCP Family Medicine; Visit Provider Family Medicine
DX: E11.65 Type 2 diabetes mellitus with hyperglycemia (principal); Z79.4 Long term (current) use of insulin; Z79.899 Other long term (current) drug therapy
CPT/HCPCS: 36415; 80048; 80061; 82043; 82044; 83036

== ENCOUNTER → 2022-11-23 13:42 | Outpatient (BNVA) | payer MEDICAID, SELFPAY | PROVIDERS: PCP Family Medicine; Visit Provider Nurse Practitioner | DX: Z20.822 Contact with and (suspected) exposure to COVID-19 (principal); J02.9 Acute pharyngitis, unspecified | CPT/HCPCS: 87426 ==

== ENCOUNTER 2023-03-11 19:35 | Observation (INO) | payer MEDICAID, SELFPAY ==
--- NOTE | 2023-03-11 19:42 | ED_ITS ---
HPI - Chest Pain General: Chief Complaint: Chest Pain Stated Complaint: Chest Pains Time Seen by Provider: 03/11/23 19:40 History of Present Illness: 57-year-old lady with history of interstitial lung disease, insulin-dependent diabetes, obesity presenting to the emergency department for evaluation of chest pain. She notes onset of symptoms initially intermittently a few weeks ago. Pressure in the middle of her chest which feels like a squeezing associated with shortness of breath, generalized malaise, and at times nausea. Intensity symptoms when present is moderate to severe. Denies specific provoking events. Denies frequent history of similar. No other specific changes in health, exacerbating, or alleviating factors identified. Onset (ago): week(s) Timing of current episode: episodic Pain location: substernal Severity: moderate Quality: tightness Review of Systems General: Reports: 10 or more systems reviewed and unremarkable except in HPI and below PFSH ED PFSH: Medical History Diabetes FUO (fever of unknown origin) Hypersensitivity pneumonitis Interstitial lung disease Malaise and fatigue Persistent headaches Persistent pneumonia Unexplained night sweats Viral syndrome Surgical History H/O: hysterectomy History of temporal artery biopsy Hx of cholecystectomy Status post colonoscopy (07/23/20) Family History Mother Diabetes Sister Diabetes Other Healthy adult No significant family history Social History Smoking and tobacco status: never smoked Second hand smoke exposure: Yes Smoking risk assessment/counseling performed?: No Alcohol intake: never Substance/Drug Use: never Lives independently: Yes Household members: spouse Marital status: Current occupational status: employed 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 Pets and animals: No Do you think of yourself as: Straight/Heterosexual Current gender identity: Female Female Reproductive History: Spontaneous abortions: No Physical Exam Const: COMMON NORMALS: alert GENERAL APPEARANCE: cooperative and well developed HENMT: COMMON NORMALS: normocephalic and atraumatic HEAD & SCALP: normocephalic and atraumatic Eye: COMMON NORMALS: conjunctivae normal CONJUNCTIVA: Yes conjunctivae normal SCLERA: sclerae normal Neck/C-Spine: COMMON NORMALS: supple GENERAL: Yes trachea midline Resp: COMMON NORMALS: clear to auscultation bilaterally EFFORT & INSPECTION: Yes able to speak in complete sentences AUSCULTATION: clear to auscultation bilaterally Cardio: COMMON NORMALS: regular rate and regular rhythm RATE: regular rate RHYTHM: regular rhythm GI: COMMON NORMALS: Soft to palpation PALPATION: Yes Soft to palpation and No Tenderness to palpation present (GI) Extremity: GENERAL: Yes normal exam except as noted and No edema Neuro: COMMON NORMALS: moves all extremities SENSORIUM/ORIENTATION: Yes alert and No Orientation impaired Psych: COMMON NORMALS: mental status grossly normal and Normal thought process present THOUGHT PROCESS: Normal thought process present Course Vital Signs: Vital signs: Vital Signs Temperature 97.7 F 03/12/23 17:38 Pulse Rate 76 03/12/23 17:38 Respiratory Rate 18 03/12/23 17:38 Blood Pressure 133/84 03/12/23 17:38 Pulse Oximetry 90 03/12/23 17:38 Oxygen Delivery Me thod Room Air 03/12/23 16:00 MDM - Chest Pain Medical Decision Making 57-year-old lady presenting with chest pain and shortness of breath. Aspirin prior to arrival. Patient is nontoxic. EKG demonstrates sinus rhythm with left axis deviation, normal intervals, no STEMI. Labs with minimal leukocytosis, normal hemoglobin. Metabolic panel without significant electrolyte derangement. Negative range 2-hour delta troponin. Chest x-ray with no lobar consolidation or pneumothorax. During ED course patient treated with RT treatment and antiemetic. She is not low risk by heart score. I discussed disposition options and risk stratification's. We will proceed with in-hospital testing. The results of ED evaluation were discussed with the patient including plan for admission due to requirement for level of care not available if discharged to prevent significant worsening/deterioration. Patient agreeable with plan. Discussed with hospitalist service who was agreeable to admit patient. Medical Records I reviewed the patient's medical records. Lab Data I reviewed the patient's lab results. 03/11/23 20:00 03/11/23 20:00 Radiology Impressions Chest X-Ray 03/11/23 19:49 IMPRESSION: 1. No acute cardiopulmonary process. 2. Incidental/nonacute findings are listed in the report. Laboratory Results WBC 11.2 10^3/uL (4.0-10.0) H 03/11/23 20:00 RBC 4.47 10^6/uL (4.1-5.3) 03/11/23 20:00 Hgb 13.4 g/dL (11.5-15.3) 03/11/23 20:00 Hct 41.7 % (37.0-47.0) 03/11/23 20:00 MCV 93.3 fl (81-99) 03/11/23 20:00 MCH 30.0 pg (28.0-34.0) 03/11/23 20:00 MCHC 32.1 g/dL (30.0-36.0) 03/11/23 20:00 RDW 12.9 % (12.1-15.1) 03/11/23 20:00 Plt Count 318 10^3/cmm (130-400) 03/11/23 20:00 MPV 10.6 fL (7.4-10.4) H 03/11/23 20:00 Neut % (Auto) 48.5 % 03/11/23 20:00 Lymph % (Auto) 39.2 % 03/11/23 20:00 [place] % (Auto) 9.6 % 03/11/23 20:00 Eos % (Auto) 2.0 % 03/11/23 20:00 Baso % (Auto) 0.3 % 03/11/23 20:00 Neut # (Auto) 5.42 10^3/uL (1.8-7.7) 03/11/23 20:00 Lymph # (Auto) 4.4 10^3/uL (0.8-4.8) 03/11/23 20:00 [place] # (Auto) 1.1 10^3/uL (0.2-0.9) H 03/11/23 20:00 Eos # (Auto) 0.2 10^3/uL (0.0-0.8) 03/11/23 20:00 Baso # (Auto) 0.0 10^3/uL (0.0-0.1) 03/11/23 20:00 Nucleated RBC % (auto) 0 % 03/11/23 20:00 Nucleated RBCs # 0.0 /100WBC 03/11/23 20:00 Sodium 137 mmol/L (136-145) 03/11/23 20:00 Potassium 4.0 mmol/L (3.5-5.1) 03/11/23 20:00 Chloride 101 mmol/L (98-107) 03/11/23 20:00 Carbon Dioxide 25 mmol/L (22-29) 03/11/23 20:00 Anion Gap 15.0 (5-19) 03/11/23 20:00 BUN 9 mg/dL (6-20) 03/11/23 20:00 Creatinine 0.8 mg/dL (0.5-0.9) 03/11/23 20:00 GFR Calculation 73.4 mL/min (90-130) L 03/11/23 20:00 Glucose 170 mg/dL (65-115) H 03/11/23 20:00 Estimat Average Glucose 163 03/11/23 20:00 Hemoglobin A1c 7.3 % (4.0-6.0) H 03/11/23 20:00 Calculated Osmolality 287 mOsm/kg (285-295) 03/11/23 20:00 Calcium 8.9 mg/dL (8.5-10.5) 03/11/23 20:00 Total Bilirubin 0.4 mg/dL (0.15-1.2) 03/11/23 20:00 AST 42 U/L (0-32) H 03/11/23 20:00 ALT 29 U/L (0-33) 03/11/23 20:00 Alkaline Phosphatase 59 U/L (35-105) 03/11/23 20:00 Troponin T Baseline 22 ng/L (0-10) H 03/11/23 20:00 Troponin T 120 Minute 14.22 ng/L (0-10) H 03/11/23 22:00 Delta Troponin T -7.78 ABS# (0-10) L 03/11/23 22:00 NT-Pro-B Natriuret Pep 41 pg/mL (0-125) 03/11/23 20:00 Total Protein 7.3 g/dL (6.6-8.7) 03/11/23 20:00 Albumin 4.0 g/dL (3.5-5.2) 03/11/23 20:00 Globulin 3.3 g/dL (1.3-4.6) 03/11/23 20:00 Triglycerides 146 mg/dL (0-150) 03/11/23 22:19 Cholesterol 164 mg/dL (0-200) 03/11/23 22:19 LDL Cholesterol, Calc 93 mg/dL (50-129) 03/11/23 22:19 HDL Cholesterol 42 mg/dL (60-100) L 03/11/23 22:19 LDL/HDL Ratio 2.21 RATIO (0.00-3.22) 03/11/23 22: Cholesterol/HDL Ratio 3.90 mg/dL (0.0-4.40) 03/11/23 22:19 Lipase 106 U/L (13-60) H 03/11/23 20:00 TSH 4.82 uIU/mL (0.27-4.20) H 03/11/23 22:19 Discharge Plan Discharge Patient Disposition: Placed in Observation Admit Provider: Yuli Chand Clinical Impression: Chest pain Coding Level of Care Code ED Assisted Living Housekeeper for Daisy Hartley
[2023-03-11 19:43] VITALS: BP 147/90; PULSE 89; RESP 22; O2SAT 90; BMI 36.0
--- NOTE | 2023-03-11 19:47 | ECG_ITS ---
[facility] Test Date: 2023-03-11 Pat Name: Angela Estrada Department: Room: 253 Gender: Female Desulfurizer Operator: : 1965 Requested By: Salvatore Rivera Order Number: [id number] Toribio MD: Greg Fuentes M.D. Measurements Intervals [place] Rate: 83 P: 39 TX: 169 QRS: 120 QRSD: 83 T: 54 QT: 371 QTc: 437 Interpretive Statements SINUS RHYTHM POSSIBLE RIGHT VENTRICULAR HYPERTROPHY [SOME/ALL OF: PROMINENT R IN V1, LATE TRANSITION, RAD, VANESSA, SSS] POSSIBLE ANTERIOR MYOCARDIAL INFARCTION , PROBABLY OLD [30 ms Q WAVE IN V3/V4, OR R < 0.2 mV IN V4] Compared to ECG 05/10/2020 11:36:08 No significant changes Electronically Signed On 03-12-2023 9:38:00 CDT by Greg Fuentes M.D. [email or web address]
[2023-03-11 19:49] VITALS: TEMP 36.7
--- NOTE | 2023-03-11 19:49 | XRR_ITS ---
PROCEDURE INFORMATION: Exam: XR Chest Exam date and time: 03/11/2023 8:12 PM Age: 57 years old Clinical indication: Pain; Chest pressure; Additional info: Cp TECHNIQUE: Imaging protocol: Radiologic exam of the chest. Views: 1 view. COMPARISON: CT chest con [id number] 01/11/2021 11:19 AM FINDINGS: Lungs: Lungs are clear bilaterally. Pleural spaces: No pleural effusion. No pneumothorax. Heart/Mediastinum: Stable mild enlargement of the cardiac silhouette. Mediastinal contours are unremarkable. Bones/joints: Unremarkable for age. XR/XR chest 1V portable [id number] IMPRESSION: 1. No acute cardiopulmonary process. 2. Incidental/nonacute findings are listed in the report.
[2023-03-11] MEDS: ondansetron 2 mg/ML SDV 2 mL 4 MG IVP (20:04)
--- NOTE | 2023-03-11 20:08 | PC.NURSE ---
Pt had already recieved 243mg of Aspirin prior to arrival to the ER. MD made aware and order was cancelled.
[2023-03-11 20:10] LABS: Basophils % 0.3 %; Eosinophils # 0.2 10^3/uL (0.0-0.8); Hematocrit 41.7 % (37.0-47.0); Hemoglobin 13.4 g/dL (11.5-15.3); Lymphocytes # 4.4 10^3/uL (0.8-4.8); Lymphocytes % 39.2 %; Mean Corpuscular HGB Conc 32.1 g/dL (30.0-36.0); Mean Corpuscular Volume 93.3 fl (81-99); Mean Platelet Volume 10.6 fL (7.4-10.4); Monocytes # 1.1 10^3/uL (0.2-0.9); Monocytes % 9.6 %; Neutrophils # 5.42 10^3/uL (1.8-7.7); Neutrophils % 48.5 %; Nucleated Red Blood Cells % 0 %; Platelet Count 318 10^3/cmm (130-400); Red Blood Count 4.47 10^6/uL (4.1-5.3); Red Cell Distribution Width 12.9 % (12.1-15.1); White Blood Count 11.2 10^3/uL (4.0-10.0)
[2023-03-11 20:25] LABS: Troponin(5th) Baseline 22 ng/L (0-10)
[2023-03-11] MEDS: ipratropium-albuterol 3 mL Neb INHALATION (20:32)
[2023-03-11 20:33] VITALS: PULSE 78; RESP 18; O2SAT 89
[2023-03-11 20:34] LABS: Alanine Aminotransferase 29 U/L (0-33); Alkaline Phosphatase 59 U/L (35-105); Aspartate Amino Transferase 42 U/L (0-32); Blood Urea Nitrogen 9 mg/dL (6-20); Calcium 8.9 mg/dL (8.5-10.5); Carbon Dioxide 25 mmol/L (22-29); Chloride 101 mmol/L (98-107); Globulin 3.3 g/dL (1.3-4.6); Glomerular Filtration Rate 73.4 mL/min (90-130); Glucose 170 mg/dL (65-115); Lipase 106 U/L (13-60); NT Pro B Type Natriuretic Pept 41 pg/mL (0-125); Osmolality Calculated 287 mOsm/kg (285-295); Sodium 137 mmol/L (136-145); Total Bilirubin 0.4 mg/dL (0.15-1.2); Total Protein 7.3 g/dL (6.6-8.7)
[2023-03-11 20:38] VITALS: PULSE 77; RESP 21; O2SAT 97
--- NOTE | 2023-03-11 21:49 | ECG_ITS ---
[facility] Test Date: 2023-03-11 Pat Name: Angela Estrada Department: Room: Gender: Female Planner/Scheduler: : 1965 Requested By: Salvatore Rivera Order Number: [id number] Toribio MD: Greg Fuentes M.D. Measurements Intervals [place] Rate: 77 P: 15 MD: 168 QRS: -43 QRSD: 94 T: 12 QT: 396 QTc: 449 Interpretive Statements SINUS RHYTHM LEFT AXIS DEVIATION [QRS AXIS < -30] LOW QRS VOLTAGE IN PRECORDIAL LEADS [QRS DEFLECTION < 1.0 mV IN CHEST LEADS] POSSIBLE ANTERIOR MYOCARDIAL INFARCTION , PROBABLY OLD [30 ms Q WAVE IN V3/V4, OR R < 0.2 mV IN V4] Compared to ECG 05/10/2020 11:36:08 Left-axis deviation now present Low QRS voltage now present Atrial abnormality no longer present Myocardial infarct finding still present Electronically Signed On 03-12-2023 9:38:49 CDT by Greg Fuentes M.D. [email or web address]
[2023-03-11 22:40] LABS: Troponin 5 2HR 14.22 ng/L (0-10)
[2023-03-11 23:10] VITALS: BP 107/62; PULSE 72; RESP 16; O2SAT 92
--- NOTE | 2023-03-11 23:35 | P.HP_ITS ---
Providers/Chief Complaint Admitting Physician: Yuli Chand MD Primary Care Provider: Anil Benietz DO Chief Complaint: Chest Pains History of Present Illness Angela Estrada is a 57 year old female With past medical history of additional disease mainly hypersensitivity pneumonitis, insulin-dependent diabetes mellitus, obesity, non-smoker presented to the hospital today for complaint of chest pain that has been going on for the last few weeks. He says it feels like a tightness at the same time patient feels nauseated and with very low energy. She also gets diaphoretic. The pain sometimes radiates into milligrams into her jaw area. She has also been having an occipital headache when she has the chest pain. She states she did not think much of this and took an ibuprofen however that did not take away the pain. Today however her [id number] came over and patient was slumped over on the couch because she felt very fatigued. After she told her story to her [id number] she brought her to the hospital thinking this could be cardiac in nature. Patient denies any other medical problems at this time however does state that her parents did have heart dise ase. She says her mom in her sleep randomly even after her pacemaker was interrogated showing everything was normal. She does not know more details than that. At this point patient is chest pain-free. Denies nausea, vomiting, diarrhea, abdominal pain, constipation. Pain is not reproducible to palpation and not related to breathing at all. There is nothing really makes it better or worse. ED course: 147/90, respiratory 22, pulse 89, temperature 98.0, saturating 90% on room air. WBC 11.2, hemoglobin 13.4, platelets 318 initial EKG showed sinus rhythm possible right ventricular hypertrophy with an old Q wave in V3 V4 subsequent EKG showed similar findings. No acute ST changes. Sodium 137, potassium 4.0, creatinine 0.8, glucose 170, AST 42, initial troponin 22, 2-hour troponin 14.22 with a delta of -7, BNP 41, chest x-ray did not show any acute pathology at this time. Medications/Allergies Home Medications Medication Instructions Recorded Confirmed Last Taken Type alendronate 70 mg tablet 70 mg PO Q7D 05/10/20 03/12/23 07/26/20 History polyethylene glycol 3350 17 17 g PO DAILY PRN Constipation 1103/12/23 07/29/20 History gram/dose oral powder (Miralax) cetirizine 10 mg tablet (Zyrtec) 10 mg PO DAILY 01/26/21 03/12/23 1 Day Ago History ~03/11/23 FreeStyle Rhonda 2 [place] (flash #1 ea 09/07/21 11/23/22 Unknown Rx glucose scanning reader) FreeStyle Rhonda 2 Sensor (flash #1 ea 09/07/21 11/23/22 Unknown Rx glucose sensor) nitrofurantoin macrocrystal 100 mg 100 mg PO BID #10 caps 11/15/21 11/23/22 Unknown Rx capsule albuterol sulfate 90 mcg/actuation 2 puff inhalation Q6H PRN 07/26/22 03/12/23 Unknown Rx aerosol inhaler (ProAir HFA) shortness of breath or wheezing #18 grams trazodone 50 mg tablet 50 mg PO BEDTIME PRN Sleep #60 tabs 10/18/22 03/12/23 2 Days Ago Rx ~03/10/23 citalopram 40 mg tablet 40 mg PO BEDTIME 03/12/23 03/12/23 2 Days Ago History ~03/10/23 glyburide 5 mg tablet 5 mg PO BEDTIME 03/12/23 03/12/23 2 Days Ago History ~03/10/23 insulin glargine 100 unit/mL (3 12 unit SUBCUT DAILY 03/12/23 03/12/23 1 Day Ago History mL) subcutaneous pen (Lantus ~03/11/23 Solostar U-100 Insulin) liraglutide 0.6 mg/0.1 mL (18 mg/3 See Rx Instructions .Route .COMPLEX 03/12/23 03/12/23 1 Day Ago History mL) subcutaneous pen injector ~03/11/23 (Victoza 3-Jeovany) metformin 1,000 mg tablet 1,000 mg PO BID 03/12/23 03/12/23 1 Day Ago History ~03/11/23 Allergies Allergy/AdvReac Type Severity Reaction Status Date / Time No Known Allergies Allergy Verified 11/23/22 12:58 PFSH Acute PFSH: Medical History Diabetes FUO (fever of unknown origin) Hypersensitivity pneumonitis Interstitial lung disease Malaise and fatigue Persistent headaches Persistent pneumonia Unexplained night sweats Viral syndrome Surgical History H/O: hysterectomy History of temporal artery biopsy Hx of cholecystectomy Status post colonoscopy (07/23/20) Family History Mother Diabetes Sister Diabetes Other Healthy adult No significant family history Social History Smoking and tobacco status: never smoked Second hand smoke exposure: Yes Smoking risk assessment/counseling performed?: No Alcohol intake: never Substance/Drug Use: never Lives independently: Yes Household members: spouse Marital status: Current occupational status: employed 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 Pets and animals: No Do you think of yourself as: Straight/Heterosexual Current gender identity: Female Female Reproductive History: Spontaneous abortions: No Vitals/I&O/Wt Last Vital Signs Temp 98.0 F 03/11/23 19:49 Pulse 72 03/11/23 23:10 Resp 16 03/11/23 23:10 BP 107/62 03/11/23 23:10 Pulse Ox 92 03/11/23 23:10 O2 Del Method Room Air 03/11/23 23:10 Weight last 48 hrs Weight 110.677 kg Physical Exam Narrative: General: Alert oriented x3, patient seen sitting up edge of bed, no acute distress HEENT: Normocephalic, atraumatic, EOMI, breathing room air and appears to be comfortable at this time no chest pain Cardio: Regular rate rhythm, normal S1-S2, pain not reproducible to palpation Respiratory: Good bilateral air entry, no wheezes no rhonchi appreciated GI: Abdomen soft, nontender, nondistended, bowel sounds + Behavior: Appropriate and cooperative Extremities: No edema. Data 03/11/23 20:00 03/11/23 20:00 A&P Assessment and plan (1) Chest pain: (2) Obesity (BMI 30-39.9): (3) Uncontrolled type 2 diabetes mellitus: Plan #Chest pain, #Diabetes mellitus, insulin-dependent #History of hypersensitivity pneumonitis #Family history of heart disease ? Patient currently chest pain-free, troponins are negative. Awaiting 6-hour troponin at this time. EKG did not show any acute ischemic changes. ? Check echocardiogram, await 6-hour troponin ? Serial EKGs if symptoms recur ? Start on aspirin, atorvastatin ? DuoNeb every 4 hours as needed ? We will check a stress test in a.m. Lexiscan, if positive will discuss case with cardiology ? Continue Lantus 12 units at bedtime, sliding scale insulin moderate dose intensity ? Hold metformin, hold glimepiride, hold Victoza ? Continue trazodone ? BNP 41 ? Check hemoglobin A1c, lipid profile, TSH Full code, SCDs, heparin subcu twice daily DVT prophylaxis Attestations Medical Necessity Statement*: Observation for chest pain work-up. Expect less than 48-hour stay Coding Level of Care Code G0425 (30 min) TH Encounter Time (min): 40 Patient seen via Telehealth in the acute care setting (hospital or ED location) by agreement and consent of patient or patient quality control representative. Telehealth technology used during the visit includes video and audio. This patient encounter is appropriate and reasonable under the circumstances given the patient?s particular presentation at this time. The patient has been advised of the potential risks and limitations of this mode of treatment (including but not limited to the absence of in-person examination at this time) and has agreed to be treated by an off-site physician for this visit. If deemed clinically necessary from this telehealth visit, or if condition or consent for telehealth visit changes, an in-person visit will be arranged. For this encounter, total time for the origination of telehealth care on this date is as shown. Diagnoses Chest pain R07.9 Obesity (BMI 30-39.9) E66.9 Uncontrolled type 2 diabetes mellitus E11.65
[2023-03-12] VITALS (10 sets, daily range): BP systolic 111–139; BP diastolic 63–88; PULSE 67–88; RESP 17–20; TEMP 36.2–36.8; O2SAT 90–96
--- NOTE | 2023-03-12 | ECG_ITS ---
[facility] Test Date: 2023-03-12 Pat Name: Angela Estrada Department: Room: 253 Gender: Female Subsystems Engineer: Carlinaldo Oro : 1965 Requested By: Yuli Chand Order Number: [id number] Toribio MD: Greg Fuentes M.D. Interpretive Statements NAME OF STUDY: LEXISCAN SESTAMIBI STRESS TEST INDICATION: [Chest Pain, ] Procedure: At the baseline, the blood pressure was 105/84 mmHg with a heart rate of 79 bpm. The electrocardiogram showed normal sinus rhythm,left axis deviation The Lexiscan was infused over a period of 20 seconds. A total of 0.4 mg of Lexiscan was infused. The stress phase was continued for a total of 5 minutes. Heart rate was at the end of stress phase was 91 bpm and a blood pressure of 133/88 mmHg. The EKG at the peak infusion revealed normal sinus rhythm with no significant ST-T wave changes. Sestamibi was injected 20 seconds after the Lexiscan infusion. Blood pressure at the end of recovery phase was 114/86 mmHg with a heart rate of 88 bpm. Conclusion: 1. Normal EKG response to Lexiscan infusion 2. No Lexiscan induced chest pain or cardiac arrhythmia. 3. Normal blood pressure and heart rate response. 4. Sestamibi/sestamibi perfusion scan pending; see separate report. Electronically Signed On 03-17-2023 14:49:24 CDT by Greg Fuentes M.D. [id number]
[2023-03-12 01:03] LABS: Estmated Average Glucose 163; Hemoglobin A1C 7.3 % (4.0-6.0)
--- NOTE | 2023-03-12 01:03 | USCV_ITS ---
Angela Estrada Age: 57 Gender: F : 1965 Exam Date: 03/12/2023 09:22 Ordering Phys: Yuli Chand MD Technologist: Nash Steven Exam Location: [facility] [place] Indication: chest pain BP: 145 / 80 HR: 75 Rhythm: Sinus Technical Quality: Adequate MEASUREMENTS (Male / Female) Normal Values 2D ECHO LV Diastolic Diameter PLAX 3.8 cm 4.2 - 5.9 / 3.9 - 5.3 cm LV Systolic Diameter PLAX 2.5 cm IVS Diastolic Thickness 1.3 cm 0.6 - 1.0 / 0.6 - 0.9 cm IVS Systolic Thickness 1.9 cm LVPW Diastolic Thickness 1.2 cm 0.6 - 1.0 / 0.6 - 0.9 cm LVPW Systolic Thickness 1.5 cm LVOT Diameter 2.6 cm LV Ejection Fraction 2D Teich 62.8 % LV Ejection Fraction MOD 2C 66.2 % LV Ejection Fraction 2C AL 69.9 % LA Diameter 4.4 cm M-MODE Aortic Annulus Diameter 3.8 cm LA Ao Ratio MM 1.2 MV E Point Septal Separation 0.6 cm DOPPLER AV Peak Velocity 127.0 cm/s LVOT Peak Velocity 119.0 cm/s AV Area Cont Eq vti 5.9 cm squared AV Area Cont Eq pk 5.1 cm squared MV Area PHT 3.5 cm squared Mitral E to A Ratio 0.7 MV E' Velocity 33.0 cm/s Mitral E to MV E' Ratio 11.3 Mitral E to LV E' Lateral Ratio 15.5 Mitral E to LV E' Septal Ratio 9.0 TR Peak Velocity 131.4 cm/s TR Peak Gradient 6.9 mmHg TV Peak E Velocity 82.0 cm/s Right Atrial Pressure 3.0 mmHg Pulmonary Artery Systolic Pressu 9.9 mmHg FINDINGS Left Ventricle Left ventricle is normal in size. LV systolic function is normal with EF of 55 to 60%. No regional wall motion abnormalities noted. Grade 1 diastolic dysfunction. Right Ventricle Normal in size and function Right Atrium Normal in size Left Atrium Normal in size Mitral Valve Moderate mitral annular calcification. Aortic Valve Grossly normal. No significant stenosis or regurgitation. Tricuspid Valve Trace tricuspid regurgitation. Insufficient TR jet to calculate RVSP. Pulmonic Valve Not well visualized Pericardium Normal Aorta Mildly dilated IVC Not well visualized CONCLUSIONS LV systolic function is normal with EF of 55 to 60% Grade 1 diastolic dysfunction Trace tricuspid regurgitation Mildly dilated aorta No comparison studies are available Greg Fuentes MD (Electronically Signed) Final Date: 12 March 2023 17:08 S
[2023-03-12] MEDS: sodium chloride 0.9% 1,000 ML 75 ML IV (01:56)
[2023-03-12] MEDS: heparin 5,000 unit/mL INJ 1 mL 5000 UNIT SUBCUT ×2 (01:56→12:55)
[2023-03-12 02:12] LABS: Cholesterol 164 mg/dL (0-200); HDL Cholesterol 42 mg/dL (60-100); LDL Cholesterol Calculated 93 mg/dL (50-129); LDL HDL Ratio 2.21 RATIO (0.00-3.22); Thyroid Stimulating Hormone 4.82 uIU/mL (0.27-4.20); Triglycerides 146 mg/dL (0-150)
[2023-03-12 02:19] LABS: Troponin 5 6HR 16.79 ng/L (0-10); Troponin 5 6HR Delta -5.21 ng/L (0-12)
--- NOTE | 2023-03-12 03:02 | ECG_ITS ---
[facility] Test Date: 2023-03-12 Pat Name: Angela Estrada Department: Room: 253 Gender: Female Sand Technician: : 1965 Requested By: Salvatore Rivera Order Number: [id number] Rooney MD: Greg Fuentes M.D. Measurements Intervals [place] Rate: 70 P: 14 CO: 173 QRS: -39 QRSD: 98 T: 18 QT: 419 QTc: 454 Interpretive Statements SINUS RHYTHM LEFT AXIS DEVIATION [QRS AXIS < -30] LOW QRS VOLTAGE IN PRECORDIAL LEADS [QRS DEFLECTION < 1.0 mV IN CHEST LEADS] PATTERN CONSISTENT WITH PULMONARY DISEASE Compared to ECG 03/11/2023 21:51:11 Myocardial infarct finding no longer present Electronically Signed On 03-12-2023 9:38:21 CDT by Greg Fuentes M.D. [id number]
--- NOTE | 2023-03-12 04:16 | NMCV_ITS ---
NM catie perf SPECT r/s* [id number] Angela Estrada Age: 57 Gender: F : 1965 Exam Date: 03/12/2023 06:41 Ordering Phys: Yuli Chand MD Technologist: MATT Ramsey Exam Location: [facility] Indications: CHEST PAIN STRESS TEST Please see separate stress test report in [facility] for full findings IMAGE PROTOCOL Rest/Stress 1 Lexiscan Day Radiopharmaceutical Dose (mCi) Administration Site Administered by Rest: Tc-99m 10.8 IV MATT Buck Sestamibi Stress:Tc-99m 32.6 IV MATT Buck Sestamibi Rest: 12-Mar-2023 60 Discovery 630 Stress: 12-Mar-2023 30 Discovery 630 0.4mg Lexiscan. Images obtained in supine and prone position. SPECT RESULTS Technical Quality: Excellent Raw Data Analysis: Normal Image Corrections: No attenuation or motion correction applied Summed Stress Score: 2 Summed Rest Score: 2 Summed Difference Score: 1 PERFUSION FINDINGS There is a small in size, partially reversible perfusion defect noted in apical lateral wall. This is consistent with small sized prior infarct with minimal bashir-infarct ischemia in the left circumflex artery territory. FUNCTIONAL RESULTS (calculated via Gated SPECT) Stress Image LV EF (%): 80 Stress EDV (mL):80 TID: 0.92 Stress ESV (mL):16 FUNCTIONAL FINDINGS: There is normal left ventricular systolic function. IMPRESSIONS 1. Small sized prior infarct with minimal bashir-infarct ischemia is seen in the left circumflex artery territory. 2. LV systolic function is normal Greg Fuentes MD (Electronically Signed) Final Date: 12 March 2023 09:36 S
[2023-03-12 06:42] LABS: Glucose Point of Care 159 mg/dL (70-110)
--- NOTE | 2023-03-12 07:15 | PC.NURSE ---
Patuient is Off Unit
[2023-03-12] MEDS: regadenoson 0.4 Mg/5 ml Syringe IVP (07:35)
--- NOTE | 2023-03-12 07:56 | PC.PHAR ---
PT AT STRESS TEST AT 7:50- WILL ATTEMPT MED REC LATER
[2023-03-12] MEDS: pantoprazole DR 40 mg Tablet PO (08:57)
[2023-03-12] MEDS: aspirin 81 mg EC Tablet PO (08:57)
[2023-03-12] MEDS: insulin lispro 100 unit/1 mL SUBCUT ×2 (08:58→11:55)
[2023-03-12] MEDS: pneumococcal (23 valent) SDV 0.5 mL IM (09:58)
[2023-03-12 11:13] LABS: Glucose Point of Care 162 mg/dL (70-110)
--- NOTE | 2023-03-12 16:10 | PM.DCS ---
Discharge Providers Date of Admission: 03/11/23 23:42 Date of Discharge: March 12, 2023 Attending Provider at Admission: Yuli Chand MD Attending Provider at Discharge: Alma Gould MD Primary Care Provider: Anil Benitez DO Diagnoses at Discharge Discharge Diagnosis (1) Chest pain: Status: Acute (2) Obesity (BMI 30-39.9): Status: Acute (3) Uncontrolled type 2 diabetes mellitus: Status: Acute Reason for Visit Reason for Visit: Chest Pains Hospital Course Hospital Course 57 year old female With past medical history of additional disease mainly hypersensitivity pneumonitis, insulin-dependent diabetes mellitus, obesity, who presented to the hospital with complaints of chest pain on and off for the last few weeks which felt like a tightness along with nausea. Sometimes she feels diaphoretic. Serial EKGs did not show any acute ST-T wave changes. Baseline troponin returned at 22, trending down to 14 and 16 at 2 and 6 hours respectively with negative deltas of 7 and 5. She underwent a cardiac stress test with a small sized prior infarct with minimal bashir-infarct ischemia in the left circumflex artery. LV systolic function was grossly normal. An echocardiogram is currently pending. Patient has been chest pain-free since admission to the hospital. Patient denies any past medical history of coronary artery disease. Results of echocardiogram are still pending, however patient states she would prefer to return home and be notified if results are abnormal. She is instructed to return to the hospital in case of any recurrence of chest pain as further evaluation with angiogram will likely be warranted for ongoing chest pain. Physical Exam Narrative: General: No acute distress, AO x3 HEENT: PERRLA, pupils bilaterally equal and reactive, pallors not present Chest: Normal vesicular breath sounds, no added sounds, equal good air entry bilaterally CVS: S1-S2 regular, no murmurs, no tachycardia, no gallops, no rubs Abdomen: Soft, nontender, no organomegaly, bowel sounds present Neuro: No focal deficits, no facial deformity, AO x3, power 5/5 in all limbs Discharge Data Studies Completed and Pending Completed Studies During Hospitalization Category Date Time Status Sestamibi Stress Test Request Routine Exams 03/12/23 06:00 Draft XR chest 1V portable [id number] Stat Exams 03/11/23 19:49 Completed NM catie perf SPECT r/s* [id number] Routine Nuc Med 03/12/23 04:16 Completed Pending at discharge Category Date Time Status Sestamibi Stress Test Request Routine Exams 03/13/23 06:00 Stop Req Basic Metabolic Panel AM LABS Lab 03/13/23 04:00 Ordered Complete Blood Count w/Auto AM LABS Lab 03/13/23 04:00 Ordered Magnesium AM LABS Lab 03/13/23 04:00 Ordered US echo complete [CV. echo complete* [id number]] Routine Ultrasound 03/12/23 01:03 Taken Radiology Impressions Chest X-Ray 03/11/23 19:49 IMPRESSION: 1. No acute cardiopulmonary process. 2. Incidental/nonacute findings are listed in the report. Laboratory Results WBC 11.2 10^3/uL (4.0-10.0) H 03/11/23 20:00 RBC 4.47 10^6/uL (4.1-5.3) 03/11/23 20:00 Hgb 13.4 g/dL (11.5-15.3) 03/11/23 20:00 Hct 41.7 % (37.0-47.0) 03/11/23 20:00 MCV 93.3 fl (81-99) 03/11/23 20:00 MCH 30.0 pg (28.0-34.0) 03/11/23 20:00 MCHC 32.1 g/dL (30.0-36.0) 03/11/23 20:00 RDW 12.9 % (12.1-15.1) 03/11/23 20:00 Plt Count 318 10^3/cmm (130-400) 03/11/23 20:00 MPV 10.6 fL (7.4-10.4) H 03/11/23 20:00 Neut % (Auto) 48.5 % 03/11/23 20:00 Lymph % (Auto) 39.2 % 03/11/23 20:00 [place] % (Auto) 9.6 % 03/11/23 20:00 Eos % (Auto) 2.0 % 03/11/23 20:00 Baso % (Auto) 0.3 % 03/11/23 20:00 Neut # (Auto) 5.42 10^3/uL (1.8-7.7) 03/11/23 20:00 Lymph # (Auto) 4.4 10^3/uL (0.8-4.8) 03/11/23 20:00 [place] # (Auto) 1.1 10^3/uL (0.2-0.9) H 03/11/23 20:00 Eos # (Auto) 0.2 10^3/uL (0.0-0.8) 03/11/23 20:00 Baso # (Auto) 0.0 10^3/uL (0.0-0.1) 03/11/23 20:00 Nucleated RBC % (auto) 0 % 03/11/23 20:00 Nucleated RBCs # 0.0 /100WBC 03/11/23 20:00 Sodium 137 mmol/L (136-145) 03/11/23 20:00 Potassium 4.0 mmol/L (3.5-5.1) 03/11/23 20:00 Chloride 101 mmol/L (98-107) 03/11/23 20:00 Carbon Dioxide 25 mmol/L (22-29) 03/11/23 20:00 Anion Gap 15.0 (5-19) 03/11/23 20:00 BUN 9 mg/dL (6-20) 03/11/23 20:00 Creatinine 0.8 mg/dL (0.5-0.9) 03/11/23 20:00 GFR Calculation 73.4 mL/min (90-130) L 03/11/23 20:00 Glucose 170 mg/dL (65-115) H 03/11/23 20:00 POC Glucose 162 mg/dL (70-110) H 03/12/23 11:11 Estimat Average Glucose 163 03/11/23 20:00 Hemoglobin A1c 7.3 % (4.0-6.0) H 03/11/23 20:00 Calculated Osmolality 287 mOsm/kg (285-295) 03/11/23 20:00 Calcium 8.9 mg/dL (8.5-10.5) 03/11/23 20:00 Total Bilirubin 0.4 mg/dL (0.15-1.2) 03/11/23 20:00 AST 42 U/L (0-32) H 03/11/23 20:00 ALT 29 U/L (0-33) 03/11/23 20:00 Alkaline Phosphatase 59 U/L (35-105) 03/11/23 20:00 Troponin T Baseline 22 ng/L (0-10) H 03/11/23 20:00 Troponin T 120 Minute 14.22 ng/L (0-10) H 03/11/23 22:00 Delta Troponin T -7.78 ABS# (0-10) L 03/11/23 22:00 Troponin T Hi Sens 6Hr 16.79 ng/L (0-10) H 03/12/23 01:50 Troponin T Hi Sens 6Hr Delta -5.21 ng/L (0-12) L 03/12/23 01:50 NT-Pro-B Natriuret Pep 41 pg/mL (0-125) 03/11/23 20:00 Total Protein 7.3 g/dL (6.6-8.7) 03/11/23 20:00 Albumin 4.0 g/dL (3.5-5.2) 03/11/23 20:00 Globulin 3.3 g/dL (1.3-4.6) 03/11/23 20:00 Triglycerides 146 mg/dL (0-150) 03/11/23 22:19 Cholesterol 164 mg/dL (0-200) 03/11/23 22:19 LDL Cholesterol, Calc 93 mg/dL (50-129) 03/11/23 22:19 HDL Cholesterol 42 mg/dL (60-100) L 03/11/23 22:19 LDL/HDL Ratio 2.21 RATIO (0.00-3.22) 03/11/23 22:19 Cholesterol/HDL Ratio 3.90 mg/dL (0.0-4.40) 03/11/23 22:19 Lipase 106 U/L (13-60) H 03/11/23 20:00 TSH 4.82 uIU/mL (0.27-4.20) H 03/11/23 22:19 Vitals Last Vital Signs Temp 98.2 F 03/12/23 12:00 Pulse 74 03/12/23 14:00 Resp 18 03/12/23 12:00 BP 139/63 03/12/23 12:00 Pulse Ox 95 03/12/23 12:00 O2 Del Method Room Air 03/12/23 12:00 Discharge Plan Discharge Patient Disposition: Home Condition: Stable Prescriptions: New nitroglycerin 0.4 mg tablet, sublingual 0.4 mg sublingual Q5M PRN (Reason: chest pain) Qty: 30 0RF Rx Instructions: do not exceed 3 doses per episode Continued cetirizine [Zyrtec] 10 mg tablet 10 mg PO DAILY albuterol sulfate [ProAir HFA] 90 mcg/actuation HFA aerosol inhaler 2 puff INHALATION Q6H PRN (Reason: shortness of breath or wheezing) Qty: 18 3RF (DME) FreeStyle Rhonda 2 [place] Misc See Rx Instructions .Route Qty: 1 0RF Rx Instructions: To check blood sugar 3 times daily (DME) FreeStyle Rhonda 2 Sensor Kit See Rx Instructions .Route Qty: 1 5RF Rx Instructions: To use in FreeStyle Rhonda 2 reader to check blood sugar 3 times daily trazodone 50 mg tablet 50 mg PO BEDTIME PRN (Reason: Sleep) Qty: 60 2RF polyethylene glycol 3350 [Miralax] 17 gram/dose Powder 17 g PO DAILY PRN (Reason: Constipation) citalopram 40 mg tablet 40 mg PO BEDTIME glyburide 5 mg tablet 5 mg PO BEDTIME metformin 1,000 mg tablet 1,000 mg PO BID Lantus Solostar U-100 Insulin 100 unit/mL (3 mL) insulin pen 12 unit SUBCUT DAILY Victoza 3-Jeovany 0.6 mg/0.1 mL (18 mg/3 mL) pen injector See Rx Instructions .ROUTE .COMPLEX Rx Instructions: 1.8 mg daily Ventolin HFA 90 mcg/actuation HFA aerosol inhaler 2 puff INHALATION Q6H PRN (Reason: Shortness Of Breath Or Wheezing) Discharge Orders: Discharge Order (Routine); Ordered 03/12/23 Ordered By: Alma Gould Referrals: Anil Benitez DO [Primary Care Provider] - 03/28/23 11:00 am () Shanna Choi MD [Physician] - 2 weeks (Clinic will call with appointment. ) Patient Instructions: Nitroglycerin, Rapid Release (By mouth), Chest Pain (GEN), Opioid Safety Discharge Attestations Time Spent in Discharge Care*: greater than 30 min Quality Metrics Clinical Quality Measures [ No reported AMI, CVA or VTE this stay] Coding Level of Care Code Acute Code for Chg Fwd Diagnoses Chest pain R07.9 Obesity (BMI 30-39.9) E66.9 Uncontrolled type 2 diabetes mellitus E11.65
[2023-03-12 16:44] LABS: Glucose Point of Care 167 mg/dL (70-110)
== END 2023-03-12 17:35 | disposition home or self-care (01) ==
LOC: ER 22:52 → MEDSURG 23:57
PROVIDERS: Admitting Provider Internal Medicine; Emergency Provider Emergency Medicine; PCP Family Medicine; Visit Provider Student in an Organized Health Care Education/Training Program
DX: R07.9 Chest pain, unspecified (principal); E11.65 Type 2 diabetes mellitus with hyperglycemia; E66.01 Morbid (severe) obesity due to excess calories; Z68.36 Body mass index [BMI] 36.0-36.9, adult; R77.8 Other specified abnormalities of plasma proteins; Z79.84 Long term (current) use of oral hypoglycemic drugs; Z79.4 Long term (current) use of insulin; R11.0 Nausea; Z82.49 Family history of ischemic heart disease and other diseases of the circulatory system; Z23 Encounter for immunization
CPT/HCPCS: 36415; 36416; 71045; 78452; 80053; 80061; 82962; 83036; 83690; 83880; 84443; 84484; 85025; 90471; 90732; 93005; 93017; 93306; 94640; 96361; 96372; 96374; 96375; 99285; A9500; G0378; J1644; J1815; J2405; J2785; J7030

== ENCOUNTER 2023-04-04 12:43 | Outpatient (CLI) | payer OTHER, MEDICAID, SELFPAY ==
--- NOTE | 2023-04-04 13:00 | XR_ITS ---
WS: [id number] SCREENING DEXA SCAN [facility] CLINICAL INFORMATION: M81.0 - Age-related osteoporosis without current patholog... COMPARISON: 2017 FINDINGS: The L1-L4 bone mineral density measures 0.966 g/cm2. This corresponds to a T score score of -1.8 and Z score of -1.8. Left femoral neck bone mineral density measures 0.956 g/cm2. This corresponds to a T score of -0.4 an d Z score of -0.4. Right femoral neck bone mineral density measures 1.027 g/cm2. This corresponds to a T score 0.2of and Z score of 0.2. Mean femoral neck bone mineral density measures 0.992 g/cm2. This corresponds to a T score of -0.1 an d Z score of -0.1. XR/XR DEXA axial skeleton* [id number] IMPRESSION: Osteopenia lumbar spine. Normal bone mineralization femoral necks. Patient's FRAX calculated 10 year probability for major osteoporotic fracture i s 12.9 % and osteoporotic hip fracture is 0.4%. Bone mineral density lumbar spine has increased 7.1% since 2017. Bone mineral density in the femoral necks has increased 4.9% since 2017
== END 2023-04-04 12:44 | disposition home or self-care (01) ==
LOC: RAD 12:45
PROVIDERS: PCP Family Medicine; Visit Provider Family Medicine
DX: M81.0 Age-related osteoporosis without current pathological fracture (principal); Z79.83 Long term (current) use of bisphosphonates
CPT/HCPCS: 77080

== ENCOUNTER 2023-09-03 12:09 | Outpatient (CLI) | payer MEDICAID, SELFPAY ==
--- NOTE | 2023-09-03 12:15 | USCV_ITS ---
Angela Estrada Age: 57 Gender: F : 1965 Exam Date: 09/03/2023 12:21 Ordering Phys: Anil Benitez DO Technologist: Alla Flynn Exam Location: [facility] [place] Indication: RLE pain HISTORY: Recent car trip for 7 days. Pain lateral right knee and posterior knee area PROCEDURES: Venous duplex imaging was performed in only the right lower extremity. The following venous structures were evaluated: common femoral vein, profunda vein, proximal portion of the greater saphenous vein, superficial femoral vein, and the popliteal vein. Serial compression, augmentation maneuvers, and spectral Doppler flow evaluation were performed. FINDINGS: Normal 2-D Doppler and augmentation and compressibility throughout the lower extremity venous structures. Additional imaging through the proximal calf veins also reveals no thrombus. Limited evaluation of the greater saphenous vein is patent with no thrombus. CONCLUSIONS No DVT right lower extremity. Dr. Berenice Lucio DO (Electronically Signed) Final Date: 03 September 2023 13:55 S
== END 2023-09-03 12:10 | disposition home or self-care (01) ==
LOC: RAD 12:10
PROVIDERS: PCP Family Medicine; Visit Provider Family Medicine
DX: M25.561 Pain in right knee (principal)
CPT/HCPCS: 93971

== ENCOUNTER → 2023-11-12 11:46 | Outpatient (BNVA) | payer MEDICAID, SELFPAY | PROVIDERS: PCP Family Medicine; Visit Provider Family Medicine | DX: E11.65 Type 2 diabetes mellitus with hyperglycemia (principal); R11.2 Nausea with vomiting, unspecified; R53.83 Other fatigue; E11.9 Type 2 diabetes mellitus without complications | CPT/HCPCS: 80053; 80061; 82607; 83036; 84439; 84443; 85025 ==

== ENCOUNTER 2024-08-01 09:46 | Outpatient (CLI) | payer MEDICAID, SELFPAY ==
--- NOTE | 2024-08-01 09:48 | MM_ITS ---
WS: [id number] Bilateral screening 3D tomosynthesis digital mammogram, 08/01/2024 10:09 AM Clinical Data: SCREENING Comparison: None. Findings: No spiculated masses or clustered calcifications are seen. There are no secondary signs of carcinoma . MM/MM scr BI tomosynthesis [id number] Impression: Negative bilateral mammogram unchanged. Recommend annual screening mammograms. BIRADS: 1 - Negative. FOLLOW UP: 1 Year Follow-up DENSITY: There are scattered areas of fibroglandular density. The CAD fact checker was used
== END 2024-08-01 09:47 | disposition home or self-care (01) ==
LOC: RAD 09:48
PROVIDERS: PCP Family Medicine; Visit Provider Family Medicine
DX: Z12.31 Encounter for screening mammogram for malignant neoplasm of breast (principal)
CPT/HCPCS: 77063; 77067

== ENCOUNTER → 2024-08-22 18:08 | Outpatient (BNVA) | payer MEDICAID, SELFPAY | PROVIDERS: PCP Family Medicine; Visit Provider Nurse Practitioner Family | DX: R19.7 Diarrhea, unspecified (principal) | CPT/HCPCS: 87400; 87426 ==

== ENCOUNTER 2025-08-17 10:36 | Outpatient (CLI) | payer MEDICAID, SELFPAY ==
--- NOTE | 2025-08-17 10:53 | MM_ITS ---
WS: [id number] VIEWS: MLO and CC views both breasts. 3D digital tomosynthesis is also included in this exam. Comparison made with prior exam of 02/21/2008, 02/28/2010, 08/16/2017, 07/22/2020, 04/19/2022, 08/01/2024.. Findings: There are scattered areas of fibroglandular density. No sign of suspicious mass, tumor calcification or architectural distortion. MM/MM scr BI tomosynthesis [id number] Impression: BI-RADS: 2 - Benign FOLLOW-UP: 1 Year Follow-up This mammogram was also analyzed by the Computer Aided Detection System R2 Imag e Building Maintenance Repairer.
== END 2025-08-17 10:37 | disposition home or self-care (01) ==
LOC: RAD 10:38
PROVIDERS: PCP Family Medicine; Visit Provider Family Medicine
DX: Z12.31 Encounter for screening mammogram for malignant neoplasm of breast (principal); R92.323 Mammographic fibroglandular density, bilateral breasts
CPT/HCPCS: 77063; 77067

== ENCOUNTER 2025-08-21 06:12 | Outpatient (CLI) | payer MEDICAID, SELFPAY ==
--- NOTE | 2025-08-21 06:31 | US_ITS ---
WS: [id number] RIGHT UPPER QUADRANT ULTRASOUND HISTORY: Elevated Liver Enzymes COMPARISON: 03/22/2006 Liver: 17.2 cm in length. Liver is measuring slightly enlarged. Diffuse coarse echotexture throughout the liver from chronic hepatocellular disease as noted on the prior study from 2005. The entire liver is not well visualized due to attenuation. Portal Vein: Normal hepatopetal flow with monophasic waveform. Gallbladder: Prior cholecystectomy. CBD: 0.6 cm Pancreas: Poorly visualized. Right kidney: 9.8 cm in length. Normal size and echogenicity. No hydronephrosis or mass. Aorta and IVC: Unremarkable abdominal aorta and IVC. No ascites. Liquid and food products noted extending through the duodenum. US/US abdomen limited [id number] IMPRESSION: 1. Mild hepatomegaly with advanced hepatocellular disease, likely hepatic stea tosis. 2. Prior cholecystectomy.
== END 2025-08-21 06:13 | disposition home or self-care (01) ==
PROVIDERS: PCP Family Medicine; Visit Provider Family Medicine
DX: R74.8 Abnormal levels of other serum enzymes (principal); R16.0 Hepatomegaly, not elsewhere classified; Z90.49 Acquired absence of other specified parts of digestive tract
CPT/HCPCS: 76705